=== PATIENT | female | born 1940 | race Caucasian/White ===

== ENCOUNTER 2017-03-04 21:08 | Inpatient (IN) | payer MEDICARE, OTHER ==
[2017-03-04 21:52] LABS: CHLORIDE,CL 103 mmol/L (101-111); SODIUM,NA 138 mmol/L (135-145)
[2017-03-04] MEDS ORDERED: Sodium Chloride 0.9% 1,000 ML IV ONE (22:00)
[2017-03-04] MEDS ORDERED: Levofloxacin/Dextrose 5%-Water 500 MG in Premix Bag 1 BAG IV ONE (22:25)
--- NOTE | 2017-03-04 22:45 | EDM.PDOC ---
ED HPI GENERAL MEDICAL PROBLEM - General Chief Complaint: General Stated Complaint: DIFFICULY WALKING AND TALKING Time Seen by Provider: 03/04/17 21:15 Source of Information: Reports: Patient History Limitations: Reports: No Limitations - History of Present Illness INITIAL COMMENTS - FREE TEXT/NARRATIVE: ED per w/c with daughter. Patient c/ weakness and having difficulty getting out ouf chair, describes overall and not related to extremity, Daughter reported that she complained of not feeling well after grandchild's xmas program. This afternoon at 230 patient seemed to have difficulty completing sentences and was more drowsy. Assited to recliner for nap then daughter noted over 1/2 hour to get her out of chair and to vehicle for program. On arrival to program, patient refused to go into school, and sat in vehicle. Daughter notes she went out frequenlty to check on her. Last known well 230 this afternoon. Generalized Pain Score (Numeric/FACES): 2 - Related Data Allergies Allergy/AdvReac Type Severity Reaction Status Date / Time Penicillins Allergy Hives Verified 03/04/17 23:27 [id number] Reductase Allergy Muscle Verified 03/04/17 23:27 Inhibitor Aches Home Meds: Home Meds Amitriptyline [Elavil] 50 mg PO BEDTIME 03/04/17 [History] Aspirin 81 mg PO DAILY 03/04/17 [History] Furosemide [Furosemide] 1 tab PO DAILY 03/04/17 [History] Gabapentin [Neurontin] 300 mg PO BID 03/04/17 [History] Metoprolol Succinate [Toprol XL] 25 mg PO DAILY 03/04/17 [History] Morphine Sulfate [Morphine Sulfate ER] 15 mg PO DAILY PRN 03/04/17 [History] Pantoprazole [ProTONIX] 40 mg PO ACBREAKFAST 03/04/17 [History] Potassium Chloride [Klor-Con 10] 20 meq PO DAILY 03/04/17 [History] amLODIPine [Norvasc] 5 mg PO DAILY 03/04/17 [History] traMADol HCl [Tramadol HCl] 1 tab PO ASDIRECTED PRN 03/04/17 [History] Past Medical History Cardiovascular History: Reports: [place] Neurological History: Reports: CVA Psychiatric History: Reports: None Endocrine/Metabolic History: Reports: None Hematologic History: Reports: None Immunologic History: Reports: None Oncologic (Cancer) History: Reports: None Dermatologic History: Reports: None - Past Surgical History Head Surgeries/Procedures: Reports: None HEENT Surgical History: Reports: Cataract Surgery Musculoskeletal Surgical History: Reports: Knee Replacement Social & Family History - Tobacco Use Smoking Status *Q: Heavy Tobacco Smoker Years of Tobacco use: 50 Packs/Tins Daily: 0.8 - Recreational Drug Use Recreational Drug Use: No ED ROS GENERAL - Review of Systems Review Of Systems: ROS reveals no pertinent complaints other than HPI. ED EXAM, GENERAL - Physical Exam Exam: See Below Exam Limited By: No Limitations General Appearance: Alert, No Apparent Distress Eye Exam: Bilateral Eye: EOMI, PERRL (2mm prior cataract surgery) Ears: Normal External Exam, Normal TMs Nose: Normal Inspection Throat/Mouth: Normal Oropharynx, Normal Voice, Other (faint droop) Head: Atraumatic, Normocephalic Neck: Normal Inspection, Non-Tender, Full Range of Motion Respiratory/Chest: No Respiratory Distress, Lungs Clear, Decreased Breath Sounds Cardiovascular: Normal Peripheral Pulses, Regular Rate, Rhythm GI/Abdominal: Normal Bowel Sounds, Soft, Non-Tender Back Exam: Full Range of Motion Extremities: Normal Inspection, Pedal Edema (trace) Neurological: Alert, Oriented, Normal Cognition, No Motor/Sensory Deficits, Other (faint left facial droop. ) Psychiatric: Normal Affect, Normal Mood Skin Exam: Warm, Dry, Intact Course - Vital Signs Last Recorded V/S: Last Vital Signs Temp 100.0 F 03/05/17 03:26 Pulse 99 03/05/17 03:26 Resp 16 03/05/17 03:26 BP 119/47 L 03/04/17 23:36 Pulse Ox 90 L 03/05/17 03:26 - Orders/Labs/Meds Orders: Active Orders 24 hr Category Date Time Status CULTURE BLOOD [BC] Stat Lab 03/04/17 22:20 Received CULTURE URINE [RM] Stat Lab 03/04/17 21:45 Received Amitriptyline [Elavil] Med 03/05/17 21:00 Active 50 mg PO BEDTIME Aspirin Med 03/05/17 09:00 Active 81 mg PO DAILY Furosemide [Lasix] Med 03/05/17 09:00 Active 40 mg PO DAILY Levofloxacin/Dextrose 5%-Water [Levaquin in D5W 750 MG/ Med 03/06/17 21:00 Active 150 ML] 750 mg Premix Bag 1 bag IV Q48H Metoprolol Succinate [Toprol XL] Med 03/05/17 09:00 Active 25 mg PO DAILY Morphine [MS Contin] Med 03/04/17 23:28 Active 15 mg PO DAILY PRN Pantoprazole [ProTONIX] Med 03/05/17 06:00 Active 40 mg PO ACBREAKFAST Potassium Chloride [Klor-Con 10] Med 03/04/17 23:31 Active 20 meq PO BID Code Status [Resuscitation Status] Routine Resus Stat 03/04/17 22:57 Ordered Medication Orders Acetaminophen (Tylenol) 650 mg PO Q4H PRN PRN Reason: Pain (Mild 1-3)/fever Hydrocodone Bitart/Acetaminophen ([place] 325-10 Mg) 0.5 tab PO Q4H PRN PRN Reason: Pain (moderate 4-6) Albuterol/Ipratropium (Duoneb 3.0-0.5 Mg/3 Ml) 3 ml NEB Q4H PRN PRN Reason: shortness of breath/wheezing Amitriptyline HCl (Elavil) 50 mg PO BEDTIME [facility] Amlodipine Besylate (Norvasc) 5 mg PO DAILY [facility] Aspirin (Aspirin) 81 mg PO DAILY [facility] Enoxaparin Sodium (Lovenox) 40 mg SUBCUT DAILY [facility] Furosemide (Lasix) 40 mg PO DAILY [facility] Gabapentin (Neurontin) 300 mg PO BID [facility] Last Admin: 03/05/17 00:31 Dose: 300 mg Levofloxacin/Dextrose 750 mg/ (Premix) 150 mls @ 100 mls/hr IV Q48H [facility] Sodium Chloride (Normal Saline) 1,000 mls @ 100 mls/hr IV ASDIRECTED [facility] Stop: 03/05/17 09:44 Last Admin: 03/05/17 03:19 Dose: 100 mls/hr Magnesium Hydroxide (Milk Of Magnesia) 30 ml PO Q12H PRN PRN Reason: Constipation Metoprolol Succinate (Toprol Xl) 25 mg PO DAILY [facility] Morphine Sulfate (Ms Contin) 15 mg PO DAILY PRN PRN Reason: Pain Last Admin: 03/05/17 00:18 Dose: 15 mg Ondansetron HCl (Zofran) 4 mg IVPUSH Q6H PRN PRN Reason: Nausea/Vomiting Pantoprazole Sodium (Protonix) 40 mg PO ACBREAKFAST MANJU Polyethylene Glycol (Miralax) 17 gm PO DAILY PRN PRN Reason: Constipation Last Admin: 03/05/17 00:19 Dose: 17 gm Potassium Chloride (Klor-Con 10) 20 meq PO BID [facility] Last Admin: 03/05/17 00:15 Dose: 20 meq Tramadol HCl (Ultram) mg PO ASDIRECTED PRN PRN Reason: Pain Zolpidem Tartrate (Ambien) 5 mg PO BEDTIME PRN PRN Reason: Sleep Last Admin: 03/05/17 00:17 Dose: 5 mg Labs: Laboratory Tests 03/04/17 03/04/17 03/04/17 Range/Units 21:23 21:23 21:23 WBC 17.5 H (5.0-10.0) 10^3/uL RBC 4.94 (4.2-5.4) 10^6/uL Hgb 15.1 (12.0-16.0) g/dL Hct 45.4 (37.0-47.0) % MCV 91.9 (80-100) fL MCH 30.6 (27.0-34.0) pg MCHC 33.3 (33.0-35.0) g/dL Plt Count 275 (150-450) 10^3/uL Neut % (Auto) 70.2 (42.2-75.2) % Lymph % (Auto) 15.6 L (20.5-50.1) % [place] % (Auto) 13.8 H (2-8) % Eos % (Auto) 0.2 L (1.0-3.0) % Baso % (Auto) 0.2 (0.0-1.0) % PT (9.0-12.0) SEC INR (0.9-1.2) Sodium 138 (135-145) mmol/L Potassium 3.2 L (3.6-5.0) mmol/L Chloride 103 (101-111) mmol/L Carbon Dioxide 27.0 (21.0-31.0) mmol/L Anion Gap 11.2 BUN 14 (7-18) mg/dL Creatinine 1.0 (0.6-1.3) mg/dL Est Cr Clr Drug Dosing 34.91 mL/min Estimated GFR (MDRD) 54 BUN/Creatinine Ratio 14.00 Glucose 176 H (74-105) mg/dL POC Glucose (83-110) mg/dl Lactic Acid 1.9 (0.5-2.2) mmol/L Calcium 9.7 (8.4-10.2) mg/dl Magnesium 1.7 L (1.8-2.5) mg/dL Total Bilirubin 0.8 (0.2-1.0) mg/dL AST 18 (10-42) IU/L ALT 9 L (10-60) IU/L Alkaline Phosphatase 124 H (42-121) IU/L Troponin I < 0.02 (0.00-0.02) ng/ml B-Natriuretic Peptide 50 (0-100) pg/ml Total Protein 7.4 (6.7-8.2) g/dl Albumin 3.5 (3.2-5.5) g/dl Globulin 3.9 Albumin/Globulin Ratio 0.90 Urine Color (YELLOW) Urine Appearance (CLEAR) Urine pH (5.0-9.0) Ur Specific [place] (1.005-1.030) Urine Protein (NEGATIVE) Urine Glucose (UA) (NEGATIVE) Urine Ketones (NEGATIVE) Urine Occult Blood (NEGATIVE) Urine Nitrite (NEGATIVE) Urine Bilirubin (NEGATIVE) Urine Urobilinogen (0.2-1.0) mg/dL Ur Leukocyte Esterase (NEGATIVE) Urine RBC /HPF Urine WBC (0-5/HPF) /HPF Ur Epithelial Cells /HPF Urine Bacteria (0-FEW/HPF) /HPF Ketones 03/04/17 03/04/17 03/04/17 Range/Units 21:23 21:23 21:36 WBC (5.0-10.0) 10^3/uL RBC (4.2-5.4) 10^6/uL Hgb (12.0-16.0) g/dL Hct (37.0-47.0) % MCV (80-100) fL MCH (27.0-34.0) pg MCHC (33.0-35.0) g/dL Plt Count (150-450) 10^3/uL Neut % (Auto) (42.2-75.2) % Lymph % (Auto) (20.5-50.1) % [place] % (Auto) (2-8) % Eos % (Auto) (1.0-3.0) % Baso % (Auto) (0.0-1.0) % PT 10.9 (9.0-12.0) SEC INR 1.1 (0.9-1.2) Sodium (135-145) mmol/L Potassium (3.6-5.0) mmol/L Chloride (101-111) mmol/L Carbon Dioxide (21.0-31.0) mmol/L Anion Gap BUN (7-18) mg/dL Creatinine (0.6-1.3) mg/dL Est Cr Clr Drug Dosing mL/min Estimated GFR (MDRD) BUN/Creatinine Ratio Glucose (74-105) mg/dL POC Glucose 211 H (83-110) mg/dl Lactic Acid (0.5-2.2) mmol/L Calcium (8.4-10.2) mg/dl Magnesium (1.8-2.5) mg/dL Total Bilirubin (0.2-1.0) mg/dL AST (10-42) IU/L ALT (10-60) IU/L Alkaline Phosphatase (42-121) IU/L Troponin I (0.00-0.02) ng/ml B-Natriuretic Peptide (0-100) pg/ml Total Protein (6.7-8.2) g/dl Albumin (3.2-5.5) g/dl Globulin Albumin/Globulin Ratio Urine Color (YELLOW) Urine Appearance (CLEAR) Urine pH (5.0-9.0) Ur Specific [place] (1.005-1.030) Urine Protein (NEGATIVE) Urine Glucose (UA) (NEGATIVE) Urine Ketones (NEGATIVE) Urine Occult Blood (NEGATIVE) Urine Nitrite (NEGATIVE) Urine Bilirubin (NEGATIVE) Urine Urobilinogen (0.2-1.0) mg/dL Ur Leukocyte Esterase (NEGATIVE) Urine RBC /HPF Urine WBC (0-5/HPF) /HPF Ur Epithelial Cells /HPF Urine Bacteria (0-FEW/HPF) /HPF Ketones Negative 03/04/ Range/Units 21:43 WBC (5.0-10.0) 10^3/uL RBC (4.2-5.4) 10^6/uL Hgb (12.0-16.0) g/dL Hct (37.0-47.0) % MCV (80-100) fL MCH (27.0-34.0) pg MCHC (33.0-35.0) g/dL Plt Count (150-450) 10^3/uL Neut % (Auto) (42.2-75.2) % Lymph % (Auto) (20.5-50.1) % [place] % (Auto) (2-8) % Eos % (Auto) (1.0-3.0) % Baso % (Auto) (0.0-1.0) % PT (9.0-12.0) SEC INR (0.9-1.2) Sodium (135-145) mmol/L Potassium (3.6-5.0) mmol/L Chloride (101-111) mmol/L Carbon Dioxide (21.0-31.0) mmol/L Anion Gap BUN (7-18) mg/dL Creatinine (0.6-1.3) mg/dL Est Cr Clr Drug Dosing mL/min Estimated GFR (MDRD) BUN/Creatinine Ratio Glucose (74-105) mg/dL POC Glucose (83-110) mg/dl Lactic Acid (0.5-2.2) mmol/L Calcium (8.4-10.2) mg/dl Magnesium (1.8-2.5) mg/dL Total Bilirubin (0.2-1.0) mg/dL AST (10-42) IU/L ALT (10-60) IU/L Alkaline Phosphatase (42-121) IU/L Troponin I (0.00-0.02) ng/ml B-Natriuretic Peptide (0-100) pg/ml Total Protein (6.7-8.2) g/dl Albumin (3.2-5.5) g/dl Globulin Albumin/Globulin Ratio Urine Color Yellow (YELLOW) Urine Appearance Cloudy (CLEAR) Urine pH 5.5 (5.0-9.0) Ur Specific [place] 1.015 (1.005-1.030) Urine Protein 30 H (NEGATIVE) Urine Glucose (UA) 500 H (NEGATIVE) Urine Ketones Negative (NEGATIVE) Urine Occult Blood Moderate H (NEGATIVE) Urine Nitrite Positive H (NEGATIVE) Urine Bilirubin Negative (NEGATIVE) Urine Urobilinogen 1.0 (0.2-1.0) mg/dL Ur Leukocyte Esterase Small H (NEGATIVE) Urine RBC 5-10 H /HPF Urine WBC >100 H (0-5/HPF) /HPF Ur Epithelial Cells Moderate H /HPF Urine Bacteria Many H (0-FEW/HPF) /HPF Ketones Meds: Medications Generic Name Dose Route Start Last Admin Trade Name Freq PRN Reason Stop Dose Admin Acetaminophen 650 mg 03/04/17 23:36 Tylenol PO Q4H PRN Pain (Mild 1-3)/fever Hydrocodone Bitart/Acetaminophen 0.5 tab 03/04/17 23:36 [place] 325-10 Mg PO Q4H PRN Pain (moderate 4-6) Albuterol/Ipratropium 3 ml 03/04/17 23:36 Duoneb 3.0-0.5 Mg/3 Ml NEB Q4H PRN shortness of breath/wheezing Amitriptyline HCl 50 mg 03/05/17 21:00 Elavil PO BEDTIME [facility] Amlodipine Besylate 5 mg 03/05/17 09:00 Norvasc PO DAILY [facility] Aspirin 81 mg 03/05/17 09:00 Aspirin PO DAILY [facility] Enoxaparin Sodium 40 mg 03/05/17 09:00 Lovenox SUBCUT DAILY [facility] Furosemide 40 mg 03/05/17 09:00 Lasix PO DAILY [facility] Gabapentin 300 mg 03/05/17 00:30 03/05/17 00:31 Neurontin PO 300 mg BID [facility] Administration Levofloxacin/Dextrose 750 mg/ 150 mls @ 100 mls/hr 03/06/17 21:00 Premix IV Q48H [facility] Sodium Chloride 1,000 mls @ 100 mls/hr 03/04/17 23:45 03/05/17 03:19 Normal Saline IV 03/05/17 09:44 100 mls/hr ASDIRECTED [facility]JU Administration Magnesium Hydroxide 30 ml 03/04/17 23:36 Milk Of Magnesia PO Q12H PRN Constipation Metoprolol Succinate 25 mg 03/05/17 09:00 Toprol Xl PO DAILY [facility] Morphine Sulfate 15 mg 03/04/17 23:28 03/05/17 00:18 Ms Contin PO 15 mg DAILY PRN Administration Pain Ondansetron HCl 4 mg 03/04/17 23:36 Zofran IVPUSH Q6H PRN Nausea/Vomiting Pantoprazole Sodium 40 mg 03/05/17 06:00 Protonix PO ACBREAKFAST [facility] Polyethylene Glycol 17 gm 03/04/17 23:36 03/05/17 00:19 Miralax PO 17 gm DAILY PRN Administration Constipation Potassium Chloride 20 meq 03/04/17 23:31 03/05/17 00:15 Klor-Con 10 PO 20 meq BID [facility]JU Administration Tramadol HCl mg 03/04/17 23:45 Ultram PO ASDIRECTED PRN Pain Zolpidem Tartrate 5 mg 03/04/17 23:36 03/05/17 00:17 Ambien PO 5 mg BEDTIME PRN Administration Sleep Discontinued Medications Generic Name Dose Route Start Last Admin Trade Name Freq PRN Reason Stop Dose Admin Sodium Chloride 1,000 mls @ 500 mls/hr 03/04/17 22:00 03/04/17 22:04 Normal Saline IV 03/04/17 23:59 200 mls/hr .BOLUS ONE Administration Levofloxacin/Dextrose 500 mg/ 100 mls @ 100 mls/hr 03/04/17 22:25 03/04/17 22 :33 Premix IV 03/04/17 23:24 100 mls/hr ONETIME ONE Administration Sodium Chloride 1,000 mls @ 500 mls/hr 03/04/17 23:45 03/05/17 01:21 Normal Saline IV 03/05/17 01:44 500 mls/hr ASDIRECTED [facility]JU Administration Magnesium Oxide 500 mg 03/04/17 23:34 03/05/17 00:17 Magnesium Oxide PO 03/04/17 23:35 500 mg ONETIME ONE Administration Potassium Chloride 40 meq 03/04/17 23:32 03/05/17 00:14 Klor-Con 10 PO 03/04/17 23:33 40 meq ONETIME ONE Administration - Radiology Interpretation Free Text/Narrative:: CT head negative for acute process. - Re-Assessments/Exams Free Text/Narrative Re-Assessment/Exam: 03/05/17 03:[address] Estrada. Agree to admit for further management of UTI and weakness. Departure - Departure Time of Disposition: 22:48 Disposition: Admitted As Inpatient 67 Condition: Undetermined Clinical Impression: Hyperglycemia, History of CVA (cerebrovascular accident) without residual deficits UTI (urinary tract infection) Qualifiers: Urinary tract infection type: acute cystitis Hematuria presence: without hematuria Qualified Code(s): N30.00 - Acute cystitis without hematuria HTN (hypertension) Qualifiers: Hypertension type: unspecified Qualified Code(s): I10 - Essential (primary) hypertension - Discharge Information - My Orders Last 24 Hours: My Active Orders 03/04/17 21:45 CULTURE URINE [RM] Stat 03/04/17 22:20 CULTURE BLOOD [BC] Stat 03/04/17 22:57 Code Status [Resuscitation Status] Routine - Assessment/Plan Last 24 Hours: My Active Orders 03/04/17 21:45 CULTURE URINE [RM] Stat 03/04/17 22:20 CULTURE BLOOD [BC] Stat 03/04/17 22:57 Code Status [Resuscitation Status] Routine
[2017-03-04] MEDS ORDERED: Potassium Chloride 10 MEQ Tab.ER PO ONE (23:32)
[2017-03-04] MEDS ORDERED: Ondansetron 4 MG/2 ML SDV IVPUSH PRN (23:36)
[2017-03-04] MEDS ORDERED: Magnesium Hydroxide 400 MG/5 ML Susp 30 ML Cup PO PRN (23:36)
[2017-03-04] MEDS ORDERED: Polyethylene Glycol 3350 Powder 17 GM Packet PO PRN (23:36)
[2017-03-04] MEDS ORDERED: Albuterol/Ipratropium 3.0-0.5 MG/3 ML Neb Soln NEB PRN (23:36)
[2017-03-04] MEDS ORDERED: Sodium Chloride 0.9% 1,000 ML IV SCH ×2 (23:45)
--- NOTE | 2017-03-04 23:52 | PCM.HP ---
H&P History of Present Illness - General Date of Service: 03/04/17 Admit Problem/Dx: Admission Diagnosis/Problem Admission Diagnosis/Problem Sepsis Source of Information: Patient, Family (Daughter) History Limitations: Reports: No Limitations - History of Present Illness Initial Comments - Free Text/Narative: 76-year-old female with history of coronary artery disease status post stent, prediabetes, restless leg syndrome, tobacco abuse, insomnia, hypertension, CVA in 1999, COPD presents to the emergency room for not feeling well for the last 3 days. History was obtained from patient and daughter. Patient started feeling groggy was generalized weakness and having dry mouth and decreased urinary frequency for the last 3 days. Today her weakness was worse and felt cold. She was going for event in a car and she felt very weak that she couldn't get out of the car so she was brought to the emergency room. They deny unilateral weakness/numbness/tingling, facial drooping, difficulty swallowing, confusion, fever, nausea, vomiting, chest pain, shortness breath, wheezing, cough, upper respiratory symptoms, sore throat, abdominal pain, urinary frequency, dysuria, changes occur or the smell of the urine, lower extremities edema, any other symptoms or concerns. In emergency room patient heart rate was 91, respiratory rate 22, sats in the low 90s. CT head was unremarkable for acute findings. Laboratory data reported WBC 17.5 K. Potassium 3.2. Glucose 211. Magnesium 1.7. Creatinine 1. LFTs are unremarkable. Troponin and BNP are normal. Her UA was positive for nitrate, moderate occult blood, small leukocyte esterase, 5-10 RBC, more than 100 WBC, many bacteria. She was started on IV fluid of normal saline at 200 mL per hour. Blood and urine cultures were obtained and she was started on Levaquin 750 mg IV. She was admitted to the floor. Generalized Pain Score (Numeric/FACES): 2 - Related Data Allergies/Adverse Reactions: Allergies Allergy/AdvReac Type Severity Reaction Status Date / Time Penicillins Allergy Hives Verified 03/04/17 23:27 Ezcxzer-Wch-Tho Reductase Allergy Muscle Verified 03/04/17 23:27 Inhibitor Aches Home Medications: Home Meds Amitriptyline [Elavil] 50 mg PO BEDTIME 03/04/17 [History] Aspirin 81 mg PO DAILY 03/04/17 [History] Furosemide [Furosemide] 1 tab PO DAILY 03/04/17 [History] Gabapentin [Neurontin] 300 mg PO BID 03/04/17 [History] Metoprolol Succinate [Toprol XL] 25 mg PO DAILY 03/04/17 [History] Morphine Sulfate [Morphine Sulfate ER] 15 mg PO DAILY PRN 03/04/17 [History] Pantoprazole [ProTONIX] 40 mg PO ACBREAKFAST 03/04/17 [History] Potassium Chloride [Klor-Con 10] 20 meq PO DAILY 03/04/17 [History] amLODIPine [Norvasc] 5 mg PO DAILY 03/04/17 [History] traMADol HCl [Tramadol HCl] 1 tab PO ASDIRECTED PRN 03/04/17 [History] Past Medical History Cardiovascular History: Reports: [place] Neurological History: Reports: CVA Psychiatric History: Reports: None Endocrine/Metabolic History: Reports: None Hematologic History: Reports: None Immunologic History: Reports: None Oncologic (Cancer) History: Reports: None Dermatologic History: Reports: None - Past Surgical History Head Surgeries/Procedures: Reports: None HEENT Surgical History: Reports: Cataract Surgery Musculoskeletal Surgical History: Reports: Knee Replacement Social & Family History - Tobacco Use Smoking Status *Q: Heavy Tobacco Smoker Years of Tobacco use: 50 Packs/Tins Daily: 0.8 - Recreational Drug Use Recreational Drug Use: No H&P Review of Systems - Review of Systems: Review Of Systems: ROS reveals no pertinent complaints other than HPI. Exam - Exam Exam: See Below - Vital Signs Vital Signs: Last Vital Signs Temp 37.6 C 03/04/17 21:15 Pulse 91 03/04/17 22:24 Resp 20 03/04/17 22:24 BP 104/51 L 03/04/17 21:45 Pulse Ox 91 L 03/04/17 22:24 Weight: 77.564 kg - Exam General: Alert, Oriented, Cooperative, Mild Distress. No: Moderate Distress, Severe Distress, Sedated, Lethargic, Obtunded HEENT: Conjunctiva Clear, EACs Clear, EOMI, Hearing Intact, Mucosa Moist & [place] , Nares Patent, Normal Nasal Septum, Posterior Pharynx Clear, Pupils Equal, Pupils Reactive, TMs Clear Neck: Supple, Trachea Midline Lungs: Clear to Auscultation, Normal Respiratory Effort. No: Crackles, Rales, Rhonchi, Stridor, Wheezing Cardiovascular: Regular Rate, Regular Rhythm, Normal S1, Normal S2 GI/Abdominal Exam: Normal Bowel Sounds, Soft, Non-Tender, No Organomegaly, No Distention, No Abnormal Bruit, No Mass (Female) Exam: Deferred Rectal (Female) Exam: Deferred Back Exam: Normal Inspection, Full Range of Motion. No: CVA Tenderness (L), CVA Tenderness (R) Extremities: Normal Inspection, Normal Range of Motion, Non-Tender, No Pedal Edema, Normal Capillary Refill Peripheral Pulses: 2+: Radial (L), Radial (R) Skin: Warm, Dry, Intact, Other (Tenting sign is positive) Neurological: Cranial Nerves Intact, Reflexes Equal Bilateral, Strength Equal Bilateral, Normal Speech, Normal Tone, Sensation Intact. No: Focal Deficit Neuro Extensive - Mental Status: Alert, Oriented x3, Normal Mood/Affect, Normal Cognition Psychiatric: Alert, Normal Affect, Normal Mood - Patient Data Result Diagrams: 03/04/17 21:23 03/04/17 21:23 *Q Meaningful Use (ADM) - VTE *Q VTE Criteria *Q: - Stroke *Q Stroke Criteria *Q: - AMI *Q AMI Criteria *Q: - Problem List (1) Sepsis SNOMED Code(s): 01072162 ICD Code: A41.9 - SEPSIS, UNSPECIFIED ORGANISM Status: Acute Priority: High Current Visit: Yes (2) Complicated UTI (urinary tract infection) SNOMED Code(s): 68046163 ICD Code: N39.0 - URINARY TRACT INFECTION, SITE NOT SPECIFIED Status: Acute Priority: High Current Visit: Yes (3) Hyperkalemia SNOMED Code(s): 26424766 ICD Code: E87.5 - HYPERKALEMIA Status: Acute Current Visit: Yes (4) Hypomagnesemia SNOMED Code(s): 939034661 ICD Code: E83.42 - HYPOMAGNESEMIA Status: Acute Current Visit: Yes (5) Dehydration SNOMED Code(s): 78562810 ICD Code: E86.0 - DEHYDRATION Status: Acute Priority: High Current Visit: Yes (6) History of COPD SNOMED Code(s): 403891085 ICD Code: Z87.09 - PERSONAL HISTORY OF OTHER DISEASES OF THE RESPIRATORY SYSTEM Status: Chronic Current Visit: Yes (7) History of coronary artery disease SNOMED Code(s): 345077168 ICD Code: Z86.79 - PERSONAL HISTORY OF OTHER DISEASES OF THE CIRCULATORY SYSTEM Status: Chronic Current Visit: Yes (8) Chronic back pain SNOMED Code(s): 557147614 ICD Code: M54.9 - DORSALGIA, UNSPECIFIED; G89.29 - OTHER CHRONIC PAIN Status: Chronic Current Visit: Yes (9) HTN (hypertension) SNOMED Code(s): 27060795 ICD Code: I10 - ESSENTIAL (PRIMARY) HYPERTENSION Status: Chronic Current Visit: Yes Qualifiers: Hypertension type: unspecified Qualified Code(s): I10 - Essential (primary ) hypertension (10) History of CVA (cerebrovascular accident) without residual deficits Status: Chronic Current Visit: Yes (11) Hyperglycemia SNOMED Code(s): 57967076 ICD Code: R73.9 - HYPERGLYCEMIA, UNSPECIFIED Status: Chronic Current Visit: Yes Problem List Initiated/Reviewed/Updated: Yes Orders Last 24hrs: Active Orders 24 hr Category Date Time Status Patient Status [ADT] Routine ADT 03/04/17 23:36 Active Height and Weight [RC] DAILY Care 03/04/17 23:36 Active Intake and Output [RC] Q6H Care 03/04/17 23:38 Active Notify Provider Vital Signs [RC] ASDIRECTED Care 03/04/17 23:38 Active Oxygen Therapy [RC] PRN Care 03/04/17 23:36 Active RT Aerosol Therapy [RC] ASDIRECTED Care 03/04/17 23:43 Active Up With Assistance [RC] ASDIRECTED Care 03/04/17 23:36 Active Up ad Ana [RC] ASDIRECTED Care 03/04/17 23:36 Active VTE/DVT Education [RC] PER UNIT ROUTINE Care 03/04/17 23:36 Active Vital Signs [RC] Q4H Care 03/04/17 23:36 Active PT Evaluation and Treatment [CONS] Routine Cons 03/04/17 23:36 Active Heart Healthy Diet [DIET] Diet 03/04/17 Breakfast Active BASIC METABOLIC PANEL,BMP [CHEM] AM Lab 03/05/17 05:11 Ordered CBC WITH AUTO DIFF [HEME] AM Lab 03/05/17 05:11 Ordered MAGNESIUM [CHEM] AM Lab 03/05/17 05:11 Ordered Acetaminophen [Tylenol] Med 03/04/17 23:36 Ordered 650 mg PO Q4H PRN Acetaminophen/HYDROcodone [[place] 325-10 MG] Med 03/04/17 23:36 Ordered 0.5 tab PO Q4H PRN Albuterol/Ipratropium [DuoNeb 3.0-0.5 MG/3 ML] Med 03/04/17 23:36 Ordered 3 ml NEB Q4H PRN Amitriptyline [Elavil] Med 03/05/17 21:00 Active 50 mg PO BEDTIME Aspirin Med 03/05/17 09:00 Active 81 mg PO DAILY Enoxaparin [Lovenox] Med 03/05/17 09:00 Ordered 40 mg SUBCUT DAILY Furosemide [Lasix] Med 03/05/17 09:00 Active 40 mg PO DAILY Gabapentin [Neurontin] Med 03/05/17 09:00 Active 300 mg PO BID Levofloxacin/Dextrose 5%-Water [Levaquin in D5W 750 MG/ Med 03/06/17 21:00 Active 150 ML] 750 mg Premix Bag 1 bag IV Q48H Magnesium Hydroxide [Milk of Magnesia] Med 03/04/17 23:36 Ordered 30 ml PO Q12H PRN Metoprolol Succinate [Toprol XL] Med 03/05/17 09:00 Active 25 mg PO DAILY Morphine [MS Contin] Med 03/04/17 23:28 Active 15 mg PO DAILY PRN Ondansetron [Zofran] Med 03/04/17 23:36 Ordered 4 mg IVPUSH Q6H PRN Pantoprazole [ProTONIX] Med 03/05/17 06:00 Active 40 mg PO ACBREAKFAST Polyethylene Glycol 3350 [MiraLAX] Med 03/04/17 23:36 Ordered 17 gm PO DAILY PRN Potassium Chloride [Klor-Con 10] Med 03/04/17 23:31 Active 20 meq PO BID Sodium Chloride 0.9% [Normal Saline] 1,000 ml Med 03/04/17 23:45 Ordered IV ASDIRECTED Sodium Chloride 0.9% [Normal Saline] 1,000 ml Med 03/04/17 23:45 Ordered IV ASDIRECTED Zolpidem [Ambien] Med 03/04/17 23:36 Ordered 5 mg PO BEDTIME PRN amLODIPine [Norvasc] Med 03/05/17 09:00 Ordered 5 mg PO DAILY traMADol [Ultram] Med 03/04/17 23:45 Ordered DOSE mg PO ASDIRECTED PRN Code Status [Resuscitation Status] Routine Resus Stat 03/04/17 22:57 Ordered Medication Orders Acetaminophen (Tylenol) 650 mg PO Q4H PRN PRN Reason: Pain (Mild 1-3)/fever Hydrocodone Bitart/Acetaminophen ([place] 325-10 Mg) 0.5 tab PO Q4H PRN PRN Reason: Pain (moderate 4-6) Albuterol/Ipratropium (Duoneb 3.0-0.5 Mg/3 Ml) 3 ml NEB Q4H PRN PRN Reason: shortness of breath/wheezing Amitriptyline HCl (Elavil) 50 mg PO BEDTIME [facility] Amlodipine Besylate (Norvasc) 5 mg PO DAILY [facility] Aspirin (Aspirin) 81 mg PO DAILY [facility] Enoxaparin Sodium (Lovenox) 40 mg SUBCUT DAILY [facility] Furosemide (Lasix) 40 mg PO DAILY [facility] Gabapentin (Neurontin) 300 mg PO BID [facility] Sodium Chloride (Normal Saline) 1,000 mls @ 500 mls/hr IV .BOLUS ONE Stop: 03/04/17 23:59 Last Admin: 03/04/17 22:04 Dose: 200 mls/hr Levofloxacin/Dextrose 750 mg/ (Premix) 150 mls @ 100 mls/hr IV Q48H MANJU Sodium Chloride (Normal Saline) 1,000 mls @ 500 mls/hr IV ASDIRECTED MANJU Stop: 03/05/17 01:44 Sodium Chloride (Normal Saline) 1,000 mls @ 100 mls/hr IV ASDIRECTED MANJU Stop: 03/05/17 09:44 Magnesium Hydroxide (Milk Of Magnesia) 30 ml PO Q12H PRN PRN Reason: Constipation Metoprolol Succinate (Toprol Xl) 25 mg PO DAILY [facility] Morphine Sulfate (Ms Contin) 15 mg PO DAILY PRN PRN Reason: Pain Ondansetron HCl (Zofran) 4 mg IVPUSH Q6H PRN PRN Reason: Nausea/Vomiting Pantoprazole Sodium (Protonix) 40 mg PO ACBREAKFAST [facility] Polyethylene Glycol (Miralax) 17 gm PO DAILY PRN PRN Reason: Constipation Potassium Chloride (Klor-Con 10) 20 meq PO BID [facility] Tramadol HCl (Ultram) mg PO ASDIRECTED PRN PRN Reason: Pain Zolpidem Tartrate (Ambien) 5 mg PO BEDTIME PRN PRN Reason: Sleep Assessment/Plan Comment:: Impression 76-year-old female with the above past medical history presented with complicated UTI and sepsis, dehydration, hypokalemia, hypomagnesemia. Plan: Continue IV fluid of normal saline at 500 mL for total of 2 L, then start 1 L of normal saline at 100 m-L per hour -Levaquin IV -Awaiting urine and blood cultures -Add potassium chloride 40 mEq 1 time now and continue her daily potassium chloride -Magnesium oxide 500 mg once now -Continue her home medications -repeat labs in am -I and os every 6 hours -Daily weight Lovenox for DVT prophylaxis Patient and daughter requested DNR for CODE STATUS Plan of care was discussed with patient and daughter and to verbalize understanding agreed with
[2017-03-05] MEDS: Potassium Chloride 10 MEQ Tab.ER PO SCH ×3 (00:15→21:03)
[2017-03-05] MEDS: Zolpidem 5 MG Tab PO PRN ×2 (00:17→21:37)
[2017-03-05] MEDS: Morphine 15 MG Tab.ER PO PRN (00:18)
[2017-03-05] MEDS: Gabapentin 300 MG Cap PO SCH ×3 (00:31→21:04)
[2017-03-05] MEDS: Pantoprazole 40 MG Tab.CR PO SCH (05:45)
[2017-03-05 07:18] LABS: CHLORIDE,CL 113 mmol/L (101-111); SODIUM,NA 140 mmol/L (135-145)
[2017-03-05] MEDS: amLODIPine 5 MG Tab PO SCH (08:44)
[2017-03-05] MEDS: Furosemide 40 MG Tab PO SCH (08:45)
[2017-03-05] MEDS: Aspirin 81 MG Tab.Chew PO SCH (08:45)
[2017-03-05] MEDS: Metoprolol Succinate 25 MG Tab.ER PO SCH (08:45)
[2017-03-05] MEDS: Enoxaparin 40 MG/0.4 ML Syringe SUBCUT SCH (09:00)
[2017-03-05] MEDS ORDERED: Gabapentin 300 MG Cap PO SCH (09:00)
--- NOTE | 2017-03-05 11:01 | PCM.PN ---
- General Info Date of Service: 03/05/17 Admission Dx/Problem (Free Text): Admission Diagnosis/Problem Admission Diagnosis/Problem Sepsis Subjective Update: Patient stated that she is feeling better. However she still feeling weak. She denies new symptoms. She denies fever, chills, nausea, vomiting, chest pain, shortness breath, cough, wheezing, abdominal pain, urinary symptoms, any other symptoms or concerns. She had 1 episode of incontinence of large amount of urine yesterday. - Patient Data Vitals - Most Recent: Last Vital Signs Temp 37.6 C 03/05/17 10:49 Pulse 80 03/05/17 10:49 Resp 20 03/05/17 10:49 BP 98/53 L 03/05/17 10:49 Pulse Ox 88 L 03/05/17 10:49 Weight - Most Recent: 77.564 kg I&O - Last 24 Hours: Intake & Output 03/04/17 03/05/17 03/05/17 22:59 06:59 14:59 Intake Total 2937 325 Output Total 350 100 Balance 2587 225 Lab Results Last 24 Hours: Laboratory Results - last 24 hr 03/05/17 03/05/17 Range/Units 06:30 06:30 WBC 18.2 H (5.0-10.0) 10^3/uL RBC 4.24 (4.2-5.4) 10^6/uL Hgb 13.0 D (12.0-16.0) g/dL Hct 39.3 (37.0-47.0) % MCV 92.7 (80-100) fL MCH 30.7 (27.0-34.0) pg MCHC 33.1 (33.0-35.0) g/dL Plt Count 231 (150-450) 10^3/uL Neut % (Auto) 73.3 (42.2-75.2) % Lymph % (Auto) 13.3 L (20.5-50.1) % [place] % (Auto) 13.1 H (2-8) % Eos % (Auto) 0.1 L (1.0-3.0) % Baso % (Auto) 0.2 (0.0-1.0) % Sodium 140 (135-145) mmol/L Potassium 4.3 (3.6-5.0) mmol/L Chloride 113 H (101-111) mmol/L Carbon Dioxide 22.0 (21.0-31.0) mmol/L Anion Gap 9.3 BUN 12 (7-18) mg/dL Creatinine 0.9 (0.6-1.3) mg/dL Est Cr Clr Drug Dosing 40.75 mL/min Estimated GFR (MDRD) > 60 Glucose 140 H (74-105) mg/dL Calcium 8.9 (8.4-10.2) mg/dl Magnesium 1.6 L (1.8-2.5) mg/dL Med Orders - Current: Current Medications Acetaminophen (Tylenol) 650 mg PO Q4H PRN PRN Reason: Pain (Mild 1-3)/fever Hydrocodone Bitart/Acetaminophen ([place] 325-10 Mg) 0.5 tab PO Q4H PRN PRN Reason: Pain (moderate 4-6) Albuterol/Ipratropium (Duoneb 3.0-0.5 Mg/3 Ml) 3 ml NEB Q4H PRN PRN Reason: shortness of breath/wheezing Amitriptyline HCl (Elavil) 50 mg PO BEDTIME [facility] Amlodipine Besylate (Norvasc) 5 mg PO DAILY [facility] Last Admin: 03/05/17 08:44 Dose: 5 mg Aspirin (Aspirin) 81 mg PO DAILY [facility] Last Admin: 03/05/17 08:45 Dose: 81 mg Enoxaparin Sodium (Lovenox) 40 mg SUBCUT DAILY [facility] Furosemide (Lasix) 40 mg PO DAILY [facility] Last Admin: 03/05/17 08:45 Dose: 40 mg Gabapentin (Neurontin) 300 mg PO BID [facility] Last Admin: 03/05/17 08:44 Dose: 300 mg Levofloxacin/Dextrose 750 mg/ (Premix) 150 mls @ 100 mls/hr IV Q48H [facility] Magnesium Hydroxide (Milk Of Magnesia) 30 ml PO Q12H PRN PRN Reason: Constipation Metoprolol Succinate (Toprol Xl) 25 mg PO DAILY [facility] Last Admin: 03/05/17 08:45 Dose: 25 mg Morphine Sulfate (Ms Contin) 15 mg PO DAILY PRN PRN Reason: Pain Last Admin: 03/05/17 00:18 Dose: 15 mg Ondansetron HCl (Zofran) 4 mg IVPUSH Q6H PRN PRN Reason: Nausea/Vomiting Pantoprazole Sodium (Protonix) 40 mg PO ACBREAKFAST [facility] Last Admin: 03/05/17 05:45 Dose: 40 mg Polyethylene Glycol (Miralax) 17 gm PO DAILY PRN PRN Reason: Constipation Last Admin: 03/05/17 00:19 Dose: 17 gm Potassium Chloride (Klor-Con 10) 20 meq PO BID [facility] Last Admin: 03/05/17 08:44 Dose: 20 meq Tramadol HCl (Ultram) mg PO ASDIRECTED PRN PRN Reason: Pain Zolpidem Tartrate (Ambien) 5 mg PO BEDTIME PRN PRN Reason: Sleep Last Admin: 03/05/17 00:17 Dose: 5 mg Discontinued Medications Sodium Chloride (Normal Saline) 1,000 mls @ 500 mls/hr IV .BOLUS ONE Stop: 03/04/17 23:59 Last Admin: 03/04/17 22:04 Dose: 200 mls/hr Levofloxacin/Dextrose 500 mg/ (Premix) 100 mls @ 100 mls/hr IV ONETIME ONE Stop: 03/04/17 23:24 Last Admin: 03/04/17 22:33 Dose: 100 mls/hr Sodium Chloride (Normal Saline) 1,000 mls @ 500 mls/hr IV ASDIRECTED [facility] Stop: 03/05/17 01:44 Last Admin: 03/05/17 01:21 Dose: 500 mls/hr Sodium Chloride (Normal Saline) 1,000 mls @ 100 mls/hr IV ASDIRECTED [facility] Stop: 03/05/17 09:44 Last Admin: 03/05/17 03:19 Dose: 100 mls/hr Magnesium Oxide (Magnesium Oxide) 500 mg PO ONETIME ONE Stop: 03/04/17 23:35 Last Admin: 03/05/17 00:17 Dose: 500 mg Potassium Chloride (Klor-Con 10) 40 meq PO ONETIME ONE Stop: 03/04/17 23:33 Last Admin: 03/05/17 00:14 Dose: 40 meq - Exam General: Alert, Oriented, Cooperative, No Acute Distress HEENT: Pupils Equal, Pupils Reactive, EOMI, Mucous Membr. Moist/[place] Neck: Supple, Trachea Midline Lungs: Clear to Auscultation, Normal Respiratory Effort Cardiovascular: Regular Rate, Regular Rhythm GI/Abdominal Exam: Normal Bowel Sounds, Soft, Non-Tender, No Organomegaly, No Distention, No Abnormal Bruit, No Mass (Female) Exam: Deferred Back Exam: Normal Inspection, Full Range of Motion. No: CVA Tenderness (L), CVA Tenderness (R) Extremities: Normal Inspection, Normal Range of Motion, Non-Tender, No Pedal Edema, Normal Capillary Refill - Problem List & Annotations (1) Sepsis SNOMED Code(s): 92634988 Code(s): A41.9 - SEPSIS, UNSPECIFIED ORGANISM Status: Acute Priority: High Current Visit: Yes (2) Complicated UTI (urinary tract infection) SNOMED Code(s): 06072815 Code(s): N39.0 - URINARY TRACT INFECTION, SITE NOT SPECIFIED Status: Acute Priority: High Current Visit: Yes (3) Hyperkalemia SNOMED Code(s): 42747597 Code(s): E87.5 - HYPERKALEMIA Status: Acute Current Visit: Yes (4) Hypomagnesemia SNOMED Code(s): 887026591 Code(s): E83.42 - HYPOMAGNESEMIA Status: Acute Current Visit: Yes (5) Dehydration SNOMED Code(s): 57427069 Code(s): E86.0 - DEHYDRATION Status: Acute Priority: High Current Visit : Yes (6) History of COPD SNOMED Code(s): 314186462 Code(s): Z87.09 - PERSONAL HISTORY OF OTHER DISEASES OF THE RESPIRATORY SYSTEM Status: Chronic Current Visit: Yes (7) History of coronary artery disease SNOMED Code(s): 434701193 Code(s): Z86.79 - PERSONAL HISTORY OF OTHER DISEASES OF THE CIRCULATORY SYSTEM Status: Chronic Current Visit: Yes (8) Chronic back pain SNOMED Code(s): 982525942 Code(s): M54.9 - DORSALGIA, UNSPECIFIED; G89.29 - OTHER CHRONIC PAIN Status : Chronic Current Visit: Yes (9) HTN (hypertension) SNOMED Code(s): 50462735 Code(s): I10 - ESSENTIAL (PRIMARY) HYPERTENSION Status: Chronic Current Visit: Yes Qualifiers: Hypertension type: unspecified Qualified Code(s): I10 - Essential (primary ) hypertension (10) History of CVA (cerebrovascular accident) without residual deficits Status: Chronic Current Visit: Yes (11) Hyperglycemia SNOMED Code(s): 91923568 Code(s): R73.9 - HYPERGLYCEMIA, UNSPECIFIED Status: Chronic Current Visit : Yes - Problem List Review Problem List Initiated/Reviewed/Updated: Yes - My Orders Last 24 Hours: My Active Orders 03/04/17 23:45 traMADol [Ultram] DOSE mg PO ASDIRECTED PRN 03/05/17 00:30 Gabapentin [Neurontin] 300 mg PO BID 03/05/17 09:00 amLODIPine [Norvasc] 5 mg PO DAILY 03/06/17 05:11 BASIC METABOLIC PANEL,BMP [CHEM] AM CBC WITH AUTO DIFF [HEME] AM - Assessment Assessment:: Impression 76-year-old female with the above past medical history presented with complicated UTI and sepsis, dehydration, hypokalemia, hypomagnesemia. Plan: Patient IV fluid of normal saline at 500 mL for total of 2 L, then start 1 L of normal saline at 100 m-L per hour -Continue Levaquin IV -Awaiting urine and blood cultures -continue her daily potassium chloride -start Magnesium oxide 500 mg bid -Continue her home medications -repeat labs in am -I and os every 6 hours -Daily weight -Physical therapy consult Lovenox for DVT prophylaxis Patient and daughter requested DNR for CODE STATUS - Plan Plan:: Impression 76-year-old female with the above past medical history presented with complicated UTI and sepsis, dehydration, hypokalemia, hypomagnesemia. Plan: Continue IV fluid of normal saline at 500 mL for total of 2 L, then start 1 L of normal saline at 100 m-L per hour -Levaquin IV -Awaiting urine and blood cultures -Add potassium chloride 40 mEq 1 time now and continue her daily potassium chloride -Magnesium oxide 500 mg once now -Continue her home medications -repeat labs in am -I and os every 6 hours -Daily weight Lovenox for DVT prophylaxis Patient and daughter requested DNR for CODE STATUS Plan of care was discussed with patient and daughter and to verbalize understanding agreed with
--- NOTE | 2017-03-05 14:04 | CR ---
Clinical history: 76-year-old hospitalized female patient with clinical "constipation". Interpretation: Flat plate of the abdomen confirm surgical clips gallbladder fossa right upper quadra nt and long midline row of metal jigar lower abdomen. Transverse line of sutures across the lower p tanvi. 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 Dense calcifications left upper quadrant presumably splenic artery. No sign of other foreign body, abdominal soft tissue mass or mechanical bowel obstruction. *No abnormal stool concentrated.
[2017-03-05] MEDS: Amitriptyline 25 MG Tab PO SCH (21:03)
[2017-03-06] MEDS: Acetaminophen 325 MG Tab PO PRN ×3 (00:14→09:47)
[2017-03-06] MEDS: Pantoprazole 40 MG Tab.CR PO SCH (05:08)
[2017-03-06 07:07] LABS: CHLORIDE,CL 110 mmol/L (101-111); SODIUM,NA 139 mmol/L (135-145)
[2017-03-06] MEDS: Enoxaparin 40 MG/0.4 ML Syringe SUBCUT SCH (09:46)
[2017-03-06] MEDS: Aspirin 81 MG Tab.Chew PO SCH (09:46)
[2017-03-06] MEDS: Furosemide 40 MG Tab PO SCH (09:47)
[2017-03-06] MEDS: Potassium Chloride 10 MEQ Tab.ER PO SCH ×2 (09:47→20:42)
[2017-03-06] MEDS: Gabapentin 300 MG Cap PO SCH ×2 (09:47→20:42)
[2017-03-06] MEDS: amLODIPine 5 MG Tab PO SCH (09:50)
[2017-03-06] MEDS: Metoprolol Succinate 25 MG Tab.ER PO SCH (09:51)
--- NOTE | 2017-03-06 11:02 | PCM.PN ---
- General Info Date of Service: 03/06/17 Admission Dx/Problem (Free Text): Admission Diagnosis/Problem Admission Diagnosis/Problem Sepsis Subjective Update: Patient stated that she is feeling better today. Her weakness improved.. She denies new symptoms. She denies fever, chills, nausea, vomiting, chest pain, shortness breath, cough, wheezing, abdominal pain, urinary symptoms, any other symptoms or concerns. - Patient Data Vitals - Most Recent: Last Vital Signs Temp 36.2 C 03/06/17 07:52 Pulse 92 03/06/17 10:24 Resp 20 03/06/17 10:24 BP 107/59 L 03/06/17 10:24 Pulse Ox 93 L 03/06/17 10:24 Weight - Most Recent: 76.022 kg I&O - Last 24 Hours: Intake & Output 03/05/17 03/06/17 03/06/17 22:59 06:59 14:59 Intake Total 350 555 Output Total 900 650 Balance -550 -95 Lab Results Last 24 Hours: Laboratory Results - last 24 hr 03/06/17 03/06/17 Range/Units 05:48 05:48 WBC 11.6 H (5.0-10.0) 10^3/uL RBC 4.09 L (4.2-5.4) 10^6/uL Hgb 12.4 (12.0-16.0) g/dL Hct 38.6 (37.0-47.0) % MCV 94.4 (80-100) fL MCH 30.3 (27.0-34.0) pg MCHC 32.1 L (33.0-35.0) g/dL Plt Count 249 (150-450) 10^3/uL Neut % (Auto) 63.7 (42.2-75.2) % Lymph % (Auto) 20.2 L (20.5-50.1) % [place] % (Auto) 12.8 H (2-8) % Eos % (Auto) 3.0 (1.0-3.0) % Baso % (Auto) 0.3 (0.0-1.0) % Sodium 139 (135-145) mmol/L Potassium 3.8 (3.6-5.0) mmol/L Chloride 110 (101-111) mmol/L Carbon Dioxide 23.0 (21.0-31.0) mmol/L Anion Gap 9.8 BUN 12 (7-18) mg/dL Creatinine 0.9 (0.6-1.3) mg/dL Est Cr Clr Drug Dosing 40.75 mL/min Estimated GFR (MDRD) > 60 Glucose 104 (74-105) mg/dL Calcium 9.6 (8.4-10.2) mg/dl Med Orders - Current: Current Medications Acetaminophen (Tylenol) 650 mg PO Q4H PRN PRN Reason: Pain (Mild 1-3)/fever Last Admin: 03/06/17 09:47 Dose: 650 mg Hydrocodone Bitart/Acetaminophen ([place] 325-10 Mg) 0.5 tab PO Q4H PRN PRN Reason: Pain (moderate 4-6) Albuterol/Ipratropium (Duoneb 3.0-0.5 Mg/3 Ml) 3 ml NEB Q4H PRN PRN Reason: shortness of breath/wheezing Amitriptyline HCl (Elavil) 50 mg PO BEDTIME [facility] Last Admin: 03/05/17 21:03 Dose: 50 mg Amlodipine Besylate (Norvasc) 5 mg PO DAILY [facility] Last Admin: 03/06/17 09:50 Dose: 5 mg Aspirin (Aspirin) 81 mg PO DAILY [facility] Last Admin: 03/06/17 09:46 Dose: 81 mg Enoxaparin Sodium (Lovenox) 40 mg SUBCUT DAILY [facility] Last Admin: 03/06/17 09:46 Dose: 40 mg Furosemide (Lasix) 40 mg PO DAILY [facility] Last Admin: 03/06/17 09:47 Dose: 40 mg Gabapentin (Neurontin) 300 mg PO BID [facility] Last Admin: 03/06/17 09:47 Dose: 300 mg Levofloxacin/Dextrose 750 mg/ (Premix) 150 mls @ 100 mls/hr IV Q48H [facility] Magnesium Hydroxide (Milk Of Magnesia) 30 ml PO Q12H PRN PRN Reason: Constipation Magnesium Oxide (Magnesium Oxide) 500 mg PO BIDM [facility] Last Admin: 03/06/17 09:46 Dose: 500 mg Metoprolol Succinate (Toprol Xl) 25 mg PO DAILY [facility] Last Admin: 03/06/17 09:51 Dose: 25 mg Morphine Sulfate (Ms Contin) 15 mg PO DAILY PRN PRN Reason: Pain Last Admin: 03/05/17 00:18 Dose: 15 mg Ondansetron HCl (Zofran) 4 mg IVPUSH Q6H PRN PRN Reason: Nausea/Vomiting Pantoprazole Sodium (Protonix) 40 mg PO ACBREAKFAST [facility] Last Admin: 03/06/17 05:08 Dose: 40 mg Polyethylene Glycol (Miralax) 17 gm PO DAILY PRN PRN Reason: Constipation Last Admin: 03/05/17 00:19 Dose: 17 gm Potassium Chloride (Klor-Con 10) 20 meq PO BID [facility] Last Admin: 03/06/17 09:47 Dose: 20 meq Tramadol HCl (Ultram) 50 mg PO Q6H PRN PRN Reason: Pain Zolpidem Tartrate (Ambien) 5 mg PO BEDTIME PRN PRN Reason: Sleep Last Admin: 03/05/17 21:37 Dose: 5 mg Discontinued Medications Sodium Chloride (Normal Saline) 1,000 mls @ 500 mls/hr IV .BOLUS ONE Stop: 03/04/17 23:59 Last Admin: 03/04/17 22:04 Dose: 200 mls/hr Levofloxacin/Dextrose 500 mg/ (Premix) 100 mls @ 100 mls/hr IV ONETIME ONE Stop: 03/04/17 23:24 Last Infusion: 03/05/17 13:20 Dose: Infused Sodium Chloride (Normal Saline) 1,000 mls @ 500 mls/hr IV ASDIRECTED [facility] Stop: 03/05/17 01:44 Last Admin: 03/05/17 01:21 Dose: 500 mls/hr Sodium Chloride (Normal Saline) 1,000 mls @ 100 mls/hr IV ASDIRECTED [facility] Stop: 03/05/17 09:44 Last Infusion: 03/05/17 13:20 Dose: Infused Magnesium Oxide (Magnesium Oxide) 500 mg PO ONETIME ONE Stop: 03/04/17 23:35 Last Admin: 03/05/17 00:17 Dose: 500 mg Potassium Chloride (Klor-Con 10) 40 meq PO ONETIME ONE Stop: 03/04/17 23:33 Last Admin: 03/05/17 00:14 Dose: 40 meq - Exam General: Alert, Oriented, Cooperative, No Acute Distress. No: Mild Distress, Moderate Distress, Severe Distress, Sedated, Lethargic, Obtunded HEENT: Pupils Equal, Pupils Reactive, Mucous Membr. Moist/[place] Neck: Supple, Trachea Midline, No JVD, No Thyromegaly Lungs: Clear to Auscultation, Normal Respiratory Effort. No: Crackles, Rales, Rhonchi, Rub, Stridor, Wheezing Cardiovascular: Regular Rate, Regular Rhythm GI/Abdominal Exam: Normal Bowel Sounds, Soft, Non-Tender, No Organomegaly, No Distention, No Abnormal Bruit, No Mass (Female) Exam: Deferred Back Exam: Normal Inspection, Full Range of Motion. No: CVA Tenderness (L), CVA Tenderness (R) Extremities: Normal Inspection, Normal Range of Motion, Non-Tender, No Pedal Edema, Normal Capillary Refill Skin: Dry, Intact. No: Ecchymosis Neurological: No New Focal Deficit Psy/Mental Status: Alert, Normal Affect, Normal Mood - Problem List & Annotations (1) Sepsis SNOMED Code(s): 64184932 Code(s): A41.9 - SEPSIS, UNSPECIFIED ORGANISM Status: Acute Priority: High Current Visit: Yes (2) Complicated UTI (urinary tract infection) SNOMED Code(s): 17115325 Code(s): N39.0 - URINARY TRACT INFECTION, SITE NOT SPECIFIED Status: Acute Priority: High Current Visit: Yes (3) Hyperkalemia SNOMED Code(s): 28045366 Code(s): E87.5 - HYPERKALEMIA Status: Acute Current Visit: Yes (4) Hypomagnesemia SNOMED Code(s): 951682256 Code(s): E83.42 - HYPOMAGNESEMIA Status: Acute Current Visit: Yes (5) Dehydration SNOMED Code(s): 38275100 Code(s): E86.0 - DEHYDRATION Status: Acute Priority: High Current Visit : Yes (6) History of COPD SNOMED Code(s): 739727264 Code(s): Z87.09 - PERSONAL HISTORY OF OTHER DISEASES OF THE RESPIRATORY SYSTEM Status: Chronic Current Visit: Yes (7) History of coronary artery disease SNOMED Code(s): 323577650 Code(s): Z86.79 - PERSONAL HISTORY OF OTHER DISEASES OF THE CIRCULATORY SYSTEM Status: Chronic Current Visit: Yes (8) Chronic back pain SNOMED Code(s): 555967326 Code(s): M54.9 - DORSALGIA, UNSPECIFIED; G89.29 - OTHER CHRONIC PAIN Status : Chronic Current Visit: Yes (9) HTN (hypertension) SNOMED Code(s): 07364797 Code(s): I10 - ESSENTIAL (PRIMARY) HYPERTENSION Status: Chronic Current Visit: Yes Qualifiers: Hypertension type: unspecified Qualified Code(s): I10 - Essential (primary ) hypertension (10) History of CVA (cerebrovascular accident) without residual deficits Status: Chronic Current Visit: Yes (11) Hyperglycemia SNOMED Code(s): 86562359 Code(s): R73.9 - HYPERGLYCEMIA, UNSPECIFIED Status: Chronic Current Visit : Yes - Problem List Review Problem List Initiated/Reviewed/Updated: Yes - My Orders Last 24 Hours: My Active Orders 03/05/17 11:01 Magnesium Oxide 500 mg PO BIDM 03/07/17 05:11 BASIC METABOLIC PANEL,BMP [CHEM] AM CBC WITH AUTO DIFF [HEME] AM MAGNESIUM [CHEM] AM - Assessment Assessment:: Impression 76-year-old female with the above past medical history presented with complicated UTI and sepsis, dehydration, hypokalemia, hypomagnesemia. Urine culture grew gram-negative rods Blood culture no growth for 1 day Plan: Patient received IV fluid of normal saline at 500 mL for total of 2 L, then start 1 L of normal saline at 100 m-L per hour -Continue Levaquin IV -Awaiting urine and blood cultures -continue her daily potassium chloride -Continue Magnesium oxide 500 mg bid -Continue her home medications -repeat labs in am -I and os every 6 hours -Daily weight -Physical therapy consult Lovenox for DVT prophylaxis Patient and daughter requested DNR for CODE STATUS - Plan Plan:: Impression 76-year-old female with the above past medical history presented with complicated UTI and sepsis, dehydration, hypokalemia, hypomagnesemia. Plan: Continue IV fluid of normal saline at 500 mL for total of 2 L, then start 1 L of normal saline at 100 m-L per hour -Levaquin IV -Awaiting urine and blood cultures -Add potassium chloride 40 mEq 1 time now and continue her daily potassium chloride -Magnesium oxide 500 mg once now -Continue her home medications -repeat labs in am -I and os every 6 hours -Daily weight Lovenox for DVT prophylaxis Patient and daughter requested DNR for CODE STATUS Plan of care was discussed with patient and daughter and to verbalize understanding agreed with
--- NOTE | 2017-03-06 11:21 | EKG ---
03/04/2017 - RK SANDY I reviewed the EKG and agree with the machine's reading. [facility] /[id number]
[2017-03-06] MEDS: traMADol 50 MG Tab PO PRN (14:10)
[2017-03-06] MEDS: Acetaminophen/HYDROcodone 325-10 MG Tab PO PRN (20:38)
[2017-03-06] MEDS: Zolpidem 5 MG Tab PO PRN (20:41)
[2017-03-06] MEDS: Amitriptyline 25 MG Tab PO SCH (20:41)
[2017-03-06] MEDS ORDERED: Levofloxacin/Dextrose 5%-Water 750 MG in Premix Bag 1 BAG IV SCH (21:00)
[2017-03-06] MEDS ORDERED: Sodium Chloride 0.9% 10 ML Syringe FLUSH PRN (22:58)
[2017-03-07] MEDS: Acetaminophen 325 MG Tab PO PRN (03:46)
[2017-03-07] MEDS: traMADol 50 MG Tab PO PRN (04:22)
[2017-03-07] MEDS: Acetaminophen/HYDROcodone 325-10 MG Tab PO PRN (05:52)
[2017-03-07] MEDS: Pantoprazole 40 MG Tab.CR PO SCH (05:52)
[2017-03-07 06:38] LABS: CHLORIDE,CL 106 mmol/L (101-111); SODIUM,NA 137 mmol/L (135-145)
--- NOTE | 2017-03-07 10:34 | PCM.DCSUM1 ---
Discharge Summary - Hospital Course Free Text/Narrative:: 76-year-old female with history of coronary artery disease status post stent, prediabetes, restless leg syndrome, tobacco abuse, insomnia, hypertension, CVA in 1999, COPD presented to the emergency room for not feeling well for 3 days. History was obtained from patient and daughter. Patient started feeling groggy with generalized weakness and having dry mouth and decreased urinary frequency. Her weakness got worse and felt cold and she was going for event in a car and she felt very weak that she couldn't get out of the car so she was brought to the emergency room. They deny unilateral weakness/numbness/tingling, facial drooping, difficulty swallowing, confusion, fever, nausea, vomiting, chest pain , shortness breath, wheezing, cough, upper respiratory symptoms, sore throat, abdominal pain, urinary frequency, dysuria, changes occur or the smell of the urine, lower extremities edema, any other symptoms or concerns. In emergency room patient heart rate was 91, respiratory rate 22, sats in the low 90s. CT head was unremarkable for acute findings. Laboratory data reported WBC 17.5 K. Potassium 3.2. Glucose 211. Magnesium 1.7. Creatinine 1. LFTs are unremarkable. Troponin and BNP are normal. Her UA was positive for nitrate, moderate occult blood, small leukocyte esterase, 5-10 RBC, more than 100 WBC, many bacteria. She was started on IV fluid of normal saline at 200 mL per hour. Blood and urine cultures were obtained and she was started on Levaquin 750 mg IV. She was admitted to the floor. Levaquin 750 mg every 48 hours was continued. Patient gradually was getting better. She did not have any fever, chills, nausea, vomiting, flank pain, or any acute events during hospitalization. Urine culture is positive for Escherichia coli and sensitive for Levaquin. Patient is discharged home today to continue a disease of Levaquin. Her magnesium was low at 1.6 and responded to oral magnesium oxidase. I sent her with prescription to continue magnesium oxidase. She was advised to follow-up with her primary care provider next week. Patient verbalized understanding agreed with the discharge planning - Discharge Data Discharge Date: 03/07/17 Discharge Disposition: Home, Self-Care 01 Condition: Good - Discharge Diagnosis/Problem(s) (1) Sepsis SNOMED Code(s): 32057607 ICD Code: A41.9 - SEPSIS, UNSPECIFIED ORGANISM Status: Resolved Priority : High Current Visit: Yes (2) Complicated UTI (urinary tract infection) SNOMED Code(s): 99708681 ICD Code: N39.0 - URINARY TRACT INFECTION, SITE NOT SPECIFIED Status: Acute Priority: High Current Visit: Yes (3) Hyperkalemia SNOMED Code(s): 23830533 ICD Code: E87.5 - HYPERKALEMIA Status: Resolved Current Visit: Yes (4) Hypomagnesemia SNOMED Code(s): 426556189 ICD Code: E83.42 - HYPOMAGNESEMIA Status: Acute Current Visit: Yes (5) Dehydration SNOMED Code(s): 74876857 ICD Code: E86.0 - DEHYDRATION Status: Resolved Priority: High Current Visit: Yes (6) History of COPD SNOMED Code(s): 568347955 ICD Code: Z87.09 - PERSONAL HISTORY OF OTHER DISEASES OF THE RESPIRATORY SYSTEM Status: Chronic Current Visit: Yes (7) History of coronary artery disease SNOMED Code(s): 171627171 ICD Code: Z86.79 - PERSONAL HISTORY OF OTHER DISEASES OF THE CIRCULATORY SYSTEM Status: Chronic Current Visit: Yes (8) Chronic back pain SNOMED Code(s): 371490138 ICD Code: M54.9 - DORSALGIA, UNSPECIFIED; G89.29 - OTHER CHRONIC PAIN Status: Chronic Current Visit: Yes (9) HTN (hypertension) SNOMED Code(s): 10863832 ICD Code: I10 - ESSENTIAL (PRIMARY) HYPERTENSION Status: Chronic Current Visit: Yes Qualifiers: Hypertension type: unspecified Qualified Code(s): I10 - Essential (primary ) hypertension (10) History of CVA (cerebrovascular accident) without residual deficits Status: Chronic Current Visit: Yes (11) Hyperglycemia SNOMED Code(s): 59627371 ICD Code: R73.9 - HYPERGLYCEMIA, UNSPECIFIED Status: Chronic Current Visit: Yes - Patient Instructions Diet: Heart Healthy Diet Activity: As Tolerated Showering/Bathing: May Shower Notify Provider of: Fever, Nausea and/or Vomiting - Discharge Plan Prescriptions/Med Rec: Levofloxacin [Levaquin] 750 mg PO Q48H 8 Days #4 tablet Magnesium Oxide 250 mg PO BIDM #30 tablet Home Medications: Home Meds Amitriptyline [Elavil] 50 mg PO BEDTIME 03/04/17 [History] Aspirin 81 mg PO DAILY 03/04/17 [History] Furosemide 1 tab PO DAILY 03/04/17 [History] Gabapentin [Neurontin] 300 mg PO BID 03/04/17 [History] Metoprolol Succinate [Toprol XL] 25 mg PO DAILY 03/04/17 [History] Morphine Sulfate [Morphine Sulfate ER] 15 mg PO DAILY PRN 03/04/17 [History] Pantoprazole [ProTONIX] 40 mg PO ACBREAKFAST 03/04/17 [History] Potassium Chloride [Klor-Con 10] 20 meq PO DAILY 03/04/17 [History] amLODIPine [Norvasc] 5 mg PO DAILY 03/04/17 [History] traMADol HCl [Tramadol HCl] 1 tab PO ASDIRECTED PRN 03/04/17 [History] Levofloxacin [Levaquin] 750 mg PO Q48H 8 Days #4 tablet 03/07/17 [Rx] Magnesium Oxide 250 mg PO BIDM #30 tablet 03/07/17 [Rx] Patient Handouts: Urinary Tract Infection, Adult - General Info Date of Service: 03/07/17 - Review of Systems General: Reports: No Symptoms HEENT: Reports: No Symptoms Pulmonary: Reports: No Symptoms Cardiovascular: Reports: No Symptoms Gastrointestinal: Reports: No Symptoms Genitourinary: Reports: No Symptoms Musculoskeletal: Reports: No Symptoms (Accept chronic pain) Skin: Reports: No Symptoms Neurological: Reports: No Symptoms Psychiatric: Reports: No Symptoms - Patient Data Vitals - Most Recent: Last Vital Signs Temp 37.1 C 03/07/17 07:00 Pulse 80 03/07/17 07:00 Resp 20 03/07/17 07:00 BP 126/63 03/07/17 07:00 Pulse Ox 95 03/07/17 07:00 Weight - Most Recent: 74.389 kg I&O - Last 24 hours: Intake & Output 03/06/17 03/07/17 03/07/17 22:59 06:59 14:59 Intake Total 1040 671 Output Total 1400 950 400 Balance -864 -675 -499 Lab Results - Last 24 hrs: Laboratory Results - last 24 hr 03/07/17 03/07/17 Range/Units 06:00 06:00 WBC 10.7 H (5.0-10.0) 10^3/uL RBC 4.54 (4.2-5.4) 10^6/uL Hgb 13.9 D (12.0-16.0) g/dL Hct 41.6 (37.0-47.0) % MCV 91.6 (80-100) fL MCH 30.6 (27.0-34.0) pg MCHC 33.4 (33.0-35.0) g/dL Plt Count 302 (150-450) 10^3/uL Neut % (Auto) 62.8 (42.2-75.2) % Lymph % (Auto) 19.4 L (20.5-50.1) % [place] % (Auto) 14.1 H (2-8) % Eos % (Auto) 3.4 H (1.0-3.0) % Baso % (Auto) 0.3 (0.0-1.0) % Sodium 137 (135-145) mmol/L Potassium 3.7 (3.6-5.0) mmol/L Chloride 106 (101-111) mmol/L Carbon Dioxide 23.0 (21.0-31.0) mmol/L Anion Gap 11.7 BUN 10 (7-18) mg/dL Creatinine 0.9 (0.6-1.3) mg/dL Est Cr Clr Drug Dosing 40.75 mL/min Estimated GFR (MDRD) > 60 Glucose 106 H (74-105) mg/dL Calcium 9.8 (8.4-10.2) mg/dl Magnesium 2.0 (1.8-2.5) mg/dL Med Orders - Current: Current Medications Acetaminophen (Tylenol) 650 mg PO Q4H PRN PRN Reason: Pain (Mild 1-3)/fever Last Admin: 03/07/17 03:46 Dose: 650 mg Hydrocodone Bitart/Acetaminophen ([place] 325-10 Mg) 0.5 tab PO Q4H PRN PRN Reason: Pain (moderate 4-6) Last Admin: 03/07/17 05:52 Dose: 0.5 tab Albuterol/Ipratropium (Duoneb 3.0-0.5 Mg/3 Ml) 3 ml NEB Q4H PRN PRN Reason: shortness of breath/wheezing Amitriptyline HCl (Elavil) 50 mg PO BEDTIME [facility] Last Admin: 03/06/17 20:41 Dose: 50 mg Amlodipine Besylate (Norvasc) 5 mg PO DAILY [facility] Last Admin: 03/06/17 09:50 Dose: 5 mg Aspirin (Aspirin) 81 mg PO DAILY [facility] Last Admin: 03/06/17 09:46 Dose: 81 mg Enoxaparin Sodium (Lovenox) 40 mg SUBCUT DAILY [facility] Last Admin: 03/06/17 09:46 Dose: 40 mg Furosemide (Lasix) 40 mg PO DAILY [facility] Last Admin: 03/06/17 09:47 Dose: 40 mg Gabapentin (Neurontin) 300 mg PO BID [facility] Last Admin: 03/06/17 20:42 Dose: 300 mg Levofloxacin/Dextrose 750 mg/ (Premix) 150 mls @ 100 mls/hr IV Q48H [facility] Last Admin: 03/06/17 22:04 Dose: 100 mls/hr Magnesium Hydroxide (Milk Of Magnesia) 30 ml PO Q12H PRN PRN Reason: Constipation Magnesium Oxide (Magnesium Oxide) 500 mg PO BIDM [facility] Last Admin: 03/06/17 17:43 Dose: 500 mg Metoprolol Succinate (Toprol Xl) 25 mg PO DAILY [facility] Last Admin: 03/06/17 09:51 Dose: 25 mg Morphine Sulfate (Ms Contin) 15 mg PO DAILY PRN PRN Reason: Pain Last Admin: 03/05/17 00:18 Dose: 15 mg Ondansetron HCl (Zofran) 4 mg IVPUSH Q6H PRN PRN Reason: Nausea/Vomiting Pantoprazole Sodium (Protonix) 40 mg PO ACBREAKFAST [facility] Last Admin: 03/07/17 05:52 Dose: 40 mg Polyethylene Glycol (Miralax) 17 gm PO DAILY PRN PRN Reason: Constipation Last Admin: 03/05/17 00:19 Dose: 17 gm Potassium Chloride (Klor-Con 10) 20 meq PO BID [facility] Last Admin: 03/06/17 20:42 Dose: 20 meq Sodium Chloride (Saline Flush) 10 ml FLUSH ASDIRECTED PRN PRN Reason: Keep Vein Open Tramadol HCl (Ultram) 50 mg PO Q6H PRN PRN Reason: Pain Last Admin: 03/07/17 04:22 Dose: 50 mg Zolpidem Tartrate (Ambien) 5 mg PO BEDTIME PRN PRN Reason: Sleep Last Admin: 03/06/17 20:41 Dose: 5 mg Discontinued Medications Sodium Chloride (Normal Saline) 1,000 mls @ 500 mls/hr IV .BOLUS ONE Stop: 03/04/17 23:59 Last Admin: 03/04/17 22:04 Dose: 200 mls/hr Levofloxacin/Dextrose 500 mg/ (Premix) 100 mls @ 100 mls/hr IV ONETIME ONE Stop: 03/04/17 23:24 Last Infusion: 03/05/17 13:20 Dose: Infused Sodium Chloride (Normal Saline) 1,000 mls @ 500 mls/hr IV ASDIRECTED [facility] Stop: 03/05/17 01:44 Last Admin: 03/05/17 01:21 Dose: 500 mls/hr Sodium Chloride (Normal Saline) 1,000 mls @ 100 mls/hr IV ASDIRECTED [facility] Stop: 03/05/17 09:44 Last Infusion: 03/05/17 13:20 Dose: Infused Magnesium Oxide (Magnesium Oxide) 500 mg PO ONETIME ONE Stop: 03/04/17 23:35 Last Admin: 03/05/17 00:17 Dose: 500 mg Potassium Chloride (Klor-Con 10) 40 meq PO ONETIME ONE Stop: 03/04/17 23:33 Last Admin: 03/05/17 00:14 Dose: 40 meq - Exam General: Reports: Alert, Oriented, Cooperative. Denies: No Acute Distress, Mild Distress, Moderate Distress, Severe Distress, Sedated, Lethargic, Obtunded HEENT: Reports: Pupils Equal, Pupils Reactive, EOMI, Mucous Membr. Moist/[place] Neck: Reports: Supple, Trachea Midline Lungs: Reports: Clear to Auscultation, Normal Respiratory Effort Cardiovascular: Reports: Regular Rate, Regular Rhythm GI/Abdominal Exam: Normal Bowel Sounds, Soft, Non-Tender, No Organomegaly, No Distention, No Abnormal Bruit, No Mass (Female) Exam: Deferred Rectal (Female) Exam: Deferred Back Exam: Reports: Normal Inspection, Full Range of Motion. Denies: CVA Tenderness (L), CVA Tenderness (R) Extremities: Normal Inspection, Normal Range of Motion, Non-Tender, No Pedal Edema, Normal Capillary Refill Skin: Reports: Warm, Dry, Intact Neurological: Reports: No New Focal Deficit Psy/Mental Status: Reports: Alert, Normal Affect, Normal Mood *Q Meaningful Use (DIS) - VTE *Q VTE Criteria *Q: - Stroke *Q Stroke Criteria *Q: - AMI *Q AMI Criteria *Q:
[2017-03-07] MEDS: Gabapentin 300 MG Cap PO SCH (10:44)
[2017-03-07] MEDS: Furosemide 40 MG Tab PO SCH (10:44)
[2017-03-07] MEDS: Morphine 15 MG Tab.ER PO PRN (10:45)
[2017-03-07] MEDS: Aspirin 81 MG Tab.Chew PO SCH (10:46)
[2017-03-07] MEDS: Potassium Chloride 10 MEQ Tab.ER PO SCH (10:46)
[2017-03-07] MEDS: Enoxaparin 40 MG/0.4 ML Syringe SUBCUT SCH (10:53)
[2017-03-07] MEDS: Metoprolol Succinate 25 MG Tab.ER PO SCH (11:09)
[2017-03-07] MEDS: amLODIPine 5 MG Tab PO SCH (11:10)
== END 2017-03-07 11:40 | disposition home or self-care (01) | DRG 872 ==
LOC: DL.ED 21:08 → UNDOADMIN 22:47 → DL.MS 22:47
PROVIDERS: ADMIT Family Medicine; ATTEND Family Medicine
DX: A41.9 Sepsis, unspecified organism (principal); N30.00 Acute cystitis without hematuria; R53.1 Weakness; B96.20 Unspecified Escherichia coli [E. coli] as the cause of diseases classified elsewhere; I10 Essential (primary) hypertension; E87.5 Hyperkalemia; E83.42 Hypomagnesemia; E86.0 Dehydration; J44.9 Chronic obstructive pulmonary disease, unspecified; I25.10 Atherosclerotic heart disease of native coronary artery without angina pectoris; Z95.5 Presence of coronary angioplasty implant and graft; M54.9 Dorsalgia, unspecified; R73.9 Hyperglycemia, unspecified; R42 Dizziness and giddiness; G25.81 Restless legs syndrome; Z86.73 Personal history of transient ischemic attack (TIA), and cerebral infarction without residual deficits; F17.200 Nicotine dependence, unspecified, uncomplicated; Z88.0 Allergy status to penicillin; Z88.8 Allergy status to other drugs, medicaments and biological substances; Z79.899 Other long term (current) drug therapy
CPT/HCPCS: 36415; 70450; 80053; 81001; 82009; 82962; 83605; 83735; 83880; 84484; 85025; 85610; 87040; 87086; 87088; 87186; 96365; 99285 ×2; J1956; J7030; 74000; 80048; 97161-GP; A9270-GY; J1650

== ENCOUNTER 2018-08-22 19:13 | Emergency (ER) | payer MEDICARE, OTHER ==
[2018-08-22] MEDS ORDERED: Azithromycin 250 MG Tab PO ONE (19:14)
[2018-08-22] MEDS ORDERED: Albuterol 0.083% 2.5 MG/3 ML Neb Soln INH ONE (19:14)
[2018-08-22] MEDS ORDERED: Aspirin 81 MG Tab.Chew PO ONE (19:20)
[2018-08-22] MEDS ORDERED: Albuterol 0.083% 2.5 MG/3 ML Neb Soln NEB ONE (19:20)
--- NOTE | 2018-08-22 19:23 | EDM.PDOC ---
ED HPI GENERAL MEDICAL PROBLEM - General Stated Complaint: HARD TIME BREATHING Time Seen by Provider: 08/22/18 19:15 Source of Information: Reports: Patient, RN History Limitations: Reports: No Limitations - History of Present Illness INITIAL COMMENTS - FREE TEXT/NARRATIVE: ED with c/o SOB since last night. Used neb last night and helped but not today. No cough fever or chills. Hx COPD. No change in swelling. Used inhaler today, Nebulizer medication . PCP in [place]. - Related Data Allergies Allergy/AdvReac Type Severity Reaction Status Date / Time Penicillins Allergy Hives Verified 08/22/18 19:18 [id number]-Vdb Reductase Allergy Muscle Verified 08/22/18 19:18 Inhibitor Aches Home Meds: Home Meds Amitriptyline [Elavil] 50 mg PO BEDTIME 03/04/17 [History] Aspirin 81 mg PO DAILY 03/04/17 [History] Furosemide 1 tab PO DAILY 03/04/17 [History] Gabapentin [Neurontin] 300 mg PO BID 03/04/17 [History] Metoprolol Succinate [Toprol XL] 25 mg PO DAILY 03/04/17 [History] Morphine Sulfate [Morphine Sulfate ER] 15 mg PO DAILY PRN 03/04/17 [History] Pantoprazole [ProTONIX] 40 mg PO ACBREAKFAST 03/04/17 [History] Potassium Chloride [Klor-Con 10] 20 meq PO DAILY 03/04/17 [History] amLODIPine [Norvasc] 5 mg PO DAILY 03/04/17 [History] traMADol HCl [Tramadol HCl] 1 tab PO ASDIRECTED PRN 03/04/17 [History] Levofloxacin [Levaquin] 750 mg PO Q48H 8 Days #4 tablet 03/07/17 [Rx] Magnesium Oxide 250 mg PO BIDM #30 tablet 03/07/17 [Rx] Past Medical History HEENT History: Reports: Cataract Cardiovascular History: Reports: [place] Other Cardiovascular History: 2 stents Respiratory History: Reports: COPD Gastrointestinal History: Reports: Cholelithiasis, GERD Genitourinary History: Reports: None 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: Neurological History: Reports: CVA Psychiatric History: Reports: None Endocrine/Metabolic History: Reports: None Hematologic History: Reports: None Immunologic History: Reports: None Oncologic (Cancer) History: Reports: None Dermatologic History: Reports: None - Infectious Disease History Infectious Disease History: Reports: Chicken Pox, Measles, Mumps, Pertussis ( Whooping Cough) - Past Surgical History Head Surgeries/Procedures: Reports: None HEENT Surgical History: Reports: Cataract Surgery Musculoskeletal Surgical History: Reports: Knee Replacement Social & Family History - Caffeine Use Caffeine Use: Reports: None ED ROS GENERAL - Review of Systems Review Of Systems: See Below Constitutional: Denies: Fever, Chills HEENT: Reports: No Symptoms Respiratory: Reports: Shortness of Breath, Cough (ocassional no productive). Denies: Wheezing, Pleuritic Chest Pain Cardiovascular: Reports: Edema (usual unchanged, worse at night, betterin am). Denies: Chest Pain, Lightheadedness GI/Abdominal: Reports: No Symptoms : Reports: Frequency (after taking lasix in am) Neurological: Reports: No Symptoms Psychiatric: Reports: No Symptoms ED EXAM, GENERAL - Physical Exam Exam: See Below Exam Limited By: No Limitations General Appearance: Alert, Mild Distress, Obese Eye Exam: Bilateral Eye: EOMI Ears: Normal External Exam, Normal TMs Nose: Normal Inspection Throat/Mouth: Normal Inspection Head: Atraumatic, Normocephalic Neck: Normal Inspection Respiratory/Chest: No Respiratory Distress, Decreased Breath Sounds. No: Respiratory Distress, Rales, Rhonchi Cardiovascular: Normal Peripheral Pulses, Regular Rate, Rhythm GI/Abdominal: Normal Bowel Sounds, No Mass Back Exam: Full Range of Motion Extremities: Pedal Edema (2) Neurological: Alert, Oriented, Normal Cognition, Normal Gait, No Motor/Sensory Deficits Psychiatric: Normal Affect, Normal Mood Skin Exam: Warm, Dry, Intact, Normal Color Course - Vital Signs Last Recorded V/S: Last Vital Signs Temp 98.7 F 08/22/18 19:18 Pulse 69 08/22/18 20:20 Resp 18 08/22/18 20:20 BP 167/64 H 08/22/18 20:20 Pulse Ox 90 L 08/22/18 20:20 - Orders/Labs/Meds Orders: Active Orders 24 hr Category Date Time Status EKG 12 Lead [EKG Documentation Completion] [RC] URGENT Care 08/22/18 19:20 Active RT Aerosol Therapy [RC] ASDIRECTED Care 08/22/18 19:21 Active Chest 1V Frontal [CR] Urgent Exams 08/22/18 19:20 Taken Labs: Laboratory Tests 08/22/18 08/22/18 08/22/18 Range/Units 19:35 19:35 19:35 WBC 11.6 H (5.0-10.0) 10^3/uL RBC 5.11 (4.2-5.4) 10^6/uL Hgb 15.6 D (12.0-16.0) g/dL Hct 46.5 (37.0-47.0) % MCV 91.0 (80-100) fL MCH 30.5 (27.0-34.0) pg MCHC 33.5 (33.0-35.0) g/dL Plt Count 286 (150-450) 10^3/uL Neut % (Auto) 52.3 (42.2-75.2) % Lymph % (Auto) 33.7 (20.5-50.1) % [place] % (Auto) 10.3 H (2-8) % Eos % (Auto) 3.4 H (1.0-3.0) % Baso % (Auto) 0.3 (0.0-1.0) % Sodium 139 (135-145) mmol/L Potassium 3.7 (3.6-5.0) mmol/L Chloride 108 (101-111) mmol/L Carbon Dioxide 21.0 (21.0-31.0) mmol/L Anion Gap 13.7 BUN 10 (7-18) mg/dL Creatinine 0.7 (0.6-1.3) mg/dL Est Cr Clr Drug Dosing 49.11 mL/min Estimated GFR (MDRD) > 60 BUN/Creatinine Ratio 14.28 Glucose 118 H (74-105) mg/dL Calcium 9.4 (8.4-10.2) mg/dl Magnesium 1.9 (1.8-2.5) mg/dL Total Bilirubin 0.3 (0.2-1.0) mg/dL AST 21 (10-42) IU/L ALT 23 (10-60) IU/L Alkaline Phosphatase 108 (42-121) IU/L CK-MB (CK-2) 2.10 (0.4-4.7) ng/mL Troponin I < 0.02 (0.00-0.02) ng/ml B-Natriuretic Peptide 130 H (0-100) pg/ml Total Protein 6.8 (6.7-8.2) g/dl Albumin 3.6 (3.2-5.5) g/dl Globulin 3.2 Albumin/Globulin Ratio 1.13 Amylase 37 (28-100) U/L Lipase 30 (22-51) U/L Meds: Medications Discontinued Medications Generic Name Dose Route Start Last Admin Trade Name Rajiq PRN Reason Stop Dose Admin Albuterol 2.5 mg 08/22/18 19:20 08/22/18 19:40 Proventil Neb Soln NEB 08/22/18 19:21 2.5 mg ONETIME ONE Administration Albuterol Confirm 08/22/18 20:41 08/22/18 21:02 Proventil Neb Soln Administered 08/22/18 20:42 Not Given Dose 2.5 mg .ROUTE .STK-MED ONE Aspirin 324 mg 08/22/18 19:20 08/22/18 19:33 Aspirin PO 08/22/18 19:21 324 mg ONETIME ONE Administration Azithromycin Confirm 08/22/18 20:41 08/22/18 21:02 Zithromax Administered 08/22/18 20:42 Not Given Dose 500 mg .ROUTE .STK-MED ONE - Radiology Interpretation Free Text/Narrative:: [facility] Final Radiology Report Call: [phone] assistance Online chat: [email or web address] Name: RK SANDY Age: 77Years F Date: 08/22/2018 SSN: -- : [id number] Study: XR CHEST 1 VIEW FRONTAL Requesting Physician: ACE HAMPTON Images: 1 Addl Studies: Provided Clinical History: Contrast: Contrast Medium: Contrast Amount: Contrast Method: CONFIDENTIALITY STATEMENT This report is intended only for use by the referring physician, and only in accordance with law. If you received this in error, call [phone]. Page 1 of 1 EXAM: XR Chest, 1 View EXAM DATE/TIME: 08/22/2018 7:28 PM CLINICAL HISTORY: 77 years old, female; Signs and symptoms; Shortness of breath TECHNIQUE: Imaging protocol: XR of the chest, 1 view. COMPARISON: CR CHEST PA/LAT 11/30/2008 7:01 PM FINDINGS: Lungs: Atelectatic and/or early infiltrative changes and within the lung bases. Pleural space: No large pleural effusions or pneumothorax. Heart/Mediastinum: Unremarkable. No cardiomegaly. Bones/joints: Unremarkable. Soft tissues: The vasculature demonstrates diffuse moderate atherosclerotic calcification. IMPRESSION: Atelectatic and/or early infiltrative changes and within the lung bases. Thank you for allowing us to participate in the care of your patient. Dictated and Authenticated by: Kael Velazquez DO 08/22/2018 8:18 PM Central Time ([place] & [place]) - Re-Assessments/Exams Free Text/Narrative Re-Assessment/Exam: 08/23/18 01:48 Reports breathing improved following neb with almost complete return to baseline Departure - Departure Time of Disposition: 20:34 Disposition: Home, Self-Care 01 Condition: Good Clinical Impression: COPD (chronic obstructive pulmonary disease) Qualifiers: COPD type: COPD with acute lower respiratory infection Qualified Code(s): J44.0 - Chronic obstructive pulmonary disease with acute lower respiratory infection - Discharge Information *PRESCRIPTION DRUG MONITORING PROGRAM REVIEWED*: No *COPY OF PRESCRIPTION DRUG MONITORING REPORT IN PATIENT BHARATHI: No Instructions: Chronic Obstructive Pulmonary Disease Exacerbation, [id number] Referrals: PCP,None [Primary Care Provider] - Forms: ED Department Discharge Additional Instructions: Clinic follow up later this week for recheck albuterol 2.5mg/3ml one every 4 hours as needed for SOB cough wheeze continue home medications azithromycin 500mg one tonight then 250mg daily x 4 urgent follow up symptoms worsen fever, chest pain productive cough. - My Orders Last 24 Hours: My Active Orders 08/22/18 19:20 EKG 12 Lead [EKG Documentation Completion] [RC] URGENT Chest 1V Frontal [CR] Urgent 08/22/18 19:21 RT Aerosol Therapy [RC] ASDIRECTED - Assessment/Plan Last 24 Hours: My Active Orders 08/22/18 19:20 EKG 12 Lead [EKG Documentation Completion] [RC] URGENT Chest 1V Frontal [CR] Urgent 08/22/18 19:21 RT Aerosol Therapy [RC] ASDIRECTED
[2018-08-22 20:03] LABS: ANION GAP 13.7; CHLORIDE,CL 108 mmol/L (101-111); SODIUM,NA 139 mmol/L (135-145)
[2018-08-22] MEDS ORDERED: Albuterol 0.083% 2.5 MG/3 ML Neb Soln ONE (20:41)
[2018-08-22] MEDS ORDERED: Azithromycin 250 MG Tab ONE (20:41)
== END 2018-08-22 20:55 | disposition home or self-care (01) ==
LOC: DL.ED 19:13
DX: J44.0 Chronic obstructive pulmonary disease with (acute) lower respiratory infection (principal); K21.9 Gastro-esophageal reflux disease without esophagitis; I25.2 Old myocardial infarction; Z79.899 Other long term (current) drug therapy; Z79.82 Long term (current) use of aspirin; Z88.0 Allergy status to penicillin; Z88.8 Allergy status to other drugs, medicaments and biological substances
CPT/HCPCS: 36415; 71045; 80053; 82150; 82553; 83690; 83735; 83880; 84484; 85025; 93005; 94640; 99285; A9270; J7613-GY

== ENCOUNTER 2019-03-02 13:36 | Inpatient (IN) | payer MEDICARE, OTHER ==
[2019-03-02] MEDS ORDERED: Albuterol/Ipratropium 3.0-0.5 MG/3 ML Neb Soln NEB ONE (14:02)
--- NOTE | 2019-03-02 14:10 | EDM.PDOC ---
ED HPI GENERAL MEDICAL PROBLEM - General Chief Complaint: Respiratory Problem Stated Complaint: TROUBLE BREATHING Time Seen by Provider: 03/02/19 13:55 Source of Information: Reports: Patient History Limitations: Reports: No Limitations - History of Present Illness INITIAL COMMENTS - FREE TEXT/NARRATIVE: This 78 yo female patient reports to the ED with increased shortness of breath. The patient reports she just returned to [place] from the [place] in [place]. The patient was diagnosed with Asthma today. The patient reports she was started on Advair, but she has not started the medications at this time. The patient reports her shortness of breath has been getting worse throughout the day today. Onset: Today Duration: Constant, Getting Worse Location: Reports: Chest Quality: Reports: Other Severity: Severe Improves with: Reports: None Worsens with: Reports: None Context: Reports: Other Associated Symptoms: Reports: No Other Symptoms - Related Data Allergies Allergy/AdvReac Type Severity Reaction Status Date / Time Penicillins Allergy Hives Verified 10/15/18 06:38 [id number]-Nti-Lzj Reductase Allergy Muscle Verified 10/15/18 06:38 Inhibitor Aches Home Meds: Home Meds Amitriptyline [Elavil] 50 mg PO BEDTIME 03/04/17 [History] Furosemide 20 mg PO BID 03/04/17 [History] Gabapentin [Neurontin] 300 mg PO BID 03/04/17 [History] Metoprolol Succinate [Toprol XL] 25 mg PO DAILY 03/04/17 [History] Morphine Sulfate [Morphine Sulfate ER] 15 mg PO DAILY PRN 03/04/17 [History] amLODIPine [Norvasc] 5 mg PO DAILY 03/04/17 [History] traMADol HCl [Tramadol HCl] 1 tab PO ASDIRECTED PRN 03/04/17 [History] Omeprazole Magnesium [Prilosec Otc] 20 mg PO DAILY 10/14/18 [History] Sennosides/Docusate Sodium [Senna Plus Tablet] 1 tab PO ASDIRECTED 10/14/18 [ History] Past Medical History HEENT History: Reports: Cataract Cardiovascular History: Reports: [place] Other Cardiovascular History: 2 stents Respiratory History: Reports: COPD Other Respiratory History: USES NEBULIZERS AND INHALER (INCRUSE) PRN. Gastrointestinal History: Reports: Cholelithiasis, GERD Other Gastrointestinal History: PATIENT DESCRIBES ONGOING ISSUES WITH DIFFICULTY SWALLOWING. 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 - Infectious Disease History Infectious Disease History: Reports: Chicken Pox, Measles, Mumps, Pertussis ( Whooping Cough) - Past Surgical History Head Surgeries/Procedures: Reports: None HEENT Surgical History: Reports: Cataract Surgery Other HEENT Surgeries/Procedures: bilateral cataract surgery Cardiovascular Surgical History: Reports: Coronary Artery Stent Respiratory Surgical History: Reports: None GI Surgical History: Reports: Appendectomy, Cholecystectomy, Colonoscopy Female Surgical History: Reports: Salpingo-Oophorectomy Other Female Surgeries/Procedures: 5 NVD Endocrine Surgical History: Reports: None Neurological Surgical History: Reports: None Musculoskeletal Surgical History: Reports: Knee Replacement Other Musculoskeletal Surgeries/Procedures:: bilaterally knee replacement Oncologic Surgical History: Reports: None Social & Family History - Family History Family Medical History: Noncontributory - Caffeine Use Caffeine Use: Reports: None ED ROS GENERAL - Review of Systems Review Of Systems: Comprehensive ROS is negative, except as noted in HPI. ED EXAM, GENERAL - Physical Exam Exam: See Below Exam Limited By: No Limitations General Appearance: Alert, WD/WN, Moderate Distress, Obese Eye Exam: Bilateral Eye: EOMI, Normal Inspection, PERRL Ears: Normal External Exam, Normal Canal, Hearing Grossly Normal, Normal TMs Nose: Normal Inspection, Normal Mucosa, No Blood Throat/Mouth: Normal Inspection, Normal Lips, Normal Teeth, Normal Gums, Normal Oropharynx, Normal Voice, No Airway Compromise Head: Atraumatic, Normocephalic Neck: Normal Inspection, Supple, Non-Tender, Full Range of Motion Respiratory/Chest: Decreased Breath Sounds (throughout) Cardiovascular: Normal Peripheral Pulses, Regular Rate, Rhythm, No Edema, No Gallop, No JVD, No Murmur, No Rub GI/Abdominal: Normal Bowel Sounds, Soft, Non-Tender, No Organomegaly, No Distention, No Abnormal Bruit, No Mass (Female) Exam: Deferred Rectal (Female) Exam: Deferred Back Exam: Normal Inspection, Full Range of Motion, NT Extremities: Normal Inspection, Normal Range of Motion, Non-Tender, Normal Capillary Refill, No Pedal Edema Neurological: Alert, Oriented, CN II-XII Intact, Normal Cognition, Normal Gait, Normal Reflexes, No Motor/Sensory Deficits Psychiatric: Normal Affect, Normal Mood Skin Exam: Warm, Dry, Intact, Normal Color, No Rash Lymphatic: No Adenopathy Course - Vital Signs Last Recorded V/S: Last Vital Signs Temp 37.0 C 03/02/19 13:59 Pulse 89 03/02/19 14:02 Resp 24 H 03/02/19 13:59 BP 155/93 H 03/02/19 13:59 Pulse Ox 90 L 03/02/19 14:02 - Orders/Labs/Meds Orders: Active Orders 24 hr Category Date Time Status EKG Documentation Completion [RC] URGENT Care 03/02/19 14:04 Active RT Aerosol Therapy [RC] ASDIRECTED Care 03/02/19 14:02 Active CULTURE BLOOD [BC] Stat Lab 03/02/19 14:07 Results D-DIMER QUANTITATIVE [COAG] Stat Lab 03/02/19 15:36 Ordered Labs: Laboratory Tests 03/02/19 03/02/19 03/02/19 Range/Units 14:07 14:07 14:07 WBC 8.2 (5.0-10.0) 10^3/uL RBC 4.61 (4.2-5.4) 10^6/uL Hgb 14.3 D (12.0-16.0) g/dL Hct 42.1 (37.0-47.0) % MCV 91.3 (80-100) fL MCH 31.0 (27.0-34.0) pg MCHC 34.0 (33.0-35.0) g/dL Plt Count 313 (150-450) 10^3/uL Neut % (Auto) 47.8 (42.2-75.2) % Lymph % (Auto) 34.2 (20.5-50.1) % [place] % (Auto) 10.7 H (2-8) % Eos % (Auto) 6.2 H (1.0-3.0) % Baso % (Auto) 1.1 H (0.0-1.0) % Sodium 139 (135-145) mmol/L Potassium 3.5 L (3.6-5.0) mmol/L Chloride 111 (101-111) mmol/L Carbon Dioxide 20.0 L (21.0-31.0) mmol/L Anion Gap 11.5 BUN 15 (7-18) mg/dL Creatinine 0.6 (0.6-1.3) mg/dL Est Cr Clr Drug Dosing 56.40 mL/min Estimated GFR (MDRD) > 60 BUN/Creatinine Ratio 25.00 Glucose 180 H (74-105) mg/dL Lactic Acid 1.9 (0.5-2.2) mmol/L Calcium 9.6 (8.4-10.2) mg/dl Total Bilirubin 0.5 (0.2-1.0) mg/dL AST 17 (10-42) IU/L ALT 12 (10-60) IU/L Alkaline Phosphatase 174 H (42-121) IU/L Troponin I < 0.02 (0.00-0.02) ng/ml B-Natriuretic Peptide 89 (0-100) pg/ml Total Protein 6.6 L (6.7-8.2) g/dl Albumin 3.7 (3.2-5.5) g/dl Globulin 2.9 Albumin/Globulin Ratio 1.28 Meds: Medications Discontinued Medications Generic Name Dose Route Start Last Admin Trade Name Freq PRN Reason Stop Dose Admin Albuterol/Ipratropium 3 ml 03/02/19 14:02 03/02/19 14:15 Duoneb 3.0-0.5 Mg/3 Ml NEB 03/02/19 14:03 3 ml ONETIME ONE Administration Methylprednisolone Sodium Succinate 125 mg 03/02/19 14:48 03/02/19 14:53 Solu-Medrol IVPUSH 03/02/19 14:49 125 mg ONETIME ONE Administration Departure - Departure Time of Disposition: 15:39 Disposition: Admitted As Inpatient 67 Condition: Fair Clinical Impression: Exacerbation of asthma Qualifiers: Asthma severity: severe Asthma persistence: persistent Qualified Code(s): J45.51 - Severe persistent asthma with (acute) exacerbation - Discharge Information *PRESCRIPTION DRUG MONITORING PROGRAM REVIEWED*: Not Applicable *COPY OF PRESCRIPTION DRUG MONITORING REPORT IN PATIENT BHARATHI: Not Applicable Forms: ED Department Discharge Care Plan Goals: Discussed the patient's history, examination, lab, EKG and x-ray results with Dr. Douglass. Dr. Douglass accepted the patient for continued evaluation and treatment as an inpatient at [facility]. Sepsis Event Note - Evaluation Sepsis Screening Result: No Definite Risk - Focused Exam Vital Signs: Vital Signs Temp Pulse Resp BP Pulse Ox Pulse Ox 03/02/19 14:02 89 90 L 03/02/19 13:59 37.0 C 72 24 H 155/93 H 85 L Date Exam was Performed: 03/02/19 Time Exam was Performed: 15:39 - My Orders Last 24 Hours: My Active Orders 03/02/19 14:02 RT Aerosol Therapy [RC] ASDIRECTED 03/02/19 14:04 EKG Documentation Completion [RC] URGENT 03/02/19 14:07 CULTURE BLOOD [BC] Stat 03/02/19 15:36 D-DIMER QUANTITATIVE [COAG] Stat - Assessment/Plan Last 24 Hours: My Active Orders 03/02/19 14:02 RT Aerosol Therapy [RC] ASDIRECTED 03/02/19 14:04 EKG Documentation Completion [RC] URGENT 03/02/19 14:07 CULTURE BLOOD [BC] Stat 03/02/19 15:36 D-DIMER QUANTITATIVE [COAG] Stat
[2019-03-02 14:36] LABS: ANION GAP 11.5; CHLORIDE,CL 111 mmol/L (101-111); SODIUM,NA 139 mmol/L (135-145)
[2019-03-02] MEDS ORDERED: methylPREDNISolone Sodium Succinate 125 MG/2 ML SDV IVPUSH ONE (14:48)
--- NOTE | 2019-03-02 15:09 | CR ---
EXAMINATION: Chest 2V SEX: Female AGE: 78 years CLINICAL HISTORY: 78-year-old female smoker with coronary artery disease now complaining short of breath (SOB). INTERPRETATION: 1. Chronic shaggy accentuation of the lung markings with some central peribronchial "cuffing" as noted on 08 November 2018 exam (small granuloma right costophrenic sulcus). Chronic mild air trapping suggesting COPD. 2. Ectasia thoracic aorta. 3. Normal cardiac silhouette without new signs of pulmonary vascular congestion, cephalization of flow, alveolar edema or dependent pleural effusion. 4. No new lung mass, hilar lymphadenopathy or focal lobar pneumonia. 5. No atelectasis/collapse. 6. No pneumothorax. No additional air trapping. CONCLUSION: No acute new cardiopulmonary abnormality. Comparison exam 08 November 2018.
[2019-03-02] MEDS ORDERED: Acetaminophen 325 MG Tab PO PRN (17:02)
[2019-03-02] MEDS ORDERED: traMADol 50 MG Tab PO PRN (17:05)
[2019-03-02] MEDS: Levofloxacin 500 MG Tab PO SCH (18:41)
[2019-03-02] MEDS: Furosemide 20 MG Tab PO SCH (19:32)
[2019-03-02] MEDS: Albuterol/Ipratropium 3.0-0.5 MG/3 ML Neb Soln NEB SCH (20:30)
[2019-03-02] MEDS: Gabapentin 300 MG Cap PO SCH (20:30)
[2019-03-02] MEDS ORDERED: Furosemide 20 MG Tab PO SCH (21:00)
[2019-03-02] MEDS ORDERED: Amitriptyline 25 MG Tab PO SCH (21:00)
--- NOTE | 2019-03-02 23:02 | HP ---
CHIEF COMPLAINT: Increasing shortness of breath. HISTORY OF PRESENTING ILLNESS: Ms. Melissa May is a 78-year-old female with a medical history significant for hypertension, hyperlipidemia, obesity, chronic history of tobacco use and continued use, degenerative disk disease, history of cerebrovascular accident in the past, coronary artery disease requiring stents placed in the past who has been doctoring with complaints of increasing shortness of breath since November and was also evaluated in the pulmonary clinic and had pulmonary function tests done which showed evidence of restrictive pattern and also decreased DLCO. The patient was just coming out of the pulmonary clinic and after coming to [facility] in [place], she started having increasingly shortness of breath. She took some inhalation treatments without any help, so came to the ER. While in the ER, patient was noted to be severely hypoxic with saturating down to 85% requiring nasal cannula oxygen and admission to the hospital for further evaluation. At this time, the patient claims that she has been short of breath for the last couple of months, but progressively getting worse. She grades the shortness of breath as 8 to 9 out of 10 in intensity this morning, which got relieved with rest and also nebulizer treatment and oxygen associated with some chest discomfort. Denies any nausea or vomiting. Complains of having cough with sputum which is chronic in nature. Denies any diarrhea but she had 1 episode of loose stools today. She denies any abdominal pain. She denies any ongoing chest pains for now. The patient denied any history of chest pains on exertion, but has dyspnea on exertion. No history of orthopnea or paroxysmal nocturnal dyspnea. The patient denied any history of hematemesis, hematochezia, or melenic stools. Normal bowel and bladder habits otherwise. REVIEW OF SYSTEMS: A complete review of systems including skin; ear, nose, and throat; cardiovascular system; respiratory system; gastrointestinal system; genitourinary system; hematology; oncology; neurology; allergy; immunology; and constitutional were well evaluated and were negative except for the above-said notes. PAST MEDICAL HISTORY: Significant for hypertension, hyperlipidemia, obesity, chronic tobacco use, degenerative disk disease, arthritis, restless legs syndrome, prediabetes. PAST SURGICAL HISTORY: Significant for upper endoscopy, total knee replacement, laparoscopic appendicectomy, hysterectomy, colonoscopy with polypectomy, cataract extraction and coronary angiogram with stent placement. FAMILY HISTORY: Significant for heart disease, cancer and diabetes in her mother; heart failure in her father; alcohol abuse and cirrhosis in her sister; Alzheimer's dementia in her brother and COPD in her brother. SOCIAL HISTORY: The patient has chronic history of tobacco use. She used to smoke 3 packs of cigarettes a day. Now currently she is smoking 1 pack per day. No history of alcohol intake. No history of drug use. ALLERGIES: Allergic History: The patient is noted to have allergies to penicillin and intolerance to statins. HOME MEDICATIONS: Include tramadol 1 tablet as needed, Norvasc 5 mg daily, Senna Plus 1 tablet as needed, omeprazole 20 mg daily, morphine 15 mg daily as needed, Toprol-XL 25 mg daily, Neurontin 300 mg twice a day, Lasix 20 mg twice a day, amitriptyline 50 mg at bedtime. PHYSICAL EXAMINATION: Vital Signs: Temperature of 98.3, pulse of 70, blood pressure of 149/71, respiratory rate of 26, saturating at 93% on 1 L of oxygen. General Appearance: The patient is well oriented to time, place, and person. Follows commands spontaneously. Cardiovascular System: S1, S2 heard with normal intensity. No gallops. Respiratory System: No wheeze. Mild crepitations at the base. Abdomen: Soft. Bowel sounds positive. Nontender. No rigidity. Extremities: Mild edema in bilateral lower extremities. Neurologic: No gross focal neurological deficits. LABORATORY DATA: WBC 8.2, hemoglobin 14.3, hematocrit 42.1, platelet count 313. Sodium 139, potassium 3.5, chloride 111, bicarb 20, BUN 15, creatinine 0.6, glucose 180, lactic acid 1.9. AST 17, ALT 12. Alkaline phosphatase 174. B- natriuretic peptide 89, troponin 0.02. ASSESSMENT: 1. Acute hypoxia. 2. Increasing shortness of breath. 3. Hypertension. 4. Hyperlipidemia. 5. Obesity. 6. Chronic tobacco use. PLAN: 1. Acute hypoxia: The patient noted to be with acute hypoxia. The patient recently underwent pulmonary function tests which showed evidence of restrictive disease. FEV1/FVC was around 78% of predictive value. She was noted to have decreased DLCO up to 58% and recent CT scan done showed evidence of emphysema. Unsure if patient has any emphysematous changes leading to hypoxia and shortness of breath. The patient will be admitted to the hospital. Chest x-ray did not show any acute infiltrate process. We will have her on nebulizer treatment. We will continue supplemental oxygen. We will use IV methylprednisone for now and we will closely follow. Unsure if patient has any acute asthma exacerbation at this juncture. She does not have any wheeze on physical exam, but the patient's family members claims that she had wheezing prior to coming to the hospital. 2. Hypokalemia, mild in nature. We will replace with oral potassium chloride. Recheck BMP in a.m. 3. Coronary artery disease. The patient recently underwent coronary angiogram back in November which did not show any acute lesion. Patent stents noted at that time. Continue with current treatment plan. 4. Hypertension. The patient's blood pressure seems to be well controlled. Continue with current antihypertensive medication. 5. Hyperlipidemia. The patient has intolerance to statin. She had tried multiple statins and had some same side effects, so she is not on any statin for now. 6. DVT prophylaxis. We will have her on Lovenox for DVT prophylaxis. 7. Code status. The patient wants to be DNR/DNI. Discussed with family members at bedside. Discussed with Rikki Forbes, ER staff regarding the plan of care. Reviewed the labs and medications. Reviewed the old charts. [facility] /[id number]
[2019-03-03] MEDS: Morphine 15 MG Tab.ER PO PRN ×2 (00:58→23:10)
[2019-03-03] MEDS: Omeprazole 20 MG Cap.CR PO SCH (05:44)
[2019-03-03 06:54] LABS: CHLORIDE,CL 106 mmol/L (101-111); SODIUM,NA 139 mmol/L (135-145)
[2019-03-03] MEDS: Albuterol/Ipratropium 3.0-0.5 MG/3 ML Neb Soln NEB SCH ×3 (07:24→20:58)
[2019-03-03] MEDS: predniSONE 20 MG Tab PO SCH (08:31)
[2019-03-03] MEDS: Gabapentin 300 MG Cap PO SCH ×2 (08:31→20:57)
[2019-03-03] MEDS: Furosemide 20 MG Tab PO SCH ×2 (08:31→13:56)
[2019-03-03] MEDS: Metoprolol Succinate 25 MG Tab.ER PO SCH (08:32)
[2019-03-03] MEDS: Amitriptyline 25 MG Tab PO SCH (08:33)
[2019-03-03] MEDS: amLODIPine 5 MG Tab PO SCH (08:33)
[2019-03-03] MEDS: Enoxaparin 40 MG/0.4 ML Syringe SUBCUT SCH (08:34)
--- NOTE | 2019-03-03 12:23 | PN ---
DATE: 03/03/2019 SUBJECTIVE: Mrs. Melissa May is a 78-year-old female with medical history significant for hypertension, hyperlipidemia, obesity, recently diagnosed with asthma with decreased DLCO. Admitted to the hospital with acute respiratory failure with hypoxia. Saturations down to 85% at the time of admission. For the last 24 hours, the patient continues to be requiring oxygen. She is on 1.5 L of nasal cannula oxygen. Her shortness of breath seems to be improved after starting her on treatment with prednisone and nebulizer treatment. She denies any chest pain. No abdominal pain. No nausea. No vomiting. No diarrhea. REVIEW OF SYSTEMS: Cardiovascular, respiratory, gastrointestinal, neurology, and constitutional were all evaluated. OBJECTIVE: Vital Signs: Temperature of 97.4, pulse of 86, blood pressure of 143/68, respiratory rate of 20, and saturating at 92% on 1 L of oxygen. General Appearance: The patient is alert and oriented to time, place, and person. Follows commands spontaneously. Cardiovascular System: S1, S2 heard with normal intensity. No gallops. Respiratory System: No wheeze. No crepitations. Abdomen: Soft. Bowel sounds positive. Nontender. No rigidity. Extremities: No edema of bilateral lower extremities. MEDICATIONS: Reviewed. Continue DuoNeb 3 times a day, Elavil 50 mg daily, Norvasc 5 mg daily, Lovenox 40 mg subcutaneous daily, Lasix 20 mg twice a day, Neurontin 300 mg twice a day, Levaquin 500 mg daily, Toprol-XL 25 mg daily, MS Contin 15 mg daily as needed for pain, prednisone 20 mg daily, and Ultram 50 mg every 8 hours as needed for pain. LABORATORY DATA: Reviewed. WBC 12.5, hemoglobin 14.3, hematocrit 42.6, and platelet count 320. Sodium 139, potassium 4, chloride 106, bicarb 22, BUN 16, creatinine 0.8, and calcium 10.1. ASSESSMENT: 1. Possible acute asthma exacerbation. 2. Acute hypoxic respiratory failure. 3. Hypokalemia. 4. Coronary artery disease. 5. Hypertension. 6. Hyperlipidemia. 7. Obesity. PLAN: 1. Acute hypoxic respiratory failure. The patient was noted to be hypoxic with increasing shortness of breath at the time of admission. She is requiring 1 L of oxygen at this time. We will gradually wean down the oxygen. The patient might benefit from walking desaturation study on the day of discharge. We will closely follow. 2. Possible acute asthma exacerbation. The patient recently underwent pulmonary function test, which showed evidence of obstructive airway disease. The patient is currently on prednisone and antibiotics, we will continue the same. Continue the nebulizer treatment. 3. Possible bronchitis. The patient was complaining of cough with sputum at the time of admission. Empirically started on Levaquin, which seems to be improving her symptoms. Continue the same. 4. Hypertension. The patient's blood pressure seems to be in acceptable range. Continue with current antihypertensive medication with lisinopril. 5. Chronic tobacco use. The patient is educated about tobacco cessation and strongly encouraged her to quit smoking. Offered nicotine transdermal patch. 6. Hypokalemia, mild in nature, improved today, potassium back to normal. [facility] /[id number]
[2019-03-03] MEDS: Levofloxacin 500 MG Tab PO SCH (17:56)
[2019-03-04] MEDS: Omeprazole 20 MG Cap.CR PO SCH (06:07)
[2019-03-04] MEDS: Albuterol/Ipratropium 3.0-0.5 MG/3 ML Neb Soln NEB SCH ×2 (08:50→14:48)
[2019-03-04] MEDS: predniSONE 20 MG Tab PO SCH (08:51)
[2019-03-04] MEDS: Furosemide 20 MG Tab PO SCH ×2 (08:51→14:00)
[2019-03-04] MEDS: Amitriptyline 25 MG Tab PO SCH (08:52)
[2019-03-04] MEDS: amLODIPine 5 MG Tab PO SCH (08:53)
[2019-03-04] MEDS: Gabapentin 300 MG Cap PO SCH (08:53)
[2019-03-04] MEDS: Enoxaparin 40 MG/0.4 ML Syringe SUBCUT SCH (08:53)
[2019-03-04] MEDS: Metoprolol Succinate 25 MG Tab.ER PO SCH (08:54)
[2019-03-04] MEDS ORDERED: Gabapentin 300 MG Cap PO SCH (14:00)
--- NOTE | 2019-03-04 14:13 | DISCH ---
ADMITTING DIAGNOSES: 1. Acute asthma exacerbation. 2. Acute hypoxic respiratory failure. 3. Hypokalemia. DISCHARGE DIAGNOSES: 1. Acute asthma exacerbation, improved. 2. Acute hypoxic respiratory failure, improved. The patient is requiring 3 L of nasal cannula oxygen on activity. 3. Hypokalemia, improved. HISTORY OF PRESENTING ILLNESS: Ms. Melissa May is a 78-year-old female with a medical history significant for hypertension, hyperlipidemia, obesity, chronic history of tobacco use and continues, degenerative disk disease, cerebrovascular accident in the past, coronary artery disease requiring stents placed in the past. Recently underwent pulmonary function tests and had a methacholine challenge test. On her way to her home, she got increasingly short of breath and was presented to the ER. While in the ER, the patient was noted to be in acute hypoxic respiratory failure with saturation down to 84% and was increasingly short of breath, so was admitted to the hospital with possible asthma exacerbation versus exacerbation from methacholine challenge test. The patient was started on steroids with prednisone and nebulizer treatment. She was complaining of cough with sputum. Unsure if the patient had any bronchitis, but imaging study did not show any evidence of pneumonia. She was started on empirical antibiotic which has improved her symptoms. The patient was able to saturate well at 91% on room air at rest. but on exertion she is requiring around 3 L of nasal cannula oxygen to maintain 93% saturation with activity. She was desaturating down to 84% on exertion with activity. She will be going home on home oxygen. The patient has chronic tobacco use. The patient was educated about tobacco cessation. Strongly encouraged her to quit smoking. She was also explained about complications with burning and explosions if she continues to smoke while on oxygen which she understands and is willing to quit smoking at this time. She is discharged home in stable condition. She will continue with the prednisone and Levaquin for next 5 days. She is advised to follow with her primary care physician in next 1 week of time. She is advised to follow with Pulmonary Clinic as scheduled. She is discharged home in stable condition. DISCHARGE MEDICATIONS: Tylenol Extra Strength 1000 mg every 6 hours, albuterol 2 puffs inhalation every 4 hours as needed for wheezing, amitriptyline 50 mg daily, aspirin 81 mg daily, Celecoxib 200 mg daily, Lasix 20 mg twice a day, Neurontin 300 mg 3 times daily, ipratropium albuterol inhalation every 4 hours as needed, Toprol-XL 25 mg daily, Protonix 40 mg daily, Norvasc 5 mg daily, Levaquin 500 mg daily for 5 days, prednisone 20 mg daily for 5 days, tramadol 50 mg every 8 hours as needed for pain. PHYSICAL EXAMINATION: Vital Signs: Temperature of 98.3, pulse of 72, blood pressure 134/59, respiratory rate of 20, saturating at 91%. General Appearance: The patient is well oriented to time, place, and person. Follows commands spontaneously. Cardiovascular: S1 and S2 heard with normal intensity. No gallops. Respiratory: Clear to auscultation bilaterally. No wheeze. No crepitations. Abdomen: Soft. Bowel sounds positive. Nontender. No rigidity. Extremities: No edema in bilateral lower extremities. CONDITION ON ADMISSION: Poor. CONDITION ON DISCHARGE: Stable. DISPOSITION: Discharged to home. ACTIVITY: As tolerated. DIET: Cardiac healthy diet. FOLLOWUP: Follow with primary care physician in next 1 week of time and to follow with Pulmonary Clinic as scheduled. [facility] /[id number] MTDD
== END 2019-03-04 17:00 | disposition home or self-care (01) | DRG 189 ==
LOC: DL.ED 13:36 → DL.MS 15:57
PROVIDERS: ADMIT Internal Medicine; ATTEND Internal Medicine
DX: J45.51 Severe persistent asthma with (acute) exacerbation (principal); J96.01 Acute respiratory failure with hypoxia; J45.901 Unspecified asthma with (acute) exacerbation; J44.9 Chronic obstructive pulmonary disease, unspecified; Z68.41 Body mass index [BMI] 40.0-44.9, adult; E87.6 Hypokalemia; L40.9 Psoriasis, unspecified; I10 Essential (primary) hypertension; Z96.653 Presence of artificial knee joint, bilateral; E78.5 Hyperlipidemia, unspecified; E66.9 Obesity, unspecified; Z66 Do not resuscitate; I25.10 Atherosclerotic heart disease of native coronary artery without angina pectoris; M19.90 Unspecified osteoarthritis, unspecified site; G25.81 Restless legs syndrome; I25.2 Old myocardial infarction; K21.9 Gastro-esophageal reflux disease without esophagitis; F17.210 Nicotine dependence, cigarettes, uncomplicated; R73.03 Prediabetes; Z96.659 Presence of unspecified artificial knee joint; Z90.49 Acquired absence of other specified parts of digestive tract; Z99.81 Dependence on supplemental oxygen; Z90.710 Acquired absence of both cervix and uterus; Z86.73 Personal history of transient ischemic attack (TIA), and cerebral infarction without residual deficits; Z95.5 Presence of coronary angioplasty implant and graft; Z88.0 Allergy status to penicillin; Z88.8 Allergy status to other drugs, medicaments and biological substances; Z79.899 Other long term (current) drug therapy; Z98.41 Cataract extraction status, right eye; Z98.42 Cataract extraction status, left eye
CPT/HCPCS: 36415; 71046; 80053; 83605; 83880; 84484; 85025; 85379; 87040; 93005; 94640; 96374; 99285; J2930; 80048; 83735; 85027; 94010; 94618; 94667; A9270-GY; J1650; J7620-GY

== ENCOUNTER 2019-03-13 12:25 | Emergency (ER) | payer MEDICARE, OTHER ==
[2019-03-13 13:33] LABS: ANION GAP 10.1; CHLORIDE,CL 104 mmol/L (101-111); SODIUM,NA 137 mmol/L (135-145)
--- NOTE | 2019-03-13 14:39 | EDM.PDOC ---
Scribed by Lesly Rosenberg 03/13/19 [id number] for Rikki Forbes PA ED HPI GENERAL MEDICAL PROBLEM - General Chief Complaint: Respiratory Problem Stated Complaint: PROBLEMS BREATHING Time Seen by Provider: 03/13/19 13:15 Source of Information: Reports: Patient, RN, RN Notes Reviewed History Limitations: Reports: No Limitations - History of Present Illness INITIAL COMMENTS - FREE TEXT/NARRATIVE: Patient is a 78-year-old patient with increased shortness of breath today. She had dizziness today as well. She just got out of the hospital last week. Patient was on Levaquin until Thursday. The patient has been using Albuterol inhaler and Advair as directed. Onset: Today Duration: Getting Worse Location: Reports: Chest Quality: Reports: Ache Severity: Moderate Improves with: Reports: None Worsens with: Reports: None Associated Symptoms: Reports: No Other Symptoms - Related Data Allergies Allergy/AdvReac Type Severity Reaction Status Date / Time Penicillins Allergy Hives Verified 03/13/19 12:44 Htmzmuu-Lil-Zyv Reductase Allergy Muscle Verified 03/13/19 12:44 Inhibitor Aches Home Meds: Home Meds Furosemide 20 mg PO BID 03/04/17 [History] Gabapentin [Neurontin] 300 mg PO TID 03/04/17 [History] Metoprolol Succinate [Toprol XL] 25 mg PO DAILY 03/04/17 [History] amLODIPine [Norvasc] 5 mg PO DAILY 03/04/17 [History] traMADol HCl [Tramadol HCl] 50 mg PO Q8HR PRN 03/04/17 [History] Acetaminophen [Acetaminophen Extra Strength] 1,000 mg PO Q6HR 03/02/19 [History] Albuterol Sulfate [Albuterol Sulfate Hfa] 2 puff INH Q4H PRN 03/02/19 [History] Amitriptyline [Elavil] 50 mg PO DAILY 03/02/19 [History] Aspirin [Ecotrin EC] 81 mg PO DAILY 03/02/19 [History] Celecoxib 200 mg PO DAILY 03/02/19 [History] Ipratropium/Albuterol Sulfate [Iprat-Albut 0.5-3(2.5) MG/3 ML] 3 ml NEB Q4H PRN 03/02/19 [History] Non-Formulary Medication [NF Drug] 2 puff INH BID 03/02/19 [History] Pantoprazole Sodium [Protonix] 40 mg PO DAILY 03/02/19 [History] levoFLOXacin [Levaquin] 500 mg PO Q24H 5 Days #5 tablet 03/04/19 [Rx] predniSONE 20 mg PO WITHBREAKFAST 5 Days #5 tablet 03/04/19 [Rx] Past Medical History HEENT History: Reports: Cataract Cardiovascular History: Reports: [place] Other Cardiovascular History: 2 stents Respiratory History: Reports: Asthma, COPD Other Respiratory History: USES NEBULIZERS AND INHALER (INCRUSE) PRN. Gastrointestinal History: Reports: Cholelithiasis, GERD Other Gastrointestinal History: reflux causes difficulty swallowing Genitourinary History: Reports: UTI, Recurrent CONTACT [employer]SEM[employer]ER History: Reports: Musculoskeletal History: Reports: Osteoarthritis Other Musculoskeletal History: bilaterally knee arthroplasty Neurological History: Reports: CVA Psychiatric History: Reports: None Endocrine/Metabolic History: Reports: None Hematologic History: Reports: None Immunologic History: Reports: None Oncologic (Cancer) History: Reports: None Dermatologic History: Reports: Other (See Below) Other Dermatologic History: STATES SHE HAS PSORIASIS ON HER SCALP. - Infectious Disease History Infectious Disease History: Reports: Chicken Pox, Measles, Mumps, Pertussis ( Whooping Cough) - Past Surgical History Head Surgeries/Procedures: Reports: None HEENT Surgical History: Reports: Cataract Surgery Other HEENT Surgeries/Procedures: bilateral cataract surgery Cardiovascular Surgical History: Reports: Coronary Artery Stent Respiratory Surgical History: Reports: None GI Surgical History: Reports: Appendectomy, Cholecystectomy, Colonoscopy Female Surgical History: Reports: Salpingo-Oophorectomy Other Female Surgeries/Procedures: 5 NVD Endocrine Surgical History: Reports: None Neurological Surgical History: Reports: None Musculoskeletal Surgical History: Reports: Knee Replacement Other Musculoskeletal Surgeries/Procedures:: bilaterally knee replacement Oncologic Surgical History: Reports: None Social & Family History - Family History Family Medical History: Noncontributory - Tobacco Use Smoking Status *Q: Current Every Day Smoker Years of Tobacco use: 45 Packs/Tins Daily: 0.2 - Caffeine Use Caffeine Use: Reports: Coffee Caffeine Use Comment: tea & diet coke - Recreational Drug Use Recreational Drug Use: No ED ROS GENERAL - Review of Systems Review Of Systems: Comprehensive ROS is negative, except as noted in HPI. ED EXAM, GENERAL - Physical Exam Exam: See Below Exam Limited By: No Limitations General Appearance: Alert, WD/WN, No Apparent Distress Eye Exam: Bilateral Eye: EOMI, Normal Inspection, PERRL Ears: Normal External Exam, Normal Canal, Hearing Grossly Normal, Normal TMs Nose: Other (sinus tenderness and drainage) Throat/Mouth: Other (dry mouth) Head: Atraumatic, Normocephalic Neck: Normal Inspection, Supple, Non-Tender, Full Range of Motion Respiratory/Chest: No Respiratory Distress, Lungs Clear, Normal Breath Sounds, No Accessory Muscle Use, Chest Non-Tender Cardiovascular: Normal Peripheral Pulses, Regular Rate, Rhythm, No Edema, No Gallop, No JVD, No Murmur, No Rub GI/Abdominal: Normal Bowel Sounds, Soft, Non-Tender, No Organomegaly, No Distention, No Abnormal Bruit, No Mass (Female) Exam: Deferred Rectal (Female) Exam: Deferred Back Exam: Normal Inspection, Full Range of Motion, NT Extremities: Normal Inspection, Normal Range of Motion, Non-Tender, Normal Capillary Refill, No Pedal Edema Neurological: Alert, Oriented, CN II-XII Intact, Normal Cognition, Normal Gait, Normal Reflexes, No Motor/Sensory Deficits Psychiatric: Normal Affect, Normal Mood Skin Exam: Warm, Dry, Intact, Normal Color, No Rash Lymphatic: No Adenopathy Course - Vital Signs Last Recorded V/S: Last Vital Signs Temp 36.4 C 03/13/19 12:44 Pulse 78 03/13/19 12:44 Resp 20 03/13/19 12:44 BP 178/70 H 03/13/19 12:44 Pulse Ox 90 L 03/13/19 12:44 - Orders/Labs/Meds Orders: Active Orders 24 hr Category Date Time Status EKG Documentation Completion [RC] URGENT Care 03/13/19 12:51 Active CULTURE URINE [RM] Urgent Lab 03/13/19 12:56 Received Labs: Laboratory Tests 03/13/19 03/13/19 03/13/19 Range/Units 12:56 13:02 13:02 WBC 10.9 H (5.0-10.0) 10^3/uL RBC 4.88 (4.2-5.4) 10^6/uL Hgb 15.1 (12.0-16.0) g/dL Hct 44.8 (37.0-47.0) % MCV 91.8 (80-100) fL MCH 30.9 (27.0-34.0) pg MCHC 33.7 (33.0-35.0) g/dL Plt Count 314 (150-450) 10^3/uL Neut % (Auto) 52.1 (42.2-75.2) % Lymph % (Auto) 28.4 (20.5-50.1) % [place] % (Auto) 12.0 H (2-8) % Eos % (Auto) 6.5 H (1.0-3.0) % Baso % (Auto) 1.0 (0.0-1.0) % D-Dimer, Quantitative (0-400) ng/mL Sodium 137 (135-145) mmol/L Potassium 3.1 L (3.6-5.0) mmol/L Chloride 104 (101-111) mmol/L Carbon Dioxide 26.0 (21.0-31.0) mmol/L Anion Gap 10.1 BUN 9 (7-18) mg/dL Creatinine 0.9 (0.6-1.3) mg/dL Est Cr Clr Drug Dosing 41.40 mL/min Estimated GFR (MDRD) > 60 BUN/Creatinine Ratio 10.00 Glucose 153 H (74-105) mg/dL Calcium 9.3 (8.4-10.2) mg/dl Total Bilirubin 0.6 (0.2-1.0) mg/dL AST 16 (10-42) IU/L ALT 15 (10-60) IU/L Alkaline Phosphatase 139 H (42-121) IU/L Troponin I < 0.02 (0.00-0.02) ng/ml Total Protein 6.8 (6.7-8.2) g/dl Albumin 3.8 (3.2-5.5) g/dl Globulin 3.0 Albumin/Globulin Ratio 1.27 Urine Color Yellow (YELLOW) Urine Appearance Clear (CLEAR) Urine pH 7.0 (5.0-9.0) Ur Specific [place] 1.010 (1.005-1.030) Urine Protein Negative (NEGATIVE) Urine Glucose (UA) 500 H (NEGATIVE) Urine Ketones Negative (NEGATIVE) Urine Occult Blood Negative (NEGATIVE) Urine Nitrite Negative (NEGATIVE) Urine Bilirubin Negative (NEGATIVE) Urine Urobilinogen 0.2 (0.2-1.0) mg/dL Ur Leukocyte Esterase Trace H (NEGATIVE) Urine RBC Not seen /HPF Urine WBC Not seen (0-5/HPF) /HPF Ur Epithelial Cells Rare (NOT SEEN) /HPF Urine Bacteria Rare (0-FEW/HPF) /HPF Urine Mucus Not seen (NOT SEEN) /LPF 03/13/19 Range/Units 13:02 WBC (5.0-10.0) 10^3/uL RBC (4.2-5.4) 10^6/uL Hgb (12.0-16.0) g/dL Hct (37.0-47.0) % MCV (80-100) fL MCH (27.0-34.0) pg MCHC (33.0-35.0) g/dL Plt Count (150-450) 10^3/uL Neut % (Auto) (42.2-75.2) % Lymph % (Auto) (20.5-50.1) % [place] % (Auto) (2-8) % Eos % (Auto) (1.0-3.0) % Baso % (Auto) (0.0-1.0) % D-Dimer, Quantitative 287 (0-400) ng/mL Sodium (135-145) mmol/L Potassium (3.6-5.0) mmol/L Chloride (101-111) mmol/L Carbon Dioxide (21.0-31.0) mmol/L Anion Gap BUN (7-18) mg/dL Creatinine (0.6-1.3) mg/dL Est Cr Clr Drug Dosing mL/min Estimated GFR (MDRD) BUN/Creatinine Ratio Glucose (74-105) mg/dL Calcium (8.4-10.2) mg/dl Total Bilirubin (0.2-1.0) mg/dL AST (10-42) IU/L ALT (10-60) IU/L Alkaline Phosphatase (42-121) IU/L Troponin I (0.00-0.02) ng/ml Total Protein (6.7-8.2) g/dl Albumin (3.2-5.5) g/dl Globulin Albumin/Globulin Ratio Urine Color (YELLOW) Urine Appearance (CLEAR) Urine pH (5.0-9.0) Ur Specific [place] (1.005-1.030) Urine Protein (NEGATIVE) Urine Glucose (UA) (NEGATIVE) Urine Ketones (NEGATIVE) Urine Occult Blood (NEGATIVE) Urine Nitrite (NEGATIVE) Urine Bilirubin (NEGATIVE) Urine Urobilinogen (0.2-1.0) mg/dL Ur Leukocyte Esterase (NEGATIVE) Urine RBC /HPF Urine WBC (0-5/HPF) /HPF Ur Epithelial Cells (NOT SEEN) /HPF Urine Bacteria (0-FEW/HPF) /HPF Urine Mucus (NOT SEEN) /LPF Meds: Medications Discontinued Medications Generic Name Dose Route Start Last Admin Trade Name Fretanner PRN Reason Stop Dose Admin Cephalexin 500 mg 03/13/19 14:33 Keflex PO 03/13/19 14:34 ONETIME ONE Departure - Departure Time of Disposition: 14:36 Disposition: Home, Self-Care 01 Condition: Fair Clinical Impression: Sinusitis, acute maxillary Qualifiers: Recurrence: non-recurrent Qualified Code(s): J01.00 - Acute maxillary sinusitis , unspecified - Discharge Information *PRESCRIPTION DRUG MONITORING PROGRAM REVIEWED*: Not Applicable *COPY OF PRESCRIPTION DRUG MONITORING REPORT IN PATIENT BHARATHI: Not Applicable Instructions: Sinusitis, Adult, [id number] Forms: ED Department Discharge Care Plan Goals: The patient was advised of the examination and lab results during the visit. The patient was given an oral dose of Keflex (500 mg) while in the ED. The patient was discharged with a script for Keflex (500 mg) #30 to take 1 by mouth 3 times per day for 10 days. The patient was encouraged to increase her oral fluid intake. If the patient has any additional symptoms or concerns, the patient should either return to the emergency department or visit her primary care facility. Sepsis Event Note - Evaluation Sepsis Screening Result: No Definite Risk - Focused Exam Vital Signs: Vital Signs Temp Pulse Resp BP Pulse Ox 03/13/19 12:44 36.4 C 78 20 178/70 H 90 L Date Exam was Performed: 03/13/19 Time Exam was Performed: 14:35 - My Orders Last 24 Hours: My Active Orders 03/13/19 12:51 EKG Documentation Completion [RC] URGENT 03/13/19 12:56 CULTURE URINE [RM] Urgent - Assessment/Plan Last 24 Hours: My Active Orders 03/13/19 12:51 EKG Documentation Completion [RC] URGENT 03/13/19 12:56 CULTURE URINE [RM] Urgent I have read and agree with the documentation that has been completed regarding this visit. By signing this record, I attest that the documentation was completed in my physical presence and is an accurate record of the encounter.
[2019-03-13] MEDS: Cephalexin 500 MG Cap PO ONE (14:40)
== END 2019-03-13 14:42 | disposition home or self-care (01) ==
LOC: DL.ED 12:25
DX: J01.00 Acute maxillary sinusitis, unspecified (principal)
CPT/HCPCS: 36415; 71046; 80053; 81001; 84484; 85025; 85379; 87086; 93005; 99285; A9270

== ENCOUNTER 2019-04-06 11:46 | Emergency (ER) | payer MEDICARE, OTHER ==
[2019-04-06] MEDS ORDERED: Ketorolac 30 MG/ML SDV IVPUSH ONE (12:39)
--- NOTE | 2019-04-06 12:44 | EDM.PDOC ---
ED HPI GENERAL MEDICAL PROBLEM - General Chief Complaint: Back Pain or Injury Stated Complaint: AMBULANCE Time Seen by Provider: 04/06/19 12:35 Source of Information: Reports: Patient History Limitations: Reports: No Limitations - History of Present Illness INITIAL COMMENTS - FREE TEXT/NARRATIVE: This 78 yo female patient was brought to the ED by [facility] due to lower back pain that radiates into her right hip and right leg. The patient reports she was moving several pieces of furniture on Thursday and has been experiencing increased pain since that time. The patient reports she took Tramadol this morning with no symptom improvement. The patient reports she has several disks in her lower back that are bad. The patient reports she has never had this much pain in her lower back before. Onset Date: 04/01/19 Duration: Constant, Getting Worse Location: Reports: Back, Lower Extremity, Right Quality: Reports: Other Severity: Moderate Improves with: Reports: None Worsens with: Reports: None Context: Reports: Other Associated Symptoms: Reports: No Other Symptoms Treatments MANAGER SAS: Reports: Other Medication(s) (Tramadol) - Related Data Allergies Allergy/AdvReac Type Severity Reaction Status Date / Time Penicillins Allergy Hives Verified 04/06/19 11:56 [id number]-Vto-Gxr Reductase Allergy Muscle Verified 04/06/19 11:56 Inhibitor Aches Home Meds: Home Meds Furosemide 20 mg PO BID 03/04/17 [History] Gabapentin [Neurontin] 300 mg PO TID 03/04/17 [History] Metoprolol Succinate [Toprol XL] 25 mg PO DAILY 03/04/17 [History] amLODIPine [Norvasc] 5 mg PO DAILY 03/04/17 [History] traMADol HCl [Tramadol HCl] 50 mg PO Q8HR PRN 03/04/17 [History] Acetaminophen [Acetaminophen Extra Strength] 1,000 mg PO Q6HR 03/02/19 [History] Albuterol Sulfate [Albuterol Sulfate Hfa] 2 puff INH Q4H PRN 03/02/19 [History] Amitriptyline [Elavil] 50 mg PO DAILY 03/02/19 [History] Aspirin [Ecotrin EC] 81 mg PO DAILY 03/02/19 [History] Ipratropium/Albuterol Sulfate [Iprat-Albut 0.5-3(2.5) MG/3 ML] 3 ml NEB Q4H PRN 03/02/19 [History] Pantoprazole Sodium [Protonix] 40 mg PO DAILY 03/02/19 [History] predniSONE 20 mg PO WITHBREAKFAST 5 Days #5 tablet 03/04/19 [Rx] Past Medical History HEENT History: Reports: Cataract Cardiovascular History: Reports: [place] Other Cardiovascular History: 2 stents Respiratory History: Reports: Asthma, COPD Other Respiratory History: USES NEBULIZERS AND INHALER (INCRUSE) PRN. Gastrointestinal History: Reports: Cholelithiasis, GERD Other Gastrointestinal History: reflux causes difficulty swallowing Genitourinary History: Reports: UTI, Recurrent HERBOLOGIST History: Reports: Musculoskeletal History: Reports: Osteoarthritis Other Musculoskeletal History: bilaterally knee arthroplasty Neurological History: Reports: CVA Psychiatric History: Reports: None Endocrine/Metabolic History: Reports: None Hematologic History: Reports: None Immunologic History: Reports: None Oncologic (Cancer) History: Reports: None Dermatologic History: Reports: Other (See Below) Other Dermatologic History: STATES SHE HAS PSORIASIS ON HER SCALP. - Infectious Disease History Infectious Disease History: Reports: Chicken Pox, Measles, Mumps, Pertussis ( Whooping Cough) - Past Surgical History Head Surgeries/Procedures: Reports: None HEENT Surgical History: Reports: Cataract Surgery Other HEENT Surgeries/Procedures: bilateral cataract surgery Cardiovascular Surgical History: Reports: Coronary Artery Stent Respiratory Surgical History: Reports: None GI Surgical History: Reports: Appendectomy, Cholecystectomy, Colonoscopy Female Surgical History: Reports: Salpingo-Oophorectomy Other Female Surgeries/Procedures: 5 NVD Endocrine Surgical History: Reports: None Neurological Surgical History: Reports: None Musculoskeletal Surgical History: Reports: Knee Replacement Other Musculoskeletal Surgeries/Procedures:: bilaterally knee replacement Oncologic Surgical History: Reports: None Social & Family History - Family History Family Medical History: Noncontributory - Caffeine Use Caffeine Use: Reports: Coffee Caffeine Use Comment: tea & diet coke ED ROS GENERAL - Review of Systems Review Of Systems: Comprehensive ROS is negative, except as noted in HPI. ED EXAM,LOWER BACK PAIN/INJURY - Physical Exam Exam: See Below Exam Limited By: No Limitations General Appearance: Alert, WD/WN, Moderate Distress, Obese Eye Exam: Bilateral Eye: EOMI, Normal Inspection, PERRL Ears: Normal External Exam, Normal Canal, Hearing Grossly Normal, Normal TMs Nose: Normal Inspection, Normal Mucosa, No Blood Throat/Mouth: Normal Inspection, Normal Lips, Normal Teeth, Normal Gums, Normal Oropharynx, Normal Voice, No Airway Compromise Head: Atraumatic, Normocephalic Neck: Normal Inspection, Supple, Non-Tender, Full Range of Motion Respiratory/Chest: No Respiratory Distress, Lungs Clear, Normal Breath Sounds, No Accessory Muscle Use, Chest Non-Tender Cardiovascular: Normal Peripheral Pulses, Regular Rate, Rhythm, No Edema, No Gallop, No JVD, No Murmur, No Rub GI/Abdominal: Normal Bowel Sounds, Soft, Non-Tender, No Organomegaly, No Distention, No Abnormal Bruit, No Mass (Female) Exam: Deferred Rectal (Female) Exam: Deferred Back Exam: Decreased Range of Motion, Muscle Spasm, Paraspinal Tenderness, Vertebral Tenderness Extremities: Leg Pain, Limited Range of Motion, Other (The patient can not raise her lower extremities without increased pain in her lower back and hips ( right worse than left). ) Neurological: Alert, Normal Mood/Affect, Normal Dorsiflexion, CN II-XII Intact, Oriented x 3, Straight Leg Raise (L), Straight Leg Raise (R) Psychiatric: Normal Affect, Normal Mood Skin Exam: Warm, Dry, Intact, Normal Color, No Rash Lymphatic: No Adenopathy Course - Vital Signs Last Recorded V/S: Last Vital Signs Temp 36.8 C 04/06/19 11:46 Pulse 72 04/06/19 11:46 Resp 20 04/06/19 11:46 BP 138/72 04/06/19 11:46 Pulse Ox 88 L 04/06/19 11:46 - Orders/Labs/Meds Orders: Active Orders 24 hr Category Date Time Status UA RFX NOÉ AND CULT IF INDIC [URIN] Urgent Lab 04/06/19 12:49 Ordered Labs: Laboratory Tests 04/06/19 04/06/19 Range/Units 12:43 12:43 WBC 9.7 (5.0-10.0) 10^3/uL RBC 4.92 (4.2-5.4) 10^6/uL Hgb 15.0 (12.0-16.0) g/dL Hct 44.4 (37.0-47.0) % MCV 90.2 (80-100) fL MCH 30.5 (27.0-34.0) pg MCHC 33.8 (33.0-35.0) g/dL Plt Count 314 (150-450) 10^3/uL Neut % (Auto) 53.1 (42.2-75.2) % Lymph % (Auto) 31.0 (20.5-50.1) % [place] % (Auto) 11.8 H (2-8) % Eos % (Auto) 3.5 H (1.0-3.0) % Baso % (Auto) 0.6 (0.0-1.0) % Sodium 136 (135-145) mmol/L Potassium 3.6 (3.6-5.0) mmol/L Chloride 104 (101-111) mmol/L Carbon Dioxide 23.0 (21.0-31.0) mmol/L Anion Gap 12.6 BUN 16 (7-18) mg/dL Creatinine 0.8 (0.6-1.3) mg/dL Est Cr Clr Drug Dosing 42.30 mL/min Estimated GFR (MDRD) > 60 BUN/Creatinine Ratio 20.00 Glucose 137 H (74-105) mg/dL Calcium 9.6 (8.4-10.2) mg/dl Total Bilirubin 0.5 (0.2-1.0) mg/dL AST 20 (10-42) IU/L ALT 14 (10-60) IU/L Alkaline Phosphatase 160 H (42-121) IU/L Total Protein 6.9 (6.7-8.2) g/dl Albumin 3.6 (3.2-5.5) g/dl Globulin 3.3 Albumin/Globulin Ratio 1.09 Meds: Medications Discontinued Medications Generic Name Dose Route Start Last Admin Trade Name Freq PRN Reason Stop Dose Admin Ketorolac Tromethamine 30 mg 04/06/19 12:39 04/06/19 12:51 Toradol IVPUSH 04/06/19 12:40 30 mg ONETIME ONE Administration Departure - Departure Time of Disposition: 13:53 Disposition: Home, Self-Care 01 Condition: Fair Clinical Impression: Low back pain radiating to lower extremity - Discharge Information *PRESCRIPTION DRUG MONITORING PROGRAM REVIEWED*: Not Applicable *COPY OF PRESCRIPTION DRUG MONITORING REPORT IN PATIENT BHARATHI: Not Applicable Instructions: Acute Back Pain, Adult Forms: ED Department Discharge Care Plan Goals: The patient was advised of the examination results during the visit. The patient was given an injection of Toradol (30 mg) while in the ED. The patient was discharged with scripts for Toradol (10 mg) #20 to take 1 by mouth every 6 hours and Flexeril (5 mg) #20 to take 1 by mouth at bedtime as needed. If the patient has any additional symptoms or concerns, the patient should either return to the emergency department or visit her primary care facility. Sepsis Event Note - Evaluation Sepsis Screening Result: No Definite Risk - Focused Exam Vital Signs: Vital Signs Temp Pulse Resp BP Pulse Ox 04/06/19 11:46 36.8 C 72 20 138/72 88 L Date Exam was Performed: 04/06/19 Time Exam was Performed: 13:53 - My Orders Last 24 Hours: My Active Orders 04/06/19 12:49 UA RFX NOÉ AND CULT IF INDIC [URIN] Urgent - Assessment/Plan Last 24 Hours: My Active Orders 04/06/19 12:49 UA RFX NOÉ AND CULT IF INDIC [URIN] Urgent
[2019-04-06 13:12] LABS: ANION GAP 12.6; CHLORIDE,CL 104 mmol/L (101-111); SODIUM,NA 136 mmol/L (135-145)
== END 2019-04-06 14:14 | disposition home or self-care (01) ==
LOC: DL.ED 11:46
DX: M54.5 Low back pain (principal); Z88.0 Allergy status to penicillin; Z88.2 Allergy status to sulfonamides; Z79.899 Other long term (current) drug therapy; Z79.82 Long term (current) use of aspirin
CPT/HCPCS: 36415; 80053; 81001; 85025; 87086; 99283; J1885; 96374

== ENCOUNTER 2019-05-27 16:42 | Emergency (ER) | payer MEDICARE, OTHER ==
[2019-05-27] MEDS ORDERED: GI Cocktail Oral Solution 30 ML PO ONE (17:12)
[2019-05-27] MEDS ORDERED: Ondansetron 4 MG Tab.DIS PO ONE (17:12)
--- NOTE | 2019-05-27 17:19 | EDM.PDOC ---
<Meseret Casey - Last Filed: 05/27/19 17:51> ED HPI GENERAL MEDICAL PROBLEM - General Chief Complaint: Gastrointestinal Problem Stated Complaint: abdominal pain, belching Time Seen by Provider: 05/27/19 17:00 Source of Information: Reports: Patient History Limitations: Reports: No Limitations - History of Present Illness INITIAL COMMENTS - FREE TEXT/NARRATIVE: Patient presents to the ED by EMS from the clinic with complaints of abdominal pain, nausea, and increased belching. She did have labs: CMP, CBC completed at the clinic. She describes onset of these symptoms last night at 10 pm. She cannot describe the quality of the pain but describes feeling "yucky." The patient states she has had 3 bowel movements since last night with formed stool. She denies blood in the stool, vomiting, chest pain, shortness of breath , blood in the urine, pain with urination. She recalls eating porkchops yesterday. No other individuals consumed the porkchops. She has a past surgical history of cardiac stents, cholecystecomy, appendectomy, and hysterectomy. She has a significant past medical history of COPD. She admits to taking medication for chronic GERD. She believes her last colonoscopy was approximately 5 years ago, she is unsure when she is to follow-up with screening. Onset Date: 05/26/19 Onset Time: 22:00 Duration: Constant Location: Reports: Abdomen (epigastric) Quality: Reports: Ache Severity: Moderate Improves with: Reports: None Worsens with: Reports: None Associated Symptoms: Reports: Nausea/Vomiting - Related Data Allergies Allergy/AdvReac Type Severity Reaction Status Date / Time Penicillins Allergy Hives Verified 05/27/19 17:06 Yyxbzom-Drh-Xpi Reductase Allergy Muscle Verified 05/27/19 17:06 Inhibitor Aches Home Meds: Home Meds Furosemide 20 mg PO BID 03/04/17 [History] Gabapentin [Neurontin] 300 mg PO TID 03/04/17 [History] Metoprolol Succinate [Toprol XL] 25 mg PO DAILY 03/04/17 [History] amLODIPine [Norvasc] 5 mg PO DAILY 03/04/17 [History] traMADol HCl [Tramadol HCl] 50 mg PO Q8HR PRN 03/04/17 [History] Acetaminophen [Acetaminophen Extra Strength] 1,000 mg PO Q6HR 03/02/19 [History] Albuterol Sulfate [Albuterol Sulfate Hfa] 2 puff INH Q4H PRN 03/02/19 [History] Amitriptyline [Elavil] 50 mg PO DAILY 03/02/19 [History] Aspirin [Ecotrin EC] 81 mg PO DAILY 03/02/19 [History] Ipratropium/Albuterol Sulfate [Iprat-Albut 0.5-3(2.5) MG/3 ML] 3 ml NEB Q4H PRN 03/02/19 [History] Pantoprazole Sodium [Protonix] 40 mg PO DAILY 03/02/19 [History] predniSONE 20 mg PO WITHBREAKFAST 5 Days #5 tablet 03/04/19 [Rx] Past Medical History HEENT History: Reports: Cataract Cardiovascular History: Reports: [place] Other Cardiovascular History: 2 stents Respiratory History: Reports: Asthma, COPD Other Respiratory History: USES NEBULIZERS AND INHALER (INCRUSE) PRN. 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 - Infectious Disease History Infectious Disease History: Reports: Chicken Pox, Measles, Mumps, Pertussis ( Whooping Cough) - Past Surgical History Head Surgeries/Procedures: Reports: None HEENT Surgical History: Reports: Cataract Surgery Other HEENT Surgeries/Procedures: bilateral cataract surgery Cardiovascular Surgical History: Reports: Coronary Artery Stent Respiratory Surgical History: Reports: None GI Surgical History: Reports: Appendectomy, Cholecystectomy, Colonoscopy Female Surgical History: Reports: Salpingo-Oophorectomy Other Female Surgeries/Procedures: 5 NVD Endocrine Surgical History: Reports: None Neurological Surgical History: Reports: None Musculoskeletal Surgical History: Reports: Knee Replacement Other Musculoskeletal Surgeries/Procedures:: bilaterally knee replacement Oncologic Surgical History: Reports: None Social & Family History - Family History Family Medical History: Noncontributory - Caffeine Use Caffeine Use: Reports: Coffee Caffeine Use Comment: tea & diet coke ED ROS GENERAL - Review of Systems Review Of Systems: See Below Constitutional: Reports: Decreased Appetite. Denies: Fever, Chills Respiratory: Denies: Shortness of Breath, Wheezing, Cough Cardiovascular: Denies: Chest Pain GI/Abdominal: Reports: Abdominal Pain, Anorexia, Decreased Appetite, Distension , Nausea. Denies: Bloody Stool, Constipation, Diarrhea, Vomiting : Denies: Discharge, Flank Pain, Frequency, Hematuria, Pain, Urgency ED EXAM, GI/ABD - Physical Exam Exam: See Below Exam Limited By: No Limitations General Appearance: Alert, No Apparent Distress, Obese Head: Atraumatic, Normocephalic Respiratory/Chest: No Respiratory Distress, Lungs Clear, Normal Breath Sounds Cardiovascular: Normal Peripheral Pulses, Regular Rate, Rhythm, No Murmur GI/Abdominal Exam: Normal Bowel Sounds, Distended, Tender (epigastric). No: Rebound, Hernia Back Exam: No: CVA Tenderness (L), CVA Tenderness (R) Neurological: Alert, Oriented Psychiatric: Normal Affect, Normal Mood Skin Exam: Warm, Dry, Intact Course - Vital Signs Last Recorded V/S: Last Vital Signs Temp 97.8 F 05/27/19 17:03 Pulse 88 05/27/19 17:03 Resp 16 05/27/19 17:03 BP 142/75 H 05/27/19 17:03 Pulse Ox 95 05/27/19 17:03 - Orders/Labs/Meds Orders: Active Orders 24 hr Category Date Time Status Peripheral IV Care [RC] . DIRECTED Care 05/27/19 17:49 Active Abdomen Pelvis w Cont [CT] Urgent Exams 05/27/19 17:49 Taken CULTURE URINE [RM] Stat Lab 05/27/19 17:14 Received Sodium Chloride 0.9% [Saline Flush] Med 05/27/19 17:49 Active 10 ml FLUSH ASDIRECTED PRN Peripheral IV Insertion Adult [OM.PC] Routine Oth 05/27/19 17:49 Ordered Medication Orders Sodium Chloride (Saline Flush) 10 ml FLUSH ASDIRECTED PRN PRN Reason: Keep Vein Open Labs: Laboratory Tests 05/27/19 Range/Units 17:14 Urine Color Yellow (YELLOW) Urine Appearance Slightly cloudy (CLEAR) Urine pH 6.0 (5.0-9.0) Ur Specific [place] 1.015 (1.005-1.030) Urine Protein Negative (NEGATIVE) Urine Glucose (UA) 100 H (NEGATIVE) Urine Ketones Negative (NEGATIVE) Urine Occult Blood Trace-intact H (NEGATIVE) Urine Nitrite Negative (NEGATIVE) Urine Bilirubin Negative (NEGATIVE) Urine Urobilinogen 0.2 (0.2-1.0) mg/dL Ur Leukocyte Esterase Trace H (NEGATIVE) Urine RBC 0-5 /HPF Urine WBC 0-5 (0-5/HPF) /HPF Ur Epithelial Cells Rare (NOT SEEN) /HPF Urine Bacteria Rare (0-FEW/HPF) /HPF Urine Mucus Rare (NOT SEEN) /LPF Labs obtained at [facility]: Lipase 96 Amylase 33 BUN 10 Sodium 143 Potassium 3.6 Chloride 108 CO2 23.8 Glucose 121 Creatinine 0.9 Calcium 10.1 Albumin 3.60 Alk Phos 230 AST 17 ALT 21 Total Bili 0.4 Total protein 7.2 GFR calculated >60 WBC 8.94 RBC 4.89 Hgb 14.4 Hct 42.8 MCV 87.5 MCH 29.4 MCHC 33.6 RDW 43.9 Platelets 327 MPV 9.2 Neutrophils relative 56.2 Lymphocytes relative 29.3 Monocytes relative 9.8 Eosinophils relative 3.9 Basophils relative 0.7 Immature Grans relative 0.10 Neutrophils absolute 5.02 Lymphocytes absolute 2.62 Monocytes absolute 0.88 Eosinophils absolute 0.35 Basophils absolute 0.06 Immature Grans absolute 0.01 Rapid influenza Negative Meds: Medications Generic Name Dose Route Start Last Admin Trade Name Freq PRN Reason Stop Dose Admin Sodium Chloride 10 ml 05/27/19 17:49 Saline Flush FLUSH ASDIRECTED PRN Keep Vein Open Discontinued Medications Generic Name Dose Route Start Last Admin Trade Name Freq PRN Reason Stop Dose Admin Al Hydroxide/Mg Hydroxide 30 ml 05/27/19 17:12 05/27/19 17:18 Gi Cocktail PO 05/27/19 17:13 30 ml ONETIME ONE Administration Iopamidol 100 ml 05/27/19 17:49 05/27/19 18:02 Isovue-300 (61%) IVPUSH 05/27/19 17:50 100 ml ONETIME ONE Administration Ondansetron HCl 4 mg 05/27/19 17:12 05/27/19 17:18 Zofran Odt PO 05/27/19 17:13 4 mg ONETIME ONE Administration - Re-Assessments/Exams Free Text/Narrative Re-Assessment/Exam: 05/27/19 17:51 Patient ingested GI cocktail, PO zofran. Rested for approximately 15 minutes. Upon waking the patient reports that she still feels "yucky," but nausea is improved. Palpable tenderness noted again to epigastric area. Departure - Departure Disposition: Home, Self-Care 01 Clinical Impression: Chronic knee pain Qualifiers: Laterality: bilateral Qualified Code(s): M25.561 - Pain in right knee; M25.562 - Pain in left knee; G89.29 - Other chronic pain GERD (gastroesophageal reflux disease) Qualifiers: Esophagitis presence: without esophagitis Qualified Code(s): K21.9 - Gastro- esophageal reflux disease without esophagitis - Discharge Information Instructions: Food Choices for Gastroesophageal Reflux Disease, Adult, Easy-to- Read, Gastroesophageal Reflux Disease, Adult, [id number], Musculoskeletal Pain , Abdominal Pain, Adult, [id number], Indigestion, [id number] Forms: ED Department Discharge Additional Instructions: Continue taking Famatodine for indigestion Follow up with your primary care facility Sepsis Event Note - Evaluation Sepsis Screening Result: No Definite Risk - Focused Exam Vital Signs: Vital Signs Temp Pulse Resp BP Pulse Ox 05/27/19 17:03 97.8 F 88 16 142/75 H 95 Date Exam was Performed: 05/27/19 Time Exam was Performed: 17:51 <Gomez Harrison - Last Filed: 05/27/19 18:44> Course - Re-Assessments/Exams Free Text/Narrative Re-Assessment/Exam: 05/27/19 18:25 I personally performed or re-performed the physical examination and medical decision making. I have verified all student documentation or findings, including history, physical exam and/or medical decision making. Free Text/Narrative Re-Assessment/Exam: 05/27/19 19:00 Care of pt transferred to Valentine Johnson FILLING OPERATOR at shift change. Sepsis Event Note - Focused Exam Date Exam was Performed: 05/27/19 Time Exam was Performed: 18:44 <Valentine Johnson - Last Filed: 05/27/19 19:26> Course - Radiology Interpretation Free Text/Narrative:: CT Abdomen/Pelvis: FINDINGS: Lungs: Calcified granuloma right lower lobe. Mediastinum: A small sliding hiatal hernia is present. Liver: Examination of the liver demonstrates a lobular surface contour, and enlargement of the left and caudate lobes, findings consistent with cirrhosis. Gallbladder and bile ducts: There has been a cholecystectomy. Prominent common bile duct stable in appearance in comparison to the prior study, most likely representing post cholecystectomy physiology. Correlation with biliary chemistries suggested. Pancreas: Normal. No ductal dilation. Spleen: The spleen demonstrates punctate calcifications, consistent with remote granulomatous organism exposure. Adrenals: Normal. No mass. Kidneys and ureters: Bilateral punctate nonobstructive renal calculi. Small simple right renal cyst measures 8 mm. Small simple left renal cyst measures 11 mm. Stomach and bowel: Mild diverticulosis is present in the distal colon. No diverticulitis. Appendix: No evidence of appendicitis. Intraperitoneal space: Unremarkable. No free air. No significant fluid collection. Vasculature: The aorta demonstrates moderate atherosclerotic calcification. Lymph nodes: Unremarkable. No enlarged lymph nodes. Bladder: Unremarkable as visualized. Reproductive: There has been a hysterectomy. Bones/joints: Mild anterolisthesis of L4 on L5. Severe central spinal stenosis L2-L3, L3-L4, and L4- L5. Bilateral facet joint arthropathy L5-S1. Soft tissues: Left inguinal hernia. 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 IMPRESSION: 1. Examination of the liver demonstrates a lobular surface contour, and enlargement of the left and caudate lobes, findings consistent with cirrhosis. 2. There has been a cholecystectomy. 3. A small sliding hiatal hernia is present. 4. There has been a hysterectomy. 5. Mild diverticulosis is present in the distal colon. No diverticulitis. 6. Anterior middle compartment pelvic floor prolapse. 7. No acute intra-abdominal or pelvic findings. COMMENTS: Consistent with the [employer]'s Incidental Findings Committee white paper (J Am James Radiol 2018): Any incidental cystic renal lesion classified in this report as too small to characterize or simple appearing is likely a benign cyst. No follow-up imaging is recommended for these lesions per consensus recommendations based on imaging criteria. Thank you for allowing us to participate in the care of your patient. Dictated and Authenticated by: Tip Ordaz MD 05/27/2019 6:55 PM Central Time ([place] & [place]) See rad report Departure - Departure Time of Disposition: 19:24 Condition: Fair - Discharge Information *PRESCRIPTION DRUG MONITORING PROGRAM REVIEWED*: No *COPY OF PRESCRIPTION DRUG MONITORING REPORT IN PATIENT BHARATHI: No Sepsis Event Note - Focused Exam Date Exam was Performed: 05/27/19 Time Exam was Performed: 19:23
[2019-05-27] MEDS ORDERED: Iopamidol 612 MG/ML 100 ML Bottle IVPUSH ONE (17:49)
[2019-05-27] MEDS ORDERED: Sodium Chloride 0.9% 10 ML Syringe FLUSH PRN (17:49)
== END 2019-05-27 19:36 | disposition home or self-care (01) ==
LOC: DL.ED 16:42
DX: K21.9 Gastro-esophageal reflux disease without esophagitis (principal); M25.561 Pain in right knee; M25.562 Pain in left knee; J44.9 Chronic obstructive pulmonary disease, unspecified; Z79.899 Other long term (current) drug therapy; Z86.73 Personal history of transient ischemic attack (TIA), and cerebral infarction without residual deficits; Z88.0 Allergy status to penicillin; Z88.8 Allergy status to other drugs, medicaments and biological substances
CPT/HCPCS: 74177; 81001; 87086; 99284; A9270; Q9967; 99283

== ENCOUNTER 2019-05-30 00:35 | Emergency (ER) | payer MEDICARE, OTHER ==
--- NOTE | 2019-05-30 00:49 | EDM.PDOC ---
ED HPI GENERAL MEDICAL PROBLEM - General Chief Complaint: Abdominal Pain Stated Complaint: ADOMINAL PAIN Time Seen by Provider: 05/30/19 00:48 Source of Information: Reports: Patient, RN, RN Notes Reviewed History Limitations: Reports: No Limitations - History of Present Illness INITIAL COMMENTS - FREE TEXT/NARRATIVE: patient presents to ER with complaint of epigastric pain. Patient states the Protonix and the famotidine that she is prescribed that she takes for her stomach upsets her stomach. Patient was seen on Thursday night with similar complaints. CAT scan showed some liver cirrhosis, hiatal hernia, mild diverticulosis without diverticulitis, pelvic floor prolapse, otherwise negative. Patient has had a cholecystectomy. Patient states tonight she had pork chops and potato salad for supper, which is also what she had on Thursday night when she developed the upset stomach. Patient states the GI cocktail and the Zofran that was given to her on Thursday helped her quite a bit. Patient denies some nausea but no vomiting. Patient states she does take all of her medications including pain pills with food. Onset: Gradual Duration: Intermittent Abdominal Pain Score (Numeric/FACES): 8 - Related Data Allergies Allergy/AdvReac Type Severity Reaction Status Date / Time Penicillins Allergy Hives Verified 05/30/19 00:43 Kiijnwo-Yew-Nct Reductase Allergy Muscle Verified 05/30/19 00:43 Inhibitor Aches Home Meds: Home Meds Furosemide 20 mg PO BID 03/04/17 [History] Gabapentin [Neurontin] 300 mg PO TID 03/04/17 [History] Metoprolol Succinate [Toprol XL] 25 mg PO DAILY 03/04/17 [History] amLODIPine [Norvasc] 5 mg PO DAILY 03/04/17 [History] traMADol HCl [Tramadol HCl] 50 mg PO Q8HR PRN 03/04/17 [History] Acetaminophen [Acetaminophen Extra Strength] 1,000 mg PO Q6HR 03/02/19 [History] Albuterol Sulfate [Albuterol Sulfate Hfa] 2 puff INH Q4H PRN 03/02/19 [History] Amitriptyline [Elavil] 50 mg PO DAILY 03/02/19 [History] Aspirin [Ecotrin EC] 81 mg PO DAILY 03/02/19 [History] Ipratropium/Albuterol Sulfate [Iprat-Albut 0.5-3(2.5) MG/3 ML] 3 ml NEB Q4H PRN 03/02/19 [History] Pantoprazole Sodium [Protonix] 40 mg PO DAILY 03/02/19 [History] predniSONE 20 mg PO WITHBREAKFAST 5 Days #5 tablet 03/04/19 [Rx] Famotidine 20 mg PO DAILY 05/30/19 [History] Past Medical History HEENT History: Reports: Cataract Cardiovascular History: Reports: [place] Other Cardiovascular History: 2 stents Respiratory History: Reports: Asthma, COPD Other Respiratory History: USES NEBULIZERS AND INHALER (INCRUSE) PRN. 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 - Infectious Disease History Infectious Disease History: Reports: Chicken Pox, Measles, Mumps, Pertussis ( Whooping Cough) - Past Surgical History Head Surgeries/Procedures: Reports: None HEENT Surgical History: Reports: Cataract Surgery Other HEENT Surgeries/Procedures: bilateral cataract surgery Cardiovascular Surgical History: Reports: Coronary Artery Stent Respiratory Surgical History: Reports: None GI Surgical History: Reports: Appendectomy, Cholecystectomy, Colonoscopy Female Surgical History: Reports: Salpingo-Oophorectomy Other Female Surgeries/Procedures: 5 NVD Endocrine Surgical History: Reports: None Neurological Surgical History: Reports: None Musculoskeletal Surgical History: Reports: Knee Replacement Other Musculoskeletal Surgeries/Procedures:: bilaterally knee replacement Oncologic Surgical History: Reports: None Social & Family History - Family History Family Medical History: Noncontributory - Tobacco Use Smoking Status *Q: Current Every Day Smoker Years of Tobacco use: 60 Packs/Tins Daily: 1 - Caffeine Use Caffeine Use: Reports: Tea Caffeine Use Comment: tea & diet coke - Recreational Drug Use Recreational Drug Use: No ED ROS GENERAL - Review of Systems Review Of Systems: Comprehensive ROS is negative, except as noted in HPI. ED EXAM, GI/ABD - Physical Exam Exam: See Below Exam Limited By: No Limitations General Appearance: Alert, WD/WN, Mild Distress Eyes: Bilateral: Normal Appearance, EOMI Ears: Normal External Exam, Hearing Grossly Normal Nose: Normal Inspection Throat/Mouth: Normal Inspection, Normal Voice, No Airway Compromise Head: Atraumatic, Normocephalic Neck: Normal Inspection, Supple, Non-Tender, Full Range of Motion Respiratory/Chest: No Respiratory Distress, Lungs Clear, Normal Breath Sounds, No Accessory Muscle Use, Chest Non-Tender, Decreased Breath Sounds Cardiovascular: Normal Peripheral Pulses GI/Abdominal Exam: Normal Bowel Sounds, Soft, Tender (epigastrum) (Female) Exam: Deferred Rectal (Female) Exam: Deferred Back Exam: Normal Inspection, Full Range of Motion, NT Extremities: Normal Inspection, Normal Range of Motion, Non-Tender, Normal Capillary Refill, No Pedal Edema Neurological: Alert, Oriented, CN II-XII Intact, Normal Cognition, Normal Gait, Normal Reflexes, No Motor/Sensory Deficits Psychiatric: Normal Affect, Normal Mood Skin Exam: Warm, Dry, Intact, Normal Color, No Rash Lymphatic: No Adenopathy Course - Vital Signs Last Recorded V/S: Last Vital Signs Temp 98.7 F 05/30/19 00:38 Pulse 82 05/30/19 00:38 Resp 20 05/30/19 00:38 BP 163/65 H 05/30/19 00:38 Pulse Ox 92 L 05/30/19 00:38 - Orders/Labs/Meds Meds: Medications Discontinued Medications Generic Name Dose Route Start Last Admin Trade Name Freq PRN Reason Stop Dose Admin Al Hydroxide/Mg Hydroxide 30 ml 05/30/19 00:50 05/30/19 00:54 Gi Cocktail PO 05/30/19 00:51 30 ml ONETIME ONE Administration Ondansetron HCl 4 mg 05/30/19 00:50 05/30/19 00:54 Zofran Odt PO 05/30/19 00:51 4 mg ONETIME ONE Administration - Re-Assessments/Exams Free Text/Narrative Re-Assessment/Exam: 05/30/19 01:23 Pt states feeling much better after the GI cocktail. Departure - Departure Time of Disposition: 01:23 Disposition: Home, Self-Care 01 Condition: Fair Clinical Impression: GERD (gastroesophageal reflux disease) Qualifiers: Esophagitis presence: without esophagitis Qualified Code(s): K21.9 - Gastro- esophageal reflux disease without esophagitis - Discharge Information *PRESCRIPTION DRUG MONITORING PROGRAM REVIEWED*: No *COPY OF PRESCRIPTION DRUG MONITORING REPORT IN PATIENT BHARATHI: No Instructions: Indigestion, [id number], Food Choices for Gastroesophageal Reflux Disease, Adult, [id number], Gastroesophageal Reflux Disease, Adult, [id number] Forms: ED Department Discharge Additional Instructions: decrease caffeine intake increase water intake Follow food list suggestions for GERD make an appointment with Dr. Hwang tomorrow morning for further GI workup Sepsis Event Note - Evaluation Sepsis Screening Result: No Definite Risk - Focused Exam Vital Signs: Vital Signs Temp Pulse Resp BP Pulse Ox 05/30/19 00:38 98.7 F 82 20 163/65 H 92 L Date Exam was Performed: 05/30/19 Time Exam was Performed: 01:23
[2019-05-30] MEDS ORDERED: GI Cocktail Oral Solution 30 ML PO ONE (00:50)
[2019-05-30] MEDS ORDERED: Ondansetron 4 MG Tab.DIS PO ONE (00:50)
== END 2019-05-30 01:29 | disposition home or self-care (01) ==
LOC: DL.ED 00:35
DX: K21.9 Gastro-esophageal reflux disease without esophagitis (principal); I25.2 Old myocardial infarction; J44.9 Chronic obstructive pulmonary disease, unspecified; F17.210 Nicotine dependence, cigarettes, uncomplicated; Z86.73 Personal history of transient ischemic attack (TIA), and cerebral infarction without residual deficits; Z88.0 Allergy status to penicillin; Z79.899 Other long term (current) drug therapy; Z79.82 Long term (current) use of aspirin
CPT/HCPCS: 99283; A9270

== ENCOUNTER 2020-10-08 18:15 | Emergency (ER) | payer MEDICARE, OTHER ==
[2020-10-08] MEDS ORDERED: Labetalol 20 MG/4 ML Syringe IVPUSH ONE (19:33)
--- NOTE | 2020-10-08 19:54 | CR ---
PROCEDURE INFORMATION: Exam: XR Chest Exam date and time: 10/08/2020 7:16 PM Age: 80 years old Clinical indication: Other: HTN TECHNIQUE: Imaging protocol: XR of the chest. Views: 1 view. COMPARISON: CT Chest w Cont 03/27/2020 11:07 AM FINDINGS: Airway: The airways are patent. Lungs: Low lung volumes causes crowding of the bronchovascular structures. Calcified granuloma in the right lung base is of no clinical concern. Pleural spaces: There are no pleural effusions present. There is no evidence of pneumothorax. Heart/Mediastinum: The heart is moderately enlarged. Vasculature: Calcified aortic knob. Bones/joints: No acute skeletal abnormality or aggressive osseous lesion. IMPRESSION: Negative for acute thoracic pathology.
[2020-10-08 20:08] LABS: CHLORIDE,CL 107 mmol/L (98-107); SODIUM,NA 143 mmol/L (136-145)
--- NOTE | 2020-10-08 20:55 | EDM.PDOC ---
ED HPI GENERAL MEDICAL PROBLEM - General Chief Complaint: Cardiovascular Problem Stated Complaint: AMBULANCE Time Seen by Provider: 10/08/20 19:05 Source of Information: Reports: Patient - History of Present Illness INITIAL COMMENTS - FREE TEXT/NARRATIVE: ED with report of high blood pressure, Spinal steroid injections in GF today, told at that time, BP was high and she should recheck and continue to monitor. Normal readings 120's systolic, Tonight at home up to 180. Slight headache but had prior to injections and does not feel related. No weakness, speech difficulty or visual changes. States took usual BP medications today. - Related Data Allergies Allergy/AdvReac Type Severity Reaction Status Date / Time methacholine Allergy UNKNOWN Verified 10/08/20 18:39 Penicillins Allergy Hives Verified 10/08/20 18:39 Mywnyqt-Bpc-Bof Reductase Allergy Muscle Verified 10/08/20 18:39 Inhibitor Aches Home Meds: Home Meds Furosemide 20 mg PO BID 03/04/17 [History] Gabapentin [Neurontin] 300 mg PO TID 03/04/17 [History] Metoprolol Succinate [Toprol XL] 25 mg PO DAILY 03/04/17 [History] amLODIPine [Norvasc] 5 mg PO DAILY 03/04/17 [History] traMADol HCl [Tramadol HCl] 50 mg PO Q8HR PRN 03/04/17 [History] Acetaminophen [Acetaminophen Extra Strength] 1,000 mg PO Q6HR 03/02/19 [History] Albuterol Sulfate [Albuterol Sulfate Hfa] 2 puff INH Q4H PRN 03/02/19 [History] Amitriptyline [Elavil] 50 mg PO DAILY 03/02/19 [History] Aspirin [Ecotrin EC] 81 mg PO DAILY 03/02/19 [History] Ipratropium/Albuterol Sulfate [Iprat-Albut 0.5-3(2.5) MG/3 ML] 3 ml NEB Q4H PRN 03/02/19 [History] Pantoprazole Sodium [Protonix] 40 mg PO DAILY 03/02/19 [History] predniSONE 20 mg PO WITHBREAKFAST 5 Days #5 tablet 03/04/19 [Rx] Famotidine 20 mg PO DAILY 05/30/19 [History] Past Medical History HEENT History: Reports: Cataract Cardiovascular History: Reports: [place] Other Cardiovascular History: 2 stents Respiratory History: Reports: Asthma, COPD Other Respiratory History: USES NEBULIZERS AND INHALER (INCRUSE) PRN. 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 - Infectious Disease History Infectious Disease History: Reports: Chicken Pox, Measles, Mumps, Pertussis (Whooping Cough) - Past Surgical History Head Surgeries/Procedures: Reports: None HEENT Surgical History: Reports: Cataract Surgery Other HEENT Surgeries/Procedures: bilateral cataract surgery Cardiovascular Surgical History: Reports: Coronary Artery Stent Respiratory Surgical History: Reports: None GI Surgical History: Reports: Appendectomy, Cholecystectomy, Colonoscopy Female Surgical History: Reports: Salpingo-Oophorectomy Other Female Surgeries/Procedures: 5 NVD Endocrine Surgical History: Reports: None Neurological Surgical History: Reports: None Musculoskeletal Surgical History: Reports: Knee Replacement Other Musculoskeletal Surgeries/Procedures:: bilaterally knee replacement Oncologic Surgical History: Reports: None Social & Family History - Family History Family Medical History: No Pertinent Family History - Tobacco Use Tobacco Use Status *Q: Current Every Day Tobacco User Years of Tobacco use: 65 Packs/Tins Daily: 1 - Caffeine Use Caffeine Use: Reports: Soda Caffeine Use Comment: tea & diet coke - Recreational Drug Use Recreational Drug Use: No ED ROS GENERAL - Review of Systems Review Of Systems: Comprehensive ROS is negative, except as noted in HPI. ED EXAM, GENERAL - Physical Exam Exam: See Below Exam Limited By: No Limitations General Appearance: Alert, Anxious Eye Exam: Bilateral Eye: EOMI, PERRL Ears: Normal External Exam, Hearing Loss Nose: Normal Inspection Throat/Mouth: Normal Inspection, Normal Lips, Normal Voice Head: Atraumatic, Normocephalic Neck: Normal Inspection Respiratory/Chest: No Respiratory Distress, Lungs Clear, Normal Breath Sounds, No Accessory Muscle Use, Chest Non-Tender. No: Respiratory Distress, Rhonchi, Wheezing Cardiovascular: Normal Peripheral Pulses GI/Abdominal: Normal Bowel Sounds Back Exam: No: Paraspinal Tenderness, Vertebral Tenderness Neurological: Alert, Oriented, CN II-XII Intact, Normal Cognition Psychiatric: Anxious Skin Exam: Warm, Dry, Intact, Normal Color, No Rash #1 Interpretation EKG Date: 10/08/20 Time: 18:31 Rhythm: NSR Rate (Beats/Min): 64 Rosine: Normal P-Wave: Present QRS: Normal Comparison: NA - No Prior EKG Course - Vital Signs Last Recorded V/S: Last Vital Signs Temp 97 F 10/08/20 18:37 Pulse 73 10/08/20 18:37 Resp 26 H 10/08/20 18:37 BP 193/81 H 10/08/20 18:37 Pulse Ox 93 L 10/08/20 18:37 - Orders/Labs/Meds Orders: Active Orders 24 hr Category Date Time Status CULTURE URINE [RM] Stat Lab 10/08/20 19:11 Received Labs: Laboratory Tests 10/08/20 10/08/20 10/08/20 Range/Units 19:11 19:26 19:26 WBC 10.6 H (5.0-10.0) 10^3/uL RBC 5.29 (4.2-5.4) 10^6/uL Hgb 17.0 H D (12.0-16.0) g/dL Hct 50.5 H (37.0-47.0) % MCV 95.5 D (80-100) fL MCH 32.1 (27.0-34.0) pg MCHC 33.7 (33.0-35.0) g/dL Plt Count 278 (150-450) 10^3/uL Neut % (Auto) 63.1 (42.2-75.2) % Lymph % (Auto) 23.5 (20.5-50.1) % [place] % (Auto) 9.9 H (2-8) % Eos % (Auto) 3.1 H (1.0-3.0) % Baso % (Auto) 0.4 (0.0-1.0) % D-Dimer, Quantitative 412 H (0-400) ng/mL Sodium (136-145) mmol/L Potassium (3.5-5.1) mmol/L Chloride (98-107) mmol/L Carbon Dioxide (21-32) mmol/L Anion Gap (7-13) mEq/L BUN (7-18) mg/dL Creatinine (0.55-1.02) mg/dL Est Cr Clr Drug Dosing mL/min Estimated GFR (MDRD) BUN/Creatinine Ratio (No establ ref range) Glucose (70-99) mg/dL Calcium (8.5-10.1) mg/dL Magnesium (1.8-2.4) mg/dL Total Bilirubin (0.2-1.0) mg/dL AST (15-37) U/L ALT (14-59) U/L Alkaline Phosphatase (46-116) U/L Troponin I High Sens (<=51) pg/mL Total Protein (6.4-8.2) g/dL Albumin (3.4-5.0) g/dL Globulin Albumin/Globulin Ratio Amylase (25-115) U/L Lipase (73-393) U/L Urine Color Yellow (YELLOW) Urine Appearance Slightly cloudy (CLEAR) Urine pH 6.5 (5.0-9.0) Ur Specific [place] 1.025 (1.005-1.030) Urine Protein Negative (NEGATIVE) Urine Glucose (UA) 250 H (NEGATIVE) Urine Ketones Negative (NEGATIVE) Urine Occult Blood Trace-intact H (NEGATIVE) Urine Nitrite Negative (NEGATIVE) Urine Bilirubin Negative (NEGATIVE) Urine Urobilinogen 0.2 (0.2-1.0) mg/dL Ur Leukocyte Esterase Trace H (NEGATIVE) Urine RBC 10-20 H /HPF Urine WBC 5-10 H (0-5/HPF) /HPF Ur Epithelial Cells Few (NOT SEEN) /HPF Urine Bacteria Rare (0-FEW/HPF) /HPF Urine Mucus Few H (NOT SEEN) /LPF 10/08/20 Range/Units 19:26 WBC (5.0-10.0) 10^3/uL RBC (4.2-5.4) 10^6/uL Hgb (12.0-16.0) g/dL Hct (37.0-47.0) % MCV (80-100) fL MCH (27.0-34.0) pg MCHC (33.0-35.0) g/dL Plt Count (150-450) 10^3/uL Neut % (Auto) (42.2-75.2) % Lymph % (Auto) (20.5-50.1) % [place] % (Auto) (2-8) % Eos % (Auto) (1.0-3.0) % Baso % (Auto) (0.0-1.0) % D-Dimer, Quantitative (0-400) ng/mL Sodium 143 (136-145) mmol/L Potassium 4.0 (3.5-5.1) mmol/L Chloride 107 (98-107) mmol/L Carbon Dioxide 22 (21-32) mmol/L Anion Gap 18.0 H (7-13) mEq/L BUN 13 (7-18) mg/dL Creatinine 0.79 (0.55-1.02) mg/dL Est Cr Clr Drug Dosing 41.48 mL/min Estimated GFR (MDRD) > 60 BUN/Creatinine Ratio 16.5 (No establ ref range) Glucose 122 H (70-99) mg/dL Calcium 10.3 H (8.5-10.1) mg/dL Magnesium 2.1 (1.8-2.4) mg/dL Total Bilirubin 0.3 (0.2-1.0) mg/dL AST 10 L (15-37) U/L ALT 17 (14-59) U/L Alkaline Phosphatase 164 H (46-116) U/L Troponin I High Sens 8 (<=51) pg/mL Total Protein 7.4 (6.4-8.2) g/dL Albumin 3.7 (3.4-5.0) g/dL Globulin 3.7 Albumin/Globulin Ratio 1.0 Amylase 40 (25-115) U/L Lipase 133 (73-393) U/L Urine Color (YELLOW) Urine Appearance (CLEAR) Urine pH (5.0-9.0) Ur Specific [place] (1.005-1.030) Urine Protein (NEGATIVE) Urine Glucose (UA) (NEGATIVE) Urine Ketones (NEGATIVE) Urine Occult Blood (NEGATIVE) Urine Nitrite (NEGATIVE) Urine Bilirubin (NEGATIVE) Urine Urobilinogen (0.2-1.0) mg/dL Ur Leukocyte Esterase (NEGATIVE) Urine RBC /HPF Urine WBC (0-5/HPF) /HPF Ur Epithelial Cells (NOT SEEN) /HPF Urine Bacteria (0-FEW/HPF) /HPF Urine Mucus (NOT SEEN) /LPF Meds: Medications Discontinued Medications Generic Name Dose Route Start Last Admin Trade Name Mk PRN Reason Stop Dose Admin Labetalol HCl 5 mg 10/08/20 19:33 10/08/20 19:45 Labetalol 20 Mg/4 Ml Syringe IVPUSH 10/08/20 19:34 5 mg ONETIME ONE Administration Departure - Departure Time of Disposition: 20:52 Disposition: Home, Self-Care 01 Condition: Good Clinical Impression: Hypertensive heart disease Qualifiers: Heart failure presence: unspecified whether heart failure present Qualified Code(s): I11.9 - Hypertensive heart disease without heart failure Instructions: Hypertension, Adult, [id number] Referrals: PCP,None [Primary Care Provider] - Forms: ED Department Discharge Additional Instructions: light activity take home medications clinic follow up monitor BP readings follow up with primary 1-2 days Sepsis Event Note (ED) - Evaluation Sepsis Screening Result: No Definite Risk - My Orders Last 24 Hours: My Active Orders 10/08/20 19:11 CULTURE URINE [RM] Stat - Assessment/Plan Last 24 Hours: My Active Orders 10/08/20 19:11 CULTURE URINE [RM] Stat
== END 2020-10-08 21:15 | disposition home or self-care (01) ==
LOC: DL.ED 18:15
DX: I11.9 Hypertensive heart disease without heart failure (principal); J44.9 Chronic obstructive pulmonary disease, unspecified; K21.9 Gastro-esophageal reflux disease without esophagitis; M19.90 Unspecified osteoarthritis, unspecified site; I25.2 Old myocardial infarction; Z95.5 Presence of coronary angioplasty implant and graft; Z72.0 Tobacco use; Z88.8 Allergy status to other drugs, medicaments and biological substances; Z88.0 Allergy status to penicillin; Z79.82 Long term (current) use of aspirin; Z79.899 Other long term (current) drug therapy
CPT/HCPCS: 36415; 71045; 80053; 81001; 82150; 83690; 83735; 84484; 85025; 85379; 87086; 93005; 93010; 96374; 99284; 99284-25; J3490

== ENCOUNTER 2021-05-04 09:52 | Inpatient (IN) | payer MEDICARE, OTHER ==
[2021-05-04] MEDS: Sodium Chloride 0.9% 10 ML Syringe FLUSH PRN ×2 (10:14→10:23)
[2021-05-04] MEDS ORDERED: Sodium Chloride 0.9% 1,000 ML IV ONE (10:20)
[2021-05-04 10:40] LABS: ANION GAP 16.8 mEq/L (7-13)
[2021-05-04 10:41] LABS: PTT,PARTIAL THROMBOPLSTIN TIME 34.4 SEC (22.0-34.0)
[2021-05-04] MEDS ORDERED: Potassium Chloride 20 MEQ in Premix Bag 1 BAG IV ONE (10:52)
[2021-05-04] MEDS ORDERED: Lidocaine 1% 30 ML SDV INJECT ONE (10:53)
[2021-05-04 10:58] LABS: RESPIRATORY SYNCYTIAL VIR NAA NEGATIVE (NEGATIVE)
[2021-05-04 10:59] LABS: CORONAVIRUS COVID-19 NAA POSITIVE (NEGATIVE)
[2021-05-04] MEDS: Metoprolol Tartrate 50 MG Tab PO SCH ×2 (11:47→20:55)
[2021-05-04] MEDS ORDERED: Magnesium Sulfate/Water 2 GM in Premix Bag 1 BAG IV ONE (12:08)
[2021-05-04] MEDS ORDERED: Potassium Chloride 10 MEQ Tab.ER PO ONE (12:08)
[2021-05-04] MEDS ORDERED: Albuterol/Ipratropium 3.0-0.5 MG/3 ML Neb Soln NEB PRN (12:17)
[2021-05-04] MEDS ORDERED: Albuterol 6.7 GM Inhaler INH PRN (12:17)
[2021-05-04] MEDS: traMADol 50 MG Tab PO PRN (12:44)
[2021-05-04] MEDS: Dexamethasone 6 MG TABLET PO SCH (12:45)
[2021-05-04] MEDS: Apixaban 5 MG Tab PO SCH ×2 (12:45→20:55)
[2021-05-04] MEDS: NS + KCl 20mEq/L 1,000 ML IV SCH (14:31)
[2021-05-04] MEDS ORDERED: Gabapentin 100 MG Cap PO SCH (21:00)
[2021-05-04] MEDS: Ondansetron 4 MG/2 ML SDV IVPUSH PRN (22:43)
[2021-05-05] MEDS: traMADol 50 MG Tab PO PRN ×3 (00:25→17:43)
[2021-05-05] MEDS: Pantoprazole 40 MG Tab.CR PO SCH (05:37)
[2021-05-05] MEDS: NS + KCl 20mEq/L 1,000 ML IV SCH (05:41)
[2021-05-05 08:44] LABS: SODIUM,NA 138 mmol/L (136-145)
[2021-05-05 08:45] LABS: ANION GAP 13.1 mEq/L (7-13); CHLORIDE,CL 108 mmol/L (98-107)
[2021-05-05] MEDS ORDERED: Amitriptyline 25 MG Tab PO SCH (09:00)
[2021-05-05] MEDS: Aspirin 81 MG Tab.EC PO SCH (09:26)
[2021-05-05] MEDS: Apixaban 5 MG Tab PO SCH ×2 (09:26→20:29)
[2021-05-05] MEDS: Famotidine 20 MG Tab PO SCH (09:27)
[2021-05-05] MEDS: Dexamethasone 6 MG TABLET PO SCH (09:27)
[2021-05-05] MEDS: Metoprolol Tartrate 50 MG Tab PO SCH (09:30)
[2021-05-05] MEDS ORDERED: Magnesium Sulfate/Water 2 GM in Premix Bag 1 BAG IV ONE (09:49)
[2021-05-05] MEDS ORDERED: Gabapentin 300 MG Cap PO ONE (10:30)
[2021-05-05] MEDS: Gabapentin 300 MG Cap PO SCH ×2 (13:49→20:29)
[2021-05-06] MEDS: Metoprolol Tartrate 25 MG Tab PO SCH ×3 (00:20→20:23)
[2021-05-06] MEDS: traMADol 50 MG Tab PO PRN ×2 (01:52→11:49)
[2021-05-06] MEDS: Pantoprazole 40 MG Tab.CR PO SCH (05:33)
[2021-05-06 06:00] LABS: ANION GAP 12.2 mEq/L (7-13); CHLORIDE,CL 110 mmol/L (98-107); SODIUM,NA 141 mmol/L (136-145)
[2021-05-06] MEDS: Gabapentin 300 MG Cap PO SCH ×3 (08:19→20:24)
[2021-05-06] MEDS: Dexamethasone 6 MG TABLET PO SCH (08:20)
[2021-05-06] MEDS: amLODIPine 5 MG Tab PO SCH (08:20)
[2021-05-06] MEDS: Aspirin 81 MG Tab.EC PO SCH (08:20)
[2021-05-06] MEDS: Apixaban 5 MG Tab PO SCH ×2 (08:21→20:23)
[2021-05-06] MEDS: Famotidine 20 MG Tab PO SCH (08:21)
[2021-05-06] MEDS: Sodium Chloride 0.9% 10 ML Syringe FLUSH PRN ×2 (08:24→20:22)
[2021-05-06] MEDS ORDERED: Gabapentin 300 MG Cap PO ONE (16:30)
[2021-05-06] MEDS: guaiFENesin 100 MG/5 ML Soln 5 ML UD Cup PO PRN (20:23)
[2021-05-06] MEDS: Acetaminophen/HYDROcodone 325-5 MG Tab PO PRN (20:58)
[2021-05-07] MEDS: Acetaminophen/HYDROcodone 325-5 MG Tab PO PRN (04:04)
[2021-05-07] MEDS: Pantoprazole 40 MG Tab.CR PO SCH (06:28)
[2021-05-07] MEDS: Ondansetron 4 MG/2 ML SDV IVPUSH PRN (06:28)
[2021-05-07 07:00] LABS: ANION GAP 12.4 mEq/L (7-13)
[2021-05-07] MEDS: Famotidine 20 MG Tab PO SCH (09:12)
[2021-05-07] MEDS: Dexamethasone 6 MG TABLET PO SCH (09:12)
[2021-05-07] MEDS: Aspirin 81 MG Tab.EC PO SCH (09:13)
[2021-05-07] MEDS: Apixaban 5 MG Tab PO SCH ×2 (09:13→20:33)
[2021-05-07] MEDS: Gabapentin 300 MG Cap PO SCH ×3 (09:13→20:33)
[2021-05-07] MEDS: amLODIPine 5 MG Tab PO SCH (09:14)
[2021-05-07] MEDS: Sodium Chloride 0.9% 10 ML Syringe FLUSH PRN (09:16)
[2021-05-07] MEDS: Metoprolol Tartrate 25 MG Tab PO SCH ×2 (09:31→20:34)
[2021-05-07] MEDS ORDERED: Albuterol 6.7 GM Inhaler INH PRN (10:07)
[2021-05-07] MEDS: Acetaminophen/HYDROcodone 325-10 MG Tab PO PRN ×2 (11:49→21:50)
[2021-05-07] MEDS: guaiFENesin 100 MG/5 ML Soln 5 ML UD Cup PO PRN (17:15)
[2021-05-07] MEDS: Acetaminophen 325 MG Tab PO PRN (20:34)
[2021-05-07] MEDS: hydrALAZINE 20 MG/ML SDV IVPUSH PRN (23:30)
[2021-05-08] MEDS: hydrALAZINE 20 MG/ML SDV IVPUSH PRN (06:32)
[2021-05-08] MEDS: guaiFENesin 100 MG/5 ML Soln 5 ML UD Cup PO PRN ×2 (06:33→20:16)
[2021-05-08 07:07] LABS: ANION GAP 10.2 mEq/L (7-13)
[2021-05-08] MEDS: Gabapentin 300 MG Cap PO SCH ×3 (08:20→20:16)
[2021-05-08] MEDS: Apixaban 5 MG Tab PO SCH ×2 (08:20→20:16)
[2021-05-08] MEDS: Famotidine 20 MG Tab PO SCH (08:23)
[2021-05-08] MEDS: amLODIPine 5 MG Tab PO SCH (08:23)
[2021-05-08] MEDS: Metoprolol Tartrate 25 MG Tab PO SCH ×2 (08:23→20:16)
[2021-05-08] MEDS: Dexamethasone 6 MG TABLET PO SCH (08:24)
[2021-05-08] MEDS: Aspirin 81 MG Tab.EC PO SCH (08:24)
[2021-05-08] MEDS: Sodium Chloride 0.9% 10 ML Syringe FLUSH PRN ×3 (08:27→23:27)
[2021-05-08] MEDS: Acetaminophen/HYDROcodone 325-10 MG Tab PO PRN ×2 (08:28→20:17)
[2021-05-08] MEDS ORDERED: Metoprolol Succinate 25 MG Tab.ER PO SCH (09:00)
[2021-05-08] MEDS ORDERED: Furosemide 40 MG Tab PO PRN (10:37)
[2021-05-08] MEDS ORDERED: Losartan 25 MG Tab PO STA (10:38)
[2021-05-08] MEDS: Acetaminophen 325 MG Tab PO PRN (20:20)
[2021-05-08] MEDS ORDERED: Magnesium Sulfate/Water 2 GM in Premix Bag 1 BAG IV ONE (20:54)
[2021-05-09] MEDS: Sodium Chloride 0.9% 10 ML Syringe FLUSH PRN ×4 (00:55→08:29)
[2021-05-09] MEDS: hydrALAZINE 20 MG/ML SDV IVPUSH PRN (01:56)
[2021-05-09] MEDS: guaiFENesin 100 MG/5 ML Soln 5 ML UD Cup PO PRN (01:58)
[2021-05-09] MEDS: Ondansetron 4 MG/2 ML SDV IVPUSH PRN (02:39)
[2021-05-09 06:43] LABS: ANION GAP 13.8 mEq/L (7-13); CHLORIDE,CL 108 mmol/L (98-107); SODIUM,NA 143 mmol/L (136-145)
[2021-05-09] MEDS: Aspirin 81 MG Tab.EC PO SCH (08:26)
[2021-05-09] MEDS: Famotidine 20 MG Tab PO SCH (08:26)
[2021-05-09] MEDS: Gabapentin 300 MG Cap PO SCH ×2 (08:27→13:52)
[2021-05-09] MEDS: Apixaban 5 MG Tab PO SCH (08:27)
[2021-05-09] MEDS: amLODIPine 5 MG Tab PO SCH (08:28)
[2021-05-09] MEDS: Metoprolol Tartrate 25 MG Tab PO SCH (08:28)
[2021-05-09] MEDS: Dexamethasone 6 MG TABLET PO SCH (08:29)
[2021-05-09] MEDS: Acetaminophen/HYDROcodone 325-10 MG Tab PO PRN (08:33)
[2021-05-09] MEDS ORDERED: Losartan 25 MG Tab PO SCH (09:00)
[2021-05-09] MEDS ORDERED: Azithromycin 250 MG Tab PO ONE (14:00)
[2021-05-09] MEDS ORDERED: Dexamethasone 4 MG/ML SDV IVPUSH ONE (14:42)
== END 2021-05-09 16:16 | disposition home or self-care (01) | DRG 177 ==
LOC: DL.ED 09:52 → UNDOADMIN 11:21 → DL.MS 11:21 → UNDODISIN 05-09 16:16
PROVIDERS: ADMIT Internal Medicine; ATTEND Internal Medicine
PROC: 8E0ZXY6 Isolation (ICD-10-PCS; principal; 2021-05-04)
PROC: 3E0DX3Z Introduction of Anti-inflammatory into Mouth and Pharynx, External Approach (ICD-10-PCS; 2021-05-04)
DX: U07.1 COVID-19 (principal); J96.01 Acute respiratory failure with hypoxia; A08.39 Other viral enteritis; N17.9 Acute kidney failure, unspecified; I48.91 Unspecified atrial fibrillation; J44.9 Chronic obstructive pulmonary disease, unspecified; I25.10 Atherosclerotic heart disease of native coronary artery without angina pectoris; K21.9 Gastro-esophageal reflux disease without esophagitis; M19.90 Unspecified osteoarthritis, unspecified site; Z96.653 Presence of artificial knee joint, bilateral; K80.20 Calculus of gallbladder without cholecystitis without obstruction; E86.0 Dehydration; E87.6 Hypokalemia; E83.42 Hypomagnesemia; Z86.73 Personal history of transient ischemic attack (TIA), and cerebral infarction without residual deficits; Z88.0 Allergy status to penicillin; Z88.8 Allergy status to other drugs, medicaments and biological substances; Z79.82 Long term (current) use of aspirin; Z79.52 Long term (current) use of systemic steroids; Z79.899 Other long term (current) drug therapy; I25.2 Old myocardial infarction; Z95.5 Presence of coronary angioplasty implant and graft; Z87.440 Personal history of urinary (tract) infections; Z90.49 Acquired absence of other specified parts of digestive tract; Z98.41 Cataract extraction status, right eye; Z98.42 Cataract extraction status, left eye; Z28.82 Immunization not carried out because of caregiver refusal
CPT/HCPCS: 0241U; 36415; 71045; 80048; 80053; 81001; 82150; 82272; 82947; 83605; 83690; 83735; 83880; 84100; 84443; 84484; 85025; 85027; 85379; 85610; 85730; 87040; 93005; 96374; 97165; 97530; 99285; 87046; 93010; 99284; A9270-GY; J0360; J2405; J3475; J3480; J7030; J8540

== ENCOUNTER 2022-02-19 10:05 | Emergency (ER) | payer MEDICARE, OTHER ==
[2022-02-19] MEDS ORDERED: Sodium Chloride 0.9% 10 ML Syringe FLUSH PRN (10:39)
[2022-02-19] MEDS ORDERED: Albuterol/Ipratropium 3.0-0.5 MG/3 ML Neb Soln NEB ONE (10:40)
[2022-02-19] MEDS ORDERED: Magnesium Sulfate/Water 2 GM in Premix Bag 1 BAG IV ONE (10:40)
[2022-02-19 11:11] LABS: ANION GAP 12.4 mEq/L (7-13); CHLORIDE,CL 103 mmol/L (98-107); SODIUM,NA 138 mmol/L (136-145)
[2022-02-19 11:12] LABS: ESTIMATED GFR 62 mL/min (>=60)
[2022-02-19] MEDS ORDERED: methylPREDNISolone Sodium Succinate 125 MG/2 ML SDV IVPUSH ONE (11:24)
== END 2022-02-19 11:42 | disposition home or self-care (01) ==
LOC: DL.ED 10:05
DX: J45.901 Unspecified asthma with (acute) exacerbation (principal); F17.210 Nicotine dependence, cigarettes, uncomplicated; I25.2 Old myocardial infarction; E66.9 Obesity, unspecified; M19.90 Unspecified osteoarthritis, unspecified site; Z79.82 Long term (current) use of aspirin; Z79.899 Other long term (current) drug therapy; Z68.37 Body mass index [BMI] 37.0-37.9, adult; Z86.73 Personal history of transient ischemic attack (TIA), and cerebral infarction without residual deficits; Z88.0 Allergy status to penicillin
CPT/HCPCS: 36415; 71045; 80053; 83735; 83880; 85025; 86140; 96365; 96375; 99285; J2930; J3475; J3490; J7620-GY

== ENCOUNTER 2022-02-20 09:40 | Inpatient (IN) | payer MEDICARE, OTHER ==
[2022-02-20] MEDS ORDERED: Albuterol/Ipratropium 3.0-0.5 MG/3 ML Neb Soln NEB ONE (09:42)
[2022-02-20] MEDS ORDERED: methylPREDNISolone Sodium Succinate 125 MG/2 ML SDV IVPUSH ONE (09:43)
[2022-02-20 10:30] LABS: ANION GAP 11.8 mEq/L (7-13)
[2022-02-20 10:47] LABS: CORONAVIRUS COVID-19 NAA NEGATIVE (NEGATIVE); RESPIRATORY SYNCYTIAL VIR NAA POSITIVE (NEGATIVE)
[2022-02-20] MEDS ORDERED: Acetaminophen 325 MG Tab PO PRN (13:45)
[2022-02-20] MEDS ORDERED: Bisacodyl 5 MG Tab PO PRN (13:46)
[2022-02-20] MEDS ORDERED: Polyethylene Glycol 3350 Powder 17 GM Packet PO PRN (13:46)
[2022-02-20] MEDS ORDERED: Magnesium Hydroxide 400 MG/5 ML Susp 30 ML Cup PO PRN (13:46)
[2022-02-20] MEDS ORDERED: Sodium Chloride 0.9% 10 ML Syringe FLUSH PRN (13:46)
[2022-02-20] MEDS ORDERED: Albuterol/Ipratropium 3.0-0.5 MG/3 ML Neb Soln NEB PRN (13:46)
[2022-02-20] MEDS ORDERED: Ondansetron 4 MG/2 ML SDV IVPUSH PRN (13:46)
[2022-02-20] MEDS ORDERED: hydrALAZINE 20 MG/ML SDV IVPUSH PRN (13:52)
[2022-02-20] MEDS ORDERED: Metoprolol Tartrate 5 MG/5 ML SDV IVPUSH PRN (13:52)
[2022-02-20] MEDS ORDERED: guaiFENesin/Dextromethorphan 100-10 MG/5 ML Soln 5 ML Cup PO PRN (13:53)
[2022-02-20] MEDS ORDERED: Acetaminophen 500 MG Tab PO PRN (13:54)
[2022-02-20] MEDS: Gabapentin 300 MG Cap PO SCH (15:15)
[2022-02-20] MEDS: Sodium Chloride 0.9% 1,000 ML IV SCH (15:18)
[2022-02-20] MEDS ORDERED: Ziprasidone Mesylate 20 MG Vial IM ONE (15:33)
[2022-02-20] MEDS ORDERED: Water For Injection, Sterile 10 ML ONE (15:38)
[2022-02-20] MEDS ORDERED: Magnesium Sulfate/Water 2 GM in Premix Bag 1 BAG IV ONE (16:00)
[2022-02-20] MEDS ORDERED: Azithromycin 500 MG in Sodium Chloride 0.9% 250 ML IV ONE (16:00)
[2022-02-20 16:54] LABS: O2 DELIVERY DEVICE NASAL CANNULA
[2022-02-20 17:00] LABS: BASE EXCESS ARTERIAL -5 mmol/L ((-2)-(+3)); BICARBONATE,ARTERIAL 20.7 mmol/L (22-26); O2 SATURATION ARTERIAL 96 % (95-100); PCO2 ARTERIAL 43 mmHg (35-45); PO2 ARTERIAL 71 mmHg (70-100)
[2022-02-20 17:01] LABS: ALLEN TEST PERFMORED
[2022-02-20] MEDS: Formoterol/Mometasone 200-5 MCG 8.8 GM Inhaler IH SCH (17:07)
[2022-02-20] MEDS: methylPREDNISolone Sodium Succinate 125 MG/2 ML SDV IVPUSH SCH (17:07)
[2022-02-20] MEDS: Albuterol/Ipratropium 3.0-0.5 MG/3 ML Neb Soln NEB SCH (19:24)
[2022-02-20] MEDS ORDERED: 50% Dextrose in Water 50 ML Syringe IVPUSH PRN (22:41)
[2022-02-20] MEDS ORDERED: Glucagon,Human Recombinant 1 MG Vial IM PRN (22:41)
[2022-02-21] MEDS: methylPREDNISolone Sodium Succinate 125 MG/2 ML SDV IVPUSH SCH ×5 (01:17→17:29)
[2022-02-21] MEDS: guaiFENesin 600 MG Tab.ER PO SCH ×3 (01:17→21:13)
[2022-02-21] MEDS: Apixaban 5 MG Tab PO SCH ×3 (01:17→21:12)
[2022-02-21] MEDS: Gabapentin 300 MG Cap PO SCH ×4 (01:17→21:13)
[2022-02-21] MEDS: Famotidine 20 MG Tab PO SCH ×3 (01:17→21:12)
[2022-02-21] MEDS: Morphine 15 MG Tab.ER PO SCH ×3 (03:06→21:12)
[2022-02-21] MEDS: DULoxetine 30 MG Cap PO SCH ×2 (03:06→21:11)
[2022-02-21] MEDS: Sodium Chloride 0.9% 10 ML Syringe FLUSH SCH ×3 (03:07→22:13)
[2022-02-21 07:28] LABS: ANION GAP 15.1 mEq/L (7-13); CHLORIDE,CL 104 mmol/L (98-107); SODIUM,NA 138 mmol/L (136-145)
[2022-02-21 07:30] LABS: ESTIMATED GFR 57 mL/min (>=60)
[2022-02-21] MEDS: amLODIPine 5 MG Tab PO SCH (08:13)
[2022-02-21] MEDS: Metoprolol Tartrate 25 MG Tab PO SCH (08:13)
[2022-02-21] MEDS: Aspirin 81 MG Tab.EC PO SCH (08:14)
[2022-02-21] MEDS: Saccharomyces Boulardii (Probiotic) 250 MG Cap PO SCH (08:14)
[2022-02-21] MEDS: Albuterol/Ipratropium 3.0-0.5 MG/3 ML Neb Soln NEB SCH ×2 (08:15→21:11)
[2022-02-21] MEDS: Formoterol/Mometasone 200-5 MCG 8.8 GM Inhaler IH SCH ×2 (08:19→17:36)
[2022-02-21] MEDS: Insulin Lispro 100 Units/ML 3 ML Vial SUBCUT SCH ×3 (08:27→17:27)
[2022-02-21] MEDS: Sodium Chloride 0.9% 10 ML Syringe FLUSH PRN ×2 (08:36→17:28)
[2022-02-21] MEDS: Sodium Chloride 0.9% 1,000 ML IV SCH (08:37)
[2022-02-21] MEDS: Azithromycin 500 MG in Sodium Chloride 0.9% 250 ML IV SCH (08:37)
[2022-02-21] MEDS: Acetaminophen/HYDROcodone 325-5 MG Tab PO PRN ×2 (11:11→17:35)
[2022-02-21] MEDS: Nicotine 21 MG/24 Hr Patch TRDERM SCH (21:14)
[2022-02-21] MEDS ORDERED: Water For Injection, Sterile 10 ML ONE (21:46)
[2022-02-21] MEDS: Ziprasidone Mesylate 20 MG Vial IM PRN (22:38)
[2022-02-22] MEDS: Sodium Chloride 0.9% 1,000 ML IV SCH (00:13)
[2022-02-22] MEDS: methylPREDNISolone Sodium Succinate 125 MG/2 ML SDV IVPUSH SCH ×4 (00:15→17:53)
[2022-02-22] MEDS: Acetaminophen/HYDROcodone 325-5 MG Tab PO PRN (06:37)
[2022-02-22 07:13] LABS: CHLORIDE,CL 107 mmol/L (98-107); ESTIMATED GFR 73 mL/min (>=60); SODIUM,NA 139 mmol/L (136-145)
[2022-02-22] MEDS: Saccharomyces Boulardii (Probiotic) 250 MG Cap PO SCH (08:07)
[2022-02-22] MEDS: Gabapentin 300 MG Cap PO SCH ×3 (08:07→20:42)
[2022-02-22] MEDS: amLODIPine 5 MG Tab PO SCH (08:08)
[2022-02-22] MEDS: Aspirin 81 MG Tab.EC PO SCH (08:08)
[2022-02-22] MEDS: Apixaban 5 MG Tab PO SCH ×2 (08:08→20:42)
[2022-02-22] MEDS: Famotidine 20 MG Tab PO SCH ×2 (08:08→20:41)
[2022-02-22] MEDS: Metoprolol Tartrate 25 MG Tab PO SCH (08:08)
[2022-02-22] MEDS: guaiFENesin 600 MG Tab.ER PO SCH ×2 (08:08→20:41)
[2022-02-22] MEDS: Morphine 15 MG Tab.ER PO SCH ×2 (08:09→20:42)
[2022-02-22] MEDS: Albuterol/Ipratropium 3.0-0.5 MG/3 ML Neb Soln NEB SCH ×2 (08:11→18:31)
[2022-02-22] MEDS: Insulin Lispro 100 Units/ML 3 ML Vial SUBCUT SCH ×3 (08:14→16:39)
[2022-02-22] MEDS: Nicotine 21 MG/24 Hr Patch TRDERM SCH (08:16)
[2022-02-22] MEDS: Formoterol/Mometasone 200-5 MCG 8.8 GM Inhaler IH SCH ×2 (08:16→17:48)
[2022-02-22] MEDS: Sodium Chloride 0.9% 10 ML Syringe FLUSH SCH (08:17)
[2022-02-22] MEDS: Azithromycin 500 MG in Sodium Chloride 0.9% 250 ML IV SCH (09:01)
[2022-02-22] MEDS ORDERED: Water For Injection, Sterile 10 ML ONE (20:19)
[2022-02-22] MEDS: Ziprasidone Mesylate 20 MG Vial IM PRN (20:41)
[2022-02-22] MEDS: DULoxetine 30 MG Cap PO SCH (20:41)
[2022-02-23] MEDS: methylPREDNISolone Sodium Succinate 125 MG/2 ML SDV IVPUSH SCH ×4 (00:20→17:22)
[2022-02-23] MEDS: Sodium Chloride 0.9% 10 ML Syringe FLUSH SCH ×3 (00:20→21:53)
[2022-02-23 07:26] LABS: ANION GAP 13.3 mEq/L (7-13); CHLORIDE,CL 108 mmol/L (98-107); SODIUM,NA 141 mmol/L (136-145)
[2022-02-23 07:27] LABS: ESTIMATED GFR 77 mL/min (>=60)
[2022-02-23] MEDS: Formoterol/Mometasone 200-5 MCG 8.8 GM Inhaler IH SCH ×2 (07:34→17:26)
[2022-02-23] MEDS: Saccharomyces Boulardii (Probiotic) 250 MG Cap PO SCH (08:22)
[2022-02-23] MEDS: Famotidine 20 MG Tab PO SCH ×2 (08:22→21:50)
[2022-02-23] MEDS: amLODIPine 5 MG Tab PO SCH (08:23)
[2022-02-23] MEDS: Metoprolol Tartrate 25 MG Tab PO SCH (08:24)
[2022-02-23] MEDS: Apixaban 5 MG Tab PO SCH ×2 (08:25→21:50)
[2022-02-23] MEDS: guaiFENesin 600 MG Tab.ER PO SCH ×2 (08:25→21:49)
[2022-02-23] MEDS: Nicotine 21 MG/24 Hr Patch TRDERM SCH (08:25)
[2022-02-23] MEDS: Aspirin 81 MG Tab.EC PO SCH (08:25)
[2022-02-23] MEDS: Gabapentin 300 MG Cap PO SCH ×3 (08:25→21:50)
[2022-02-23] MEDS: Insulin Lispro 100 Units/ML 3 ML Vial SUBCUT SCH ×3 (08:25→17:26)
[2022-02-23] MEDS: Morphine 15 MG Tab.ER PO SCH ×2 (08:26→21:49)
[2022-02-23] MEDS: Azithromycin 500 MG in Sodium Chloride 0.9% 250 ML IV SCH (08:28)
[2022-02-23] MEDS: Sodium Chloride 0.9% 10 ML Syringe FLUSH PRN (17:23)
[2022-02-23] MEDS ORDERED: Water For Injection, Sterile 10 ML ONE (21:38)
[2022-02-23] MEDS: DULoxetine 30 MG Cap PO SCH (21:49)
[2022-02-23] MEDS: Ziprasidone Mesylate 20 MG Vial IM PRN (21:55)
[2022-02-24] MEDS: methylPREDNISolone Sodium Succinate 125 MG/2 ML SDV IVPUSH SCH ×4 (00:55→21:42)
[2022-02-24] MEDS: Acetaminophen/HYDROcodone 325-5 MG Tab PO PRN (01:14)
[2022-02-24] MEDS: Formoterol/Mometasone 200-5 MCG 8.8 GM Inhaler IH SCH ×2 (06:23→17:13)
[2022-02-24 07:04] LABS: ANION GAP 12.7 mEq/L (7-13); CHLORIDE,CL 107 mmol/L (98-107); SODIUM,NA 140 mmol/L (136-145)
[2022-02-24 07:06] LABS: ESTIMATED GFR 73 mL/min (>=60)
[2022-02-24] MEDS: Azithromycin 500 MG in Sodium Chloride 0.9% 250 ML IV SCH (09:02)
[2022-02-24] MEDS: Sodium Chloride 0.9% 10 ML Syringe FLUSH SCH ×2 (09:06→21:23)
[2022-02-24] MEDS: Famotidine 20 MG Tab PO SCH ×2 (09:07→21:20)
[2022-02-24] MEDS: Apixaban 5 MG Tab PO SCH ×2 (09:08→21:20)
[2022-02-24] MEDS: guaiFENesin 600 MG Tab.ER PO SCH ×2 (09:09→21:20)
[2022-02-24] MEDS: amLODIPine 5 MG Tab PO SCH (09:09)
[2022-02-24] MEDS: Gabapentin 300 MG Cap PO SCH (09:09)
[2022-02-24] MEDS: Metoprolol Tartrate 25 MG Tab PO SCH (09:09)
[2022-02-24] MEDS: Aspirin 81 MG Tab.EC PO SCH (09:10)
[2022-02-24] MEDS: Morphine 15 MG Tab.ER PO SCH ×2 (09:10→21:33)
[2022-02-24] MEDS: Insulin Lispro 100 Units/ML 3 ML Vial SUBCUT SCH ×3 (09:11→17:11)
[2022-02-24] MEDS: Saccharomyces Boulardii (Probiotic) 250 MG Cap PO SCH (09:11)
[2022-02-24] MEDS: Nicotine 21 MG/24 Hr Patch TRDERM SCH (09:14)
[2022-02-24] MEDS: Gabapentin 100 MG Cap PO SCH ×2 (13:34→21:20)
[2022-02-24] MEDS: Sodium Chloride 0.9% 10 ML Syringe FLUSH PRN ×3 (13:36→18:17)
[2022-02-24] MEDS: Morphine 2 MG/ML SYRINGE IVPUSH PRN (18:14)
[2022-02-24] MEDS: Ziprasidone Mesylate 20 MG Vial IM PRN (18:17)
[2022-02-24] MEDS: DULoxetine 30 MG Cap PO SCH (21:21)
[2022-02-25] MEDS: Ziprasidone Mesylate 20 MG Vial IM PRN ×2 (03:45→21:53)
[2022-02-25] MEDS: methylPREDNISolone Sodium Succinate 125 MG/2 ML SDV IVPUSH SCH ×3 (05:49→21:55)
[2022-02-25] MEDS: Morphine 2 MG/ML SYRINGE IVPUSH PRN ×2 (08:15→12:32)
[2022-02-25] MEDS: Sodium Chloride 0.9% 10 ML Syringe FLUSH SCH ×2 (08:19→21:53)
[2022-02-25] MEDS: Azithromycin 500 MG in Sodium Chloride 0.9% 250 ML IV SCH (08:21)
[2022-02-25] MEDS: Sodium Chloride 0.9% 10 ML Syringe FLUSH PRN ×3 (08:21→14:12)
[2022-02-25] MEDS: Saccharomyces Boulardii (Probiotic) 250 MG Cap PO SCH (08:22)
[2022-02-25] MEDS: Morphine 15 MG Tab.ER PO SCH ×2 (08:32→21:49)
[2022-02-25] MEDS: amLODIPine 5 MG Tab PO SCH (08:32)
[2022-02-25] MEDS: Gabapentin 100 MG Cap PO SCH ×3 (08:32→21:47)
[2022-02-25] MEDS: guaiFENesin 600 MG Tab.ER PO SCH ×2 (08:32→21:47)
[2022-02-25] MEDS: Metoprolol Tartrate 25 MG Tab PO SCH (08:33)
[2022-02-25] MEDS: Famotidine 20 MG Tab PO SCH ×2 (08:33→21:51)
[2022-02-25] MEDS: Apixaban 5 MG Tab PO SCH ×2 (08:33→21:51)
[2022-02-25] MEDS: Aspirin 81 MG Tab.EC PO SCH (08:33)
[2022-02-25] MEDS: Formoterol/Mometasone 200-5 MCG 8.8 GM Inhaler IH SCH ×2 (08:35→17:03)
[2022-02-25] MEDS: Insulin Lispro 100 Units/ML 3 ML Vial SUBCUT SCH ×3 (08:38→17:03)
[2022-02-25] MEDS: Nicotine 21 MG/24 Hr Patch TRDERM SCH (08:39)
[2022-02-25] MEDS: DULoxetine 30 MG Cap PO SCH (21:50)
[2022-02-26] MEDS: methylPREDNISolone Sodium Succinate 125 MG/2 ML SDV IVPUSH SCH ×3 (06:05→21:51)
[2022-02-26] MEDS: Formoterol/Mometasone 200-5 MCG 8.8 GM Inhaler IH SCH ×2 (06:11→17:11)
[2022-02-26] MEDS: Insulin Lispro 100 Units/ML 3 ML Vial SUBCUT SCH ×3 (09:43→17:19)
[2022-02-26] MEDS: Aspirin 81 MG Tab.EC PO SCH (09:45)
[2022-02-26] MEDS: Gabapentin 100 MG Cap PO SCH ×3 (09:45→21:50)
[2022-02-26] MEDS: Apixaban 5 MG Tab PO SCH ×2 (09:45→21:50)
[2022-02-26] MEDS: Famotidine 20 MG Tab PO SCH ×2 (09:45→21:50)
[2022-02-26] MEDS: Morphine 15 MG Tab.ER PO SCH ×2 (09:46→21:50)
[2022-02-26] MEDS: guaiFENesin 600 MG Tab.ER PO SCH ×2 (09:46→21:50)
[2022-02-26] MEDS: Sodium Chloride 0.9% 10 ML Syringe FLUSH SCH ×2 (09:47→21:51)
[2022-02-26] MEDS: Nicotine 21 MG/24 Hr Patch TRDERM SCH (09:48)
[2022-02-26] MEDS: amLODIPine 5 MG Tab PO SCH (09:49)
[2022-02-26] MEDS: Metoprolol Tartrate 25 MG Tab PO SCH (09:49)
[2022-02-26] MEDS: Sodium Chloride 0.9% 10 ML Syringe FLUSH PRN (13:59)
[2022-02-26] MEDS: DULoxetine 30 MG Cap PO SCH (21:50)
[2022-02-27] MEDS: methylPREDNISolone Sodium Succinate 125 MG/2 ML SDV IVPUSH SCH ×3 (05:46→21:26)
[2022-02-27 07:06] LABS: ANION GAP 11.1 mEq/L (7-13)
[2022-02-27] MEDS: Formoterol/Mometasone 200-5 MCG 8.8 GM Inhaler IH SCH ×2 (07:46→17:15)
[2022-02-27] MEDS: Insulin Lispro 100 Units/ML 3 ML Vial SUBCUT SCH ×3 (07:46→17:15)
[2022-02-27] MEDS: amLODIPine 5 MG Tab PO SCH (08:12)
[2022-02-27] MEDS: Aspirin 81 MG Tab.EC PO SCH (08:13)
[2022-02-27] MEDS: Famotidine 20 MG Tab PO SCH ×2 (08:13→21:19)
[2022-02-27] MEDS: Apixaban 5 MG Tab PO SCH ×2 (08:13→21:18)
[2022-02-27] MEDS: Metoprolol Tartrate 25 MG Tab PO SCH (08:13)
[2022-02-27] MEDS: guaiFENesin 600 MG Tab.ER PO SCH ×2 (08:14→21:19)
[2022-02-27] MEDS: Gabapentin 100 MG Cap PO SCH ×3 (08:14→21:18)
[2022-02-27] MEDS: Morphine 15 MG Tab.ER PO SCH ×2 (08:15→21:19)
[2022-02-27] MEDS: Nicotine 21 MG/24 Hr Patch TRDERM SCH (08:17)
[2022-02-27] MEDS: Sodium Chloride 0.9% 10 ML Syringe FLUSH SCH ×2 (08:17→21:26)
[2022-02-27] MEDS: Losartan 50 MG Tab PO SCH (08:56)
[2022-02-27] MEDS: Furosemide 20 MG Tab PO SCH (08:56)
[2022-02-27] MEDS: Sodium Chloride 0.9% 10 ML Syringe FLUSH PRN (14:37)
[2022-02-27] MEDS: DULoxetine 30 MG Cap PO SCH (21:18)
[2022-02-28] MEDS: Formoterol/Mometasone 200-5 MCG 8.8 GM Inhaler IH SCH ×2 (06:13→17:59)
[2022-02-28] MEDS: Sodium Chloride 0.9% 10 ML Syringe FLUSH PRN (06:14)
[2022-02-28] MEDS: methylPREDNISolone Sodium Succinate 125 MG/2 ML SDV IVPUSH SCH ×3 (06:15→23:04)
[2022-02-28] MEDS: Apixaban 5 MG Tab PO SCH ×2 (08:16→23:00)
[2022-02-28] MEDS: Famotidine 20 MG Tab PO SCH ×2 (08:16→23:00)
[2022-02-28] MEDS: guaiFENesin 600 MG Tab.ER PO SCH ×2 (08:16→23:00)
[2022-02-28] MEDS: Aspirin 81 MG Tab.EC PO SCH (08:17)
[2022-02-28] MEDS: amLODIPine 5 MG Tab PO SCH (08:17)
[2022-02-28] MEDS: Morphine 15 MG Tab.ER PO SCH ×2 (08:17→23:00)
[2022-02-28] MEDS: Metoprolol Tartrate 25 MG Tab PO SCH (08:18)
[2022-02-28] MEDS: Losartan 50 MG Tab PO SCH (08:19)
[2022-02-28] MEDS: Furosemide 20 MG Tab PO SCH (08:19)
[2022-02-28] MEDS: Gabapentin 100 MG Cap PO SCH ×3 (08:19→22:59)
[2022-02-28] MEDS: Insulin Lispro 100 Units/ML 3 ML Vial SUBCUT SCH ×3 (08:20→17:57)
[2022-02-28] MEDS: Sodium Chloride 0.9% 10 ML Syringe FLUSH SCH ×2 (08:22→23:04)
[2022-02-28] MEDS: Nicotine 21 MG/24 Hr Patch TRDERM SCH (08:23)
[2022-02-28] MEDS: DULoxetine 30 MG Cap PO SCH (22:59)
[2022-03-01] MEDS: methylPREDNISolone Sodium Succinate 125 MG/2 ML SDV IVPUSH SCH (06:11)
[2022-03-01] MEDS: Sodium Chloride 0.9% 10 ML Syringe FLUSH PRN (06:11)
[2022-03-01] MEDS: Formoterol/Mometasone 200-5 MCG 8.8 GM Inhaler IH SCH (06:15)
[2022-03-01 07:16] LABS: ANION GAP 13.8 mEq/L (7-13)
[2022-03-01] MEDS: Insulin Lispro 100 Units/ML 3 ML Vial SUBCUT SCH (08:49)
[2022-03-01] MEDS: Gabapentin 100 MG Cap PO SCH (08:52)
[2022-03-01] MEDS: Apixaban 5 MG Tab PO SCH (08:52)
[2022-03-01] MEDS: Aspirin 81 MG Tab.EC PO SCH (08:53)
[2022-03-01] MEDS: Losartan 50 MG Tab PO SCH (08:53)
[2022-03-01] MEDS: Furosemide 20 MG Tab PO SCH (08:53)
[2022-03-01] MEDS: Metoprolol Tartrate 25 MG Tab PO SCH (08:54)
[2022-03-01] MEDS: guaiFENesin 600 MG Tab.ER PO SCH (08:54)
[2022-03-01] MEDS: amLODIPine 5 MG Tab PO SCH (08:54)
[2022-03-01] MEDS: Morphine 15 MG Tab.ER PO SCH (08:55)
[2022-03-01] MEDS: Famotidine 20 MG Tab PO SCH (08:56)
[2022-03-01] MEDS: Nicotine 21 MG/24 Hr Patch TRDERM SCH (08:58)
== END 2022-03-01 09:18 | disposition swing bed (61) | DRG 189 ==
LOC: DL.ED 09:40 → DL.MS 11:34
PROVIDERS: ADMIT Internal Medicine; ATTEND Internal Medicine
PROC: 5A09357 Assistance with Respiratory Ventilation, Less than 24 Consecutive Hours, Continuous Positive Airway Pressure (ICD-10-PCS; principal; 2022-02-20)
DX: J96.21 Acute and chronic respiratory failure with hypoxia (principal); J44.1 Chronic obstructive pulmonary disease with (acute) exacerbation; E87.20 Acidosis, unspecified; I25.2 Old myocardial infarction; Z95.5 Presence of coronary angioplasty implant and graft; B97.4 Respiratory syncytial virus as the cause of diseases classified elsewhere; D50.9 Iron deficiency anemia, unspecified; Z66 Do not resuscitate; H54.7 Unspecified visual loss; Z20.822 Contact with and (suspected) exposure to COVID-19; Z79.01 Long term (current) use of anticoagulants; T38.0X5A Adverse effect of glucocorticoids and synthetic analogues, initial encounter; I10 Essential (primary) hypertension; E66.9 Obesity, unspecified; R73.9 Hyperglycemia, unspecified; E88.09 Other disorders of plasma-protein metabolism, not elsewhere classified; I25.10 Atherosclerotic heart disease of native coronary artery without angina pectoris; N28.9 Disorder of kidney and ureter, unspecified; K21.9 Gastro-esophageal reflux disease without esophagitis; M19.90 Unspecified osteoarthritis, unspecified site; Z96.653 Presence of artificial knee joint, bilateral; F17.210 Nicotine dependence, cigarettes, uncomplicated; Z86.73 Personal history of transient ischemic attack (TIA), and cerebral infarction without residual deficits; Z87.440 Personal history of urinary (tract) infections; Z88.0 Allergy status to penicillin; Z88.8 Allergy status to other drugs, medicaments and biological substances; Z79.82 Long term (current) use of aspirin; Z79.899 Other long term (current) drug therapy; Z90.49 Acquired absence of other specified parts of digestive tract; Z86.16 Personal history of COVID-19
CPT/HCPCS: 0241U; 36415; 36600; 71045; 80048; 80053; 80061; 82803; 82947; 83605; 83735; 83880; 84484; 85025; 86140; 87040; 93005; 94640; 94660; 96374; 97110; 97161; 97165; 97530; 97535; 99285; A9270-GY; J0456; J1815-GY; J2270; J2930; J3475; J3486; J3490; J7030; J7050; J7620-GY

== ENCOUNTER 2022-02-28 11:00 | Inpatient (IN) | payer MEDICARE, OTHER ==
[2022-03-01] MEDS ORDERED: Acetaminophen/HYDROcodone 325-5 MG Tab PO PRN (09:14)
[2022-03-01] MEDS ORDERED: Acetaminophen 500 MG Tab PO PRN (09:14)
[2022-03-01] MEDS ORDERED: Sodium Chloride 0.9% 10 ML Syringe FLUSH PRN ×2 (09:14)
[2022-03-01] MEDS ORDERED: Morphine 2 MG/ML SYRINGE IVPUSH PRN (09:14)
[2022-03-01] MEDS ORDERED: Bisacodyl 5 MG Tab PO PRN (09:14)
[2022-03-01] MEDS ORDERED: 50% Dextrose in Water 50 ML Syringe IVPUSH PRN (09:14)
[2022-03-01] MEDS ORDERED: Polyethylene Glycol 3350 Powder 17 GM Packet PO PRN (09:14)
[2022-03-01] MEDS ORDERED: Glucagon,Human Recombinant 1 MG Vial IM PRN ×2 (09:14)
[2022-03-01] MEDS ORDERED: Ziprasidone Mesylate 20 MG Vial IM PRN (09:14)
[2022-03-01] MEDS ORDERED: Magnesium Hydroxide 400 MG/5 ML Susp 30 ML Cup PO PRN (09:14)
[2022-03-01] MEDS ORDERED: Albuterol/Ipratropium 3.0-0.5 MG/3 ML Neb Soln NEB PRN (09:14)
[2022-03-01] MEDS ORDERED: guaiFENesin/Dextromethorphan 100-10 MG/5 ML Soln 5 ML Cup PO PRN (09:14)
[2022-03-01] MEDS ORDERED: Ondansetron 4 MG/2 ML SDV IVPUSH PRN (09:14)
[2022-03-01] MEDS ORDERED: Metoprolol Tartrate 5 MG/5 ML SDV IVPUSH PRN (09:14)
[2022-03-01] MEDS: Insulin Lispro 100 Units/ML 3 ML Vial SUBCUT SCH ×2 (12:39→17:15)
[2022-03-01] MEDS: Gabapentin 100 MG Cap PO SCH ×2 (14:34→21:07)
[2022-03-01] MEDS: Formoterol/Mometasone 200-5 MCG 8.8 GM Inhaler IH SCH (17:16)
[2022-03-01] MEDS ORDERED: Sodium Chloride 0.9% 10 ML Syringe FLUSH SCH (21:00)
[2022-03-01] MEDS: DULoxetine 30 MG Cap PO SCH (21:06)
[2022-03-01] MEDS: guaiFENesin 600 MG Tab.ER PO SCH (21:06)
[2022-03-01] MEDS: Morphine 15 MG Tab.ER PO SCH (21:06)
[2022-03-01] MEDS: Apixaban 5 MG Tab PO SCH (21:06)
[2022-03-01] MEDS: Sodium Chloride 0.9% 10 ML Syringe FLUSH SCH (21:07)
[2022-03-02] MEDS: Formoterol/Mometasone 200-5 MCG 8.8 GM Inhaler IH SCH ×2 (06:16→17:14)
[2022-03-02] MEDS: amLODIPine 5 MG Tab PO SCH (08:16)
[2022-03-02] MEDS: Gabapentin 100 MG Cap PO SCH ×3 (08:17→23:10)
[2022-03-02] MEDS: guaiFENesin 600 MG Tab.ER PO SCH ×2 (08:17→23:09)
[2022-03-02] MEDS: Furosemide 20 MG Tab PO SCH (08:17)
[2022-03-02] MEDS: Aspirin 81 MG Tab.EC PO SCH (08:17)
[2022-03-02] MEDS: Losartan 50 MG Tab PO SCH (08:17)
[2022-03-02] MEDS: Morphine 15 MG Tab.ER PO SCH ×2 (08:18→23:15)
[2022-03-02] MEDS: Apixaban 5 MG Tab PO SCH ×2 (08:18→23:15)
[2022-03-02] MEDS: Metoprolol Tartrate 25 MG Tab PO SCH (08:19)
[2022-03-02] MEDS: Nicotine 21 MG/24 Hr Patch TRDERM SCH (08:20)
[2022-03-02] MEDS: Insulin Lispro 100 Units/ML 3 ML Vial SUBCUT SCH (08:20)
[2022-03-02] MEDS: Sodium Chloride 0.9% 10 ML Syringe FLUSH SCH ×2 (08:21→23:16)
[2022-03-02] MEDS ORDERED: Famotidine 20 MG Tab PO SCH (09:00)
[2022-03-02] MEDS ORDERED: predniSONE 10 MG Tab PO ONE (11:00)
[2022-03-02] MEDS ORDERED: predniSONE 20 MG Tab PO ONE (11:00)
[2022-03-02] MEDS: DULoxetine 30 MG Cap PO SCH (23:09)
[2022-03-02] MEDS: Famotidine 20 MG Tab PO SCH (23:09)
[2022-03-03] MEDS: Formoterol/Mometasone 200-5 MCG 8.8 GM Inhaler IH SCH ×2 (06:12→17:49)
[2022-03-03] MEDS: Losartan 50 MG Tab PO SCH (08:59)
[2022-03-03] MEDS: guaiFENesin 600 MG Tab.ER PO SCH ×2 (08:59→20:13)
[2022-03-03] MEDS: Gabapentin 100 MG Cap PO SCH ×3 (08:59→20:13)
[2022-03-03] MEDS: amLODIPine 5 MG Tab PO SCH (09:00)
[2022-03-03] MEDS: Furosemide 20 MG Tab PO SCH (09:00)
[2022-03-03] MEDS: Metoprolol Tartrate 25 MG Tab PO SCH (09:00)
[2022-03-03] MEDS: Morphine 15 MG Tab.ER PO SCH ×2 (09:00→20:13)
[2022-03-03] MEDS: predniSONE 20 MG Tab PO SCH (09:00)
[2022-03-03] MEDS: Apixaban 5 MG Tab PO SCH ×2 (09:00→20:13)
[2022-03-03] MEDS: Famotidine 20 MG Tab PO SCH ×2 (09:01→20:13)
[2022-03-03] MEDS: Nicotine 21 MG/24 Hr Patch TRDERM SCH (09:01)
[2022-03-03] MEDS: Aspirin 81 MG Tab.EC PO SCH (09:01)
[2022-03-03] MEDS: Sodium Chloride 0.9% 10 ML Syringe FLUSH SCH ×2 (09:02→20:14)
[2022-03-03] MEDS: DULoxetine 30 MG Cap PO SCH (20:13)
[2022-03-04] MEDS ORDERED: Metoprolol Tartrate 25 MG Tab PO SCH (09:00)
[2022-03-04] MEDS ORDERED: amLODIPine 5 MG Tab PO SCH (09:00)
[2022-03-04] MEDS: Formoterol/Mometasone 200-5 MCG 8.8 GM Inhaler IH SCH ×2 (09:59→17:48)
[2022-03-04] MEDS: predniSONE 20 MG Tab PO SCH (09:59)
[2022-03-04] MEDS: Morphine 15 MG Tab.ER PO SCH ×2 (10:00→20:46)
[2022-03-04] MEDS: amLODIPine 5 MG Tab PO SCH (10:00)
[2022-03-04] MEDS: Famotidine 20 MG Tab PO SCH ×2 (10:00→20:46)
[2022-03-04] MEDS: Apixaban 5 MG Tab PO SCH ×2 (10:00→20:46)
[2022-03-04] MEDS: Furosemide 20 MG Tab PO SCH (10:00)
[2022-03-04] MEDS: Aspirin 81 MG Tab.EC PO SCH (10:00)
[2022-03-04] MEDS: Gabapentin 100 MG Cap PO SCH ×3 (10:01→20:46)
[2022-03-04] MEDS: Losartan 50 MG Tab PO SCH (10:01)
[2022-03-04] MEDS: Metoprolol Tartrate 25 MG Tab PO SCH (10:01)
[2022-03-04] MEDS: guaiFENesin 600 MG Tab.ER PO SCH ×2 (10:02→20:45)
[2022-03-04] MEDS: Nicotine 21 MG/24 Hr Patch TRDERM SCH (10:02)
[2022-03-04] MEDS: Sodium Chloride 0.9% 10 ML Syringe FLUSH SCH ×2 (10:04→20:46)
[2022-03-04] MEDS: DULoxetine 30 MG Cap PO SCH (20:45)
[2022-03-05] MEDS: Formoterol/Mometasone 200-5 MCG 8.8 GM Inhaler IH SCH (06:27)
[2022-03-05] MEDS: Morphine 15 MG Tab.ER PO SCH (08:15)
[2022-03-05] MEDS: Losartan 50 MG Tab PO SCH (08:15)
[2022-03-05] MEDS: Apixaban 5 MG Tab PO SCH (08:16)
[2022-03-05] MEDS: Gabapentin 100 MG Cap PO SCH (08:16)
[2022-03-05] MEDS: Metoprolol Tartrate 25 MG Tab PO SCH (08:16)
[2022-03-05] MEDS: Famotidine 20 MG Tab PO SCH (08:16)
[2022-03-05] MEDS: amLODIPine 5 MG Tab PO SCH (08:17)
[2022-03-05] MEDS: Aspirin 81 MG Tab.EC PO SCH (08:17)
[2022-03-05] MEDS: guaiFENesin 600 MG Tab.ER PO SCH (08:17)
[2022-03-05] MEDS: Furosemide 20 MG Tab PO SCH (08:17)
[2022-03-05] MEDS: predniSONE 20 MG Tab PO SCH (08:17)
[2022-03-05] MEDS: Nicotine 21 MG/24 Hr Patch TRDERM SCH (08:19)
[2022-03-05] MEDS: Sodium Chloride 0.9% 10 ML Syringe FLUSH SCH (08:21)
[2022-03-06] MEDS ORDERED: predniSONE 20 MG Tab PO SCH (08:00)
== END 2022-03-05 12:20 | disposition home or self-care (01) | DRG 189 ==
LOC: DL.MS 03-01 09:19
PROVIDERS: ADMIT Internal Medicine; ATTEND Internal Medicine
PROC: 5A09557 Assistance with Respiratory Ventilation, Greater than 96 Consecutive Hours, Continuous Positive Airway Pressure (ICD-10-PCS; principal; 2022-03-01)
DX: J96.21 Acute and chronic respiratory failure with hypoxia (principal); J44.1 Chronic obstructive pulmonary disease with (acute) exacerbation; E87.20 Acidosis, unspecified; D64.9 Anemia, unspecified; R73.9 Hyperglycemia, unspecified; Z66 Do not resuscitate; E88.09 Other disorders of plasma-protein metabolism, not elsewhere classified; F17.210 Nicotine dependence, cigarettes, uncomplicated; I25.2 Old myocardial infarction; E66.9 Obesity, unspecified; N28.9 Disorder of kidney and ureter, unspecified; R74.8 Abnormal levels of other serum enzymes; H54.7 Unspecified visual loss; I10 Essential (primary) hypertension; I25.10 Atherosclerotic heart disease of native coronary artery without angina pectoris; K21.9 Gastro-esophageal reflux disease without esophagitis; M19.90 Unspecified osteoarthritis, unspecified site; Z96.653 Presence of artificial knee joint, bilateral; B97.4 Respiratory syncytial virus as the cause of diseases classified elsewhere; Z68.36 Body mass index [BMI] 36.0-36.9, adult; Z87.440 Personal history of urinary (tract) infections; Z79.82 Long term (current) use of aspirin; Z79.01 Long term (current) use of anticoagulants; Z79.899 Other long term (current) drug therapy; Z95.5 Presence of coronary angioplasty implant and graft; Z86.73 Personal history of transient ischemic attack (TIA), and cerebral infarction without residual deficits; Z98.41 Cataract extraction status, right eye; Z98.42 Cataract extraction status, left eye; Z90.49 Acquired absence of other specified parts of digestive tract; Z86.16 Personal history of COVID-19; Z86.19 Personal history of other infectious and parasitic diseases; Z88.0 Allergy status to penicillin; Z88.1 Allergy status to other antibiotic agents; Z88.8 Allergy status to other drugs, medicaments and biological substances
CPT/HCPCS: 36415; 82947; 83735; 97110-GO; 97110-GP; 97161-GP; 97165-GO; 97530-GO; 99306; 99315; A9270-GY; J3490; J7512

== ENCOUNTER 2022-03-19 10:05 | Observation (INO) | payer MEDICARE, OTHER ==
[2022-03-19] MEDS ORDERED: Sodium Chloride 0.9% 10 ML Syringe FLUSH PRN (10:18)
[2022-03-19 11:21] LABS: ANION GAP 16.8 mEq/L (7-13); CHLORIDE,CL 104 mmol/L (98-107); SODIUM,NA 140 mmol/L (136-145)
[2022-03-19 11:23] LABS: ESTIMATED GFR 36 mL/min (>=60)
[2022-03-19] MEDS ORDERED: Potassium Chloride 10 MEQ Tab.ER PO ONE ×2 (11:33→18:00)
[2022-03-19 11:51] LABS: CORONAVIRUS COVID-19 NAA NEGATIVE (NEGATIVE); RESPIRATORY SYNCYTIAL VIR NAA NEGATIVE (NEGATIVE)
[2022-03-19] MEDS ORDERED: Potassium Chloride 20 MEQ in Premix Bag 1 BAG IV ONE (11:51)
[2022-03-19] MEDS ORDERED: Sodium Chloride 0.9% 1,000 ML IV ONE (11:54)
[2022-03-19] MEDS ORDERED: cefTRIAXone 2 GM Vial IVPUSH ONE (12:47)
[2022-03-19] MEDS ORDERED: Polyethylene Glycol 3350 Powder 17 GM Packet PO PRN (14:24)
[2022-03-19] MEDS ORDERED: Albuterol 0.083% 2.5 MG/3 ML Neb Soln NEB PRN (14:24)
[2022-03-19] MEDS ORDERED: Ondansetron 4 MG/2 ML SDV IVPUSH PRN (14:24)
[2022-03-19] MEDS ORDERED: Magnesium Hydroxide 400 MG/5 ML Susp 30 ML Cup PO PRN (14:24)
[2022-03-19] MEDS ORDERED: Acetaminophen 325 MG Tab PO PRN (14:24)
[2022-03-19] MEDS ORDERED: Lactated Ringers 1,000 ML IV SCH (14:30)
[2022-03-19] MEDS ORDERED: Iron Sucrose Complex 500 MG in Sodium Chloride 0.9% 250 ML IV ONE (14:33)
[2022-03-19] MEDS ORDERED: Magnesium Sulfate/Water 2 GM in Premix Bag 1 BAG IV ONE (14:36)
[2022-03-19] MEDS: Nicotine 7 MG/24 Hr Patch TRDERM SCH (16:45)
[2022-03-19] MEDS: Famotidine 20 MG Tab PO SCH ×2 (16:47→20:42)
[2022-03-19] MEDS: Albuterol/Ipratropium 3.0-0.5 MG/3 ML Neb Soln NEB SCH (17:30)
[2022-03-19] MEDS: Insulin Lispro 100 Units/ML 3 ML Vial SUBCUT SCH ×2 (17:42→22:00)
[2022-03-19] MEDS: Apixaban 5 MG Tab PO SCH (20:41)
[2022-03-19] MEDS: Morphine 15 MG Tab.ER PO SCH (20:41)
[2022-03-19] MEDS ORDERED: Check Patch TRDERM SCH (21:00)
[2022-03-20] MEDS: Albuterol/Ipratropium 3.0-0.5 MG/3 ML Neb Soln NEB SCH ×2 (00:28→07:39)
[2022-03-20 07:20] LABS: ANION GAP 8.9 mEq/L (7-13)
[2022-03-20] MEDS: Insulin Lispro 100 Units/ML 3 ML Vial SUBCUT SCH ×2 (07:40→11:51)
[2022-03-20] MEDS ORDERED: Aspirin 81 MG Tab.EC PO SCH (08:00)
[2022-03-20] MEDS: Nicotine 7 MG/24 Hr Patch TRDERM SCH (08:01)
[2022-03-20] MEDS: Apixaban 5 MG Tab PO SCH (08:04)
[2022-03-20] MEDS: Morphine 15 MG Tab.ER PO SCH (08:04)
[2022-03-20] MEDS: Famotidine 20 MG Tab PO SCH (09:09)
[2022-03-20] MEDS ORDERED: Levofloxacin 500 MG Tab PO SCH (11:00)
[2022-03-20] MEDS ORDERED: Morphine 15 MG Tab.ER PO SCH (21:00)
== END 2022-03-20 15:00 | disposition home or self-care (01) ==
LOC: DL.ED 10:05 → DL.MS 13:49 → DL.ED 14:13
PROVIDERS: ADMIT Internal Medicine; ATTEND Internal Medicine
DX: R19.7 Diarrhea, unspecified (principal); N39.0 Urinary tract infection, site not specified; N17.9 Acute kidney failure, unspecified; I48.91 Unspecified atrial fibrillation; J43.9 Emphysema, unspecified; M54.50 Low back pain, unspecified; G89.29 Other chronic pain; D50.9 Iron deficiency anemia, unspecified; M19.90 Unspecified osteoarthritis, unspecified site; E66.9 Obesity, unspecified; F17.210 Nicotine dependence, cigarettes, uncomplicated; Z79.899 Other long term (current) drug therapy; Z79.82 Long term (current) use of aspirin; Z88.8 Allergy status to other drugs, medicaments and biological substances; Z88.1 Allergy status to other antibiotic agents; Z88.0 Allergy status to penicillin; Z96.653 Presence of artificial knee joint, bilateral; Z90.49 Acquired absence of other specified parts of digestive tract; Z98.890 Other specified postprocedural states; Z20.822 Contact with and (suspected) exposure to COVID-19
CPT/HCPCS: 0241U; 36415; 80048; 80053; 81001; 82272; 82728; 82947; 83540; 83550; 83605; 83735; 83880; 84145; 85025; 85610; 86140; 87040; 87086; 87088; 87186; 93005; 94640; 96361; 96365; 96366; 96367; 96375; 99285; A9270; G0378; J0696; J1756; J1815; J3475; J3480; J3490; J7030; J7050; J7120; 99217; 99220; J7620-GY

== ENCOUNTER 2022-05-19 14:16 | Emergency (ER) | payer MEDICARE, OTHER ==
[2022-05-19] MEDS: Sodium Chloride 0.9% 10 ML Syringe FLUSH PRN (15:13)
[2022-05-19 15:28] LABS: ANION GAP 15.3 mEq/L (7-13); CHLORIDE,CL 104 mmol/L (98-107); SODIUM,NA 141 mmol/L (136-145)
[2022-05-19 15:32] LABS: ESTIMATED GFR 38 mL/min (>=60)
[2022-05-19 16:01] LABS: CORONAVIRUS COVID-19 NAA NEGATIVE (NEGATIVE); RESPIRATORY SYNCYTIAL VIR NAA NEGATIVE (NEGATIVE)
[2022-05-19] MEDS: Furosemide 40 MG/4 ML VIAL IVPUSH ONE (16:19)
[2022-05-19] MEDS: oxyCODONE 5 MG Tab PO ONE (16:30)
[2022-05-19] MEDS: Gabapentin 100 MG Cap PO ONE (16:30)
== END 2022-05-19 17:30 | disposition home or self-care (01) ==
LOC: DL.ED 14:16
DX: J43.9 Emphysema, unspecified (principal); N39.0 Urinary tract infection, site not specified; R31.9 Hematuria, unspecified; K21.9 Gastro-esophageal reflux disease without esophagitis; M19.90 Unspecified osteoarthritis, unspecified site; E66.9 Obesity, unspecified; Z68.32 Body mass index [BMI] 32.0-32.9, adult; Z72.0 Tobacco use; Z88.8 Allergy status to other drugs, medicaments and biological substances; Z88.1 Allergy status to other antibiotic agents; Z88.0 Allergy status to penicillin; Z79.82 Long term (current) use of aspirin; Z79.899 Other long term (current) drug therapy; Z79.01 Long term (current) use of anticoagulants; Z20.822 Contact with and (suspected) exposure to COVID-19
CPT/HCPCS: 0241U; 36415; 71045; 80053; 81001; 83605; 83735; 83880; 84145; 84484; 85025; 85610; 85730; 86140; 87040; 87086; 87088; 87186; 93005; 93010; 96374; 99284; 99285-25; A9270-GY; J1940; J3490

== ENCOUNTER 2022-11-30 09:53 | Inpatient (IN) | payer MEDICARE, OTHER ==
[2022-11-30] MEDS ORDERED: Albuterol/Ipratropium 3.0-0.5 MG/3 ML Neb Soln NEB ONE (09:58)
[2022-11-30] MEDS ORDERED: methylPREDNISolone Sodium Succinate 125 MG/2 ML SDV IVPUSH ONE (09:58)
[2022-11-30] MEDS ORDERED: Iopamidol 612 MG/ML 100 ML Bottle IVPUSH ONE (10:01)
[2022-11-30] MEDS ORDERED: Diphtheria,Pertussis(Acell),Tetanus Vaccine 0.5 ML Syringe IM ONE (10:06)
[2022-11-30 10:07] LABS: BASOPHILS PERCENT AUTO 0.4 % (0.0-1.0); EOSINOPHILS PERCENT AUTO 3.4 % (1.0-3.0); HEMATOCRIT 46.2 % (37.0-47.0); HEMOGLOBIN 15.3 g/dL (12.0-16.0); LYMPHOCYTES PERCENT AUTO 15.1 % (20.5-50.1); MEAN CORPUSCULAR HEMOGLOBIN 29.4 pg (27.0-34.0); MEAN CORPUSCULAR HGB CONC 33.1 g/dL (33.0-35.0); MEAN CORPUSCULAR VOLUME 88.8 fL (80-100); MONOCYTES PERCENT AUTO 9.2 % (2-8); NEUTROPHILS PERCENT AUTO 71.9 % (42.2-75.2); PLATELET COUNT,PLT 270 10^3/uL (150-450); WHITE BLOOD CELL COUNT,WBC 11.4 10^3/uL (5.0-10.0)
[2022-11-30 10:27] LABS: B-TYPE NATRIURETIC PEPTIDE,BNP 270 pg/ml (0-100)
[2022-11-30 10:32] LABS: LACTIC ACID 1.4 mmol/L (0.4-2.0)
[2022-11-30 10:39] LABS: PROTHROMBIN TIME 10.4 SEC (9.0-12.0); PTT,PARTIAL THROMBOPLSTIN TIME 36.8 SEC (22.0-34.0)
[2022-11-30 10:50] LABS: A/G RATIO 0.9; ALANINE AMINOTRANSFERASE,ALT 29 U/L (14-59); ALBUMIN 3.4 g/dL (3.4-5.0); ALKALINE PHOSPHATASE 170 U/L (46-116); ASPARTATE AMNIOTRANSFERASE,AST 88 U/L (15-37); BILIRUBIN TOTAL 0.5 mg/dL (0.2-1.0); BLOOD UREA NITROGEN,BUN 30 mg/dL (7-18); BUN/CREATININE RATIO 19.1 (No establ ref range); CARBON DIOXIDE,CO2 27 mmol/L (21-32); CHLORIDE,CL 103 mmol/L (98-107); CREATININE 1.57 mg/dL (0.55-1.02); GLUCOSE RANDOM 127 mg/dL (70-99); MAGNESIUM 2.3 mg/dL (1.8-2.4); PROTEIN TOTAL,TP 7.1 g/dL (6.4-8.2); SODIUM,NA 141 mmol/L (136-145); TSH ULTRASENSITIVE 2.22 uIU/mL (0.36-3.74)
[2022-11-30] MEDS ORDERED: Iopamidol 755 Mg/ML 100 ML Bottle IVPUSH ONE (10:50)
[2022-11-30 10:52] LABS: CREATINE KINASE,CK 4485 U/L (16-191); ESTIMATED GFR 33 mL/min (>=60); ETHANOL BLOOD MEDICAL < 3 mg/dL (0)
[2022-11-30] MEDS ORDERED: Sodium Chloride 0.9% 1,000 ML IV ONE (11:11)
[2022-11-30 11:15] LABS: APPEARANCE,URINE SLIGHTLY CLOUDY (CLEAR); BILIRUBIN,URINE NEGATIVE (NEGATIVE); COLOR,URINE YELLOW (YELLOW); GLUCOSE,URINE NEGATIVE (NEGATIVE); KETONES,URINE NEGATIVE (NEGATIVE); LEUKOCYTE ESTERASE,URINE MODERATE (NEGATIVE); NITRITE,URINE POSITIVE (NEGATIVE); OCCULT BLOOD,URINE SMALL (NEGATIVE); PROTEIN,URINE NEGATIVE (NEGATIVE); UROBILINOGEN,URINE 0.2 mg/dL (0.2-1.0)
[2022-11-30 11:20] LABS: AMPHETAMINES,URINE NEGATIVE (NEGATIVE); BARBITURATES,URINE NEGATIVE (NEGATIVE); BENZODIAZEPINE,URINE NEGATIVE (NEGATIVE); MDMA (ECSTASY), URINE NEGATIVE (NEGATIVE); METHADONE,URINE NEGATIVE (NEGATIVE); METHAMPHETAMINES,URINE NEGATIVE (NEGATIVE); OPIATES,URINE POSITIVE (NEGATIVE); OXYCODONE,URINE NEGATIVE (NEGATIVE); PHENCYCLIDINE,URINE NEGATIVE (NEGATIVE); TCA,URINE NEGATIVE (NEGATIVE)
[2022-11-30 11:34] LABS: AMORPHOUS SEDIMENT,URINE FEW /HPF (NOT SEEN); BACTERIA,URINE MANY /HPF (0-FEW/HPF); EPITHELIAL CELLS,URINE MODERATE /HPF (NOT SEEN); MUCUS,URINE FEW /LPF (NOT SEEN); WBC,URINE >100 /HPF (0-5/HPF)
[2022-11-30] MEDS ORDERED: cefTRIAXone 2 GM Vial IVPUSH ONE (11:50)
[2022-11-30 11:53] LABS: O2 DELIVERY DEVICE NASAL CANNULA
[2022-11-30 11:55] LABS: ALLEN TEST POSITIVE; BASE EXCESS ARTERIAL -3 mmol/L ((-2)-(+3)); BICARBONATE,ARTERIAL 21.8 mmol/L (22-26); O2 SATURATION ARTERIAL 90 % (95-100); PCO2 ARTERIAL 42 mmHg (35-45); PH,ARTERIAL 7.34 (7.35-7.45); PO2 ARTERIAL 63 mmHg (70-100)
[2022-11-30] MEDS ORDERED: Sennosides/Docusate Sodium 50-8.6 MG Tab PO PRN (13:15)
[2022-11-30] MEDS ORDERED: Ondansetron 4 MG Tab.DIS PO PRN (13:15)
[2022-11-30] MEDS ORDERED: Gabapentin 100 MG Cap PO SCH (14:00)
[2022-11-30] MEDS: Sodium Chloride 0.9% 1,000 ML IV SCH (15:27)
[2022-11-30] MEDS: Nicotine 14 MG/24 Hr Patch TRDERM SCH (19:20)
[2022-11-30] MEDS: Gabapentin 300 MG Cap PO SCH (20:27)
[2022-11-30] MEDS: DULoxetine 30 MG Cap PO SCH (20:27)
[2022-11-30] MEDS: Morphine 15 MG Tab.ER PO SCH (20:28)
[2022-11-30] MEDS: Famotidine 20 MG Tab PO SCH (20:29)
[2022-11-30] MEDS: Apixaban 5 MG Tab PO SCH (20:29)
[2022-11-30] MEDS: Sodium Chloride 0.9% 10 ML Syringe FLUSH PRN (20:30)
[2022-11-30] MEDS ORDERED: guaiFENesin 600 MG Tab.ER PO SCH (21:00)
[2022-11-30] MEDS: Acetaminophen 325 MG Tab PO PRN (21:26)
[2022-11-30] MEDS ORDERED: Albuterol/Ipratropium 3.0-0.5 MG/3 ML Neb Soln NEB PRN (22:41)
[2022-12-01] MEDS: Sodium Chloride 0.9% 1,000 ML IV SCH (04:54)
[2022-12-01 06:17] LABS: BASOPHILS PERCENT AUTO 0.1 % (0.0-1.0); HEMATOCRIT 42.3 % (37.0-47.0); LYMPHOCYTES PERCENT AUTO 10.6 % (20.5-50.1); MEAN CORPUSCULAR HEMOGLOBIN 29.7 pg (27.0-34.0); MEAN CORPUSCULAR HGB CONC 33.1 g/dL (33.0-35.0); MEAN CORPUSCULAR VOLUME 89.6 fL (80-100); MONOCYTES PERCENT AUTO 8.2 % (2-8); NEUTROPHILS PERCENT AUTO 81.1 % (42.2-75.2); PLATELET COUNT,PLT 268 10^3/uL (150-450); RED BLOOD CELL COUNT 4.72 10^6/uL (4.2-5.4); WHITE BLOOD CELL COUNT,WBC 15.1 10^3/uL (5.0-10.0)
[2022-12-01] MEDS: Acetaminophen 325 MG Tab PO PRN ×3 (06:24→21:56)
[2022-12-01 06:31] LABS: ANION GAP 14.3 mEq/L (7-13); CALCIUM 9.6 mg/dL (8.5-10.1); CREATININE 1.34 mg/dL (0.55-1.02); EST CRCL DRUG DOSING (CG) 24.85 mL/min; POTASSIUM,K 4.3 mmol/L (3.5-5.1)
[2022-12-01] MEDS: Gabapentin 300 MG Cap PO SCH ×2 (08:52→20:00)
[2022-12-01] MEDS: Morphine 15 MG Tab.ER PO SCH ×3 (08:52→20:03)
[2022-12-01] MEDS: Metoprolol Succinate 25 MG Tab.ER PO SCH (08:53)
[2022-12-01] MEDS: Nicotine 14 MG/24 Hr Patch TRDERM SCH (08:53)
[2022-12-01] MEDS: Apixaban 5 MG Tab PO SCH ×2 (08:53→20:00)
[2022-12-01] MEDS ORDERED: Aspirin 81 MG Tab.EC PO SCH (09:00)
[2022-12-01] MEDS ORDERED: Non-Formulary Medication 1 Each (Duloxetine [Cymbalta] 60 MG Cap) PO SCH (09:00)
[2022-12-01] MEDS: cefTRIAXone 1 GM Vial IVPUSH SCH (11:45)
[2022-12-01] MEDS: Bisacodyl 10 MG Supp RECTAL SCH (11:58)
[2022-12-01] MEDS: Magnesium Hydroxide 400 MG/5 ML Susp 30 ML Cup PO SCH (12:03)
[2022-12-01] MEDS: Famotidine 20 MG Tab PO SCH (20:00)
[2022-12-01] MEDS: DULoxetine 30 MG Cap PO SCH (20:00)
[2022-12-01] MEDS ORDERED: Lactulose Soln 10 GM/15 ML 30 ML UD Cup PO ONE (21:56)
[2022-12-02] MEDS: Acetaminophen 325 MG Tab PO PRN ×2 (02:25→16:23)
[2022-12-02] MEDS ORDERED: Morphine 2 MG/ML SYRINGE IVPUSH ONE (02:44)
[2022-12-02 06:20] LABS: BASOPHILS PERCENT AUTO 0.2 % (0.0-1.0); EOSINOPHILS PERCENT AUTO 0.5 % (1.0-3.0); HEMATOCRIT 41.7 % (37.0-47.0); HEMOGLOBIN 13.7 g/dL (12.0-16.0); LYMPHOCYTES PERCENT AUTO 16.1 % (20.5-50.1); MEAN CORPUSCULAR HEMOGLOBIN 29.3 pg (27.0-34.0); MEAN CORPUSCULAR HGB CONC 32.9 g/dL (33.0-35.0); MEAN CORPUSCULAR VOLUME 89.3 fL (80-100); MONOCYTES PERCENT AUTO 11.3 % (2-8); NEUTROPHILS PERCENT AUTO 71.9 % (42.2-75.2); PLATELET COUNT,PLT 256 10^3/uL (150-450); RED BLOOD CELL COUNT 4.67 10^6/uL (4.2-5.4); WHITE BLOOD CELL COUNT,WBC 12.6 10^3/uL (5.0-10.0)
[2022-12-02] MEDS: Magnesium Hydroxide 400 MG/5 ML Susp 30 ML Cup PO SCH (09:01)
[2022-12-02] MEDS: Apixaban 5 MG Tab PO SCH ×2 (09:03→20:27)
[2022-12-02] MEDS: Gabapentin 300 MG Cap PO SCH ×2 (09:03→20:28)
[2022-12-02] MEDS: Morphine 15 MG Tab.ER PO SCH ×2 (09:04→20:28)
[2022-12-02] MEDS: Metoprolol Succinate 25 MG Tab.ER PO SCH (09:04)
[2022-12-02] MEDS: Nicotine 14 MG/24 Hr Patch TRDERM SCH (09:06)
[2022-12-02] MEDS: Bisacodyl 10 MG Supp RECTAL SCH (09:09)
[2022-12-02] MEDS ORDERED: Magnesium Hydroxide 400 MG/5 ML Susp 30 ML Cup PO SCH (09:30)
[2022-12-02 09:45] LABS: CALCIUM 9.6 mg/dL (8.5-10.1); CREATININE 0.98 mg/dL (0.55-1.02); EST CRCL DRUG DOSING (CG) 33.97 mL/min
[2022-12-02] MEDS: cefTRIAXone 1 GM Vial IVPUSH SCH (12:25)
[2022-12-02] MEDS: Famotidine 20 MG Tab PO SCH (20:27)
[2022-12-02] MEDS: DULoxetine 30 MG Cap PO SCH (20:28)
[2022-12-03] MEDS: Acetaminophen 325 MG Tab PO PRN ×2 (04:31→21:53)
[2022-12-03 06:32] LABS: ANION GAP 15.7 mEq/L (7-13); CALCIUM 9.4 mg/dL (8.5-10.1); CREATININE 1.01 mg/dL (0.55-1.02); EST CRCL DRUG DOSING (CG) 32.96 mL/min; POTASSIUM,K 3.7 mmol/L (3.5-5.1)
[2022-12-03] MEDS: Magnesium Hydroxide 400 MG/5 ML Susp 30 ML Cup PO SCH (09:04)
[2022-12-03] MEDS: Gabapentin 300 MG Cap PO SCH ×2 (09:05→20:13)
[2022-12-03] MEDS: Apixaban 5 MG Tab PO SCH ×2 (09:05→20:12)
[2022-12-03] MEDS: Morphine 15 MG Tab.ER PO SCH ×2 (09:06→20:12)
[2022-12-03] MEDS: Metoprolol Succinate 25 MG Tab.ER PO SCH (09:07)
[2022-12-03] MEDS ORDERED: rOPINIRole 0.25 MG Tab PO ONE (09:16)
[2022-12-03] MEDS ORDERED: amLODIPine 5 MG Tab PO SCH (12:00)
[2022-12-03] MEDS: cefTRIAXone 1 GM Vial IVPUSH SCH (12:03)
[2022-12-03] MEDS: hydrALAZINE 25 MG Tab PO SCH ×2 (12:29→20:12)
[2022-12-03] MEDS: amLODIPine 5 MG Tab PO SCH (13:58)
[2022-12-03] MEDS ORDERED: Metoprolol Succinate 25 MG Tab.ER PO ONE (14:00)
[2022-12-03] MEDS: Bisacodyl 10 MG Supp RECTAL SCH (14:01)
[2022-12-03] MEDS: Famotidine 20 MG Tab PO SCH (20:13)
[2022-12-03] MEDS: rOPINIRole 0.25 MG Tab PO SCH (20:13)
[2022-12-03] MEDS: DULoxetine 30 MG Cap PO SCH (20:13)
[2022-12-04] MEDS: hydrALAZINE 25 MG Tab PO SCH ×3 (04:04→20:00)
[2022-12-04] MEDS: Apixaban 5 MG Tab PO SCH ×2 (08:39→20:25)
[2022-12-04] MEDS: Gabapentin 300 MG Cap PO SCH ×2 (08:39→20:25)
[2022-12-04] MEDS: Morphine 15 MG Tab.ER PO SCH ×2 (08:40→20:24)
[2022-12-04] MEDS: Metoprolol Succinate 50 MG Tab.ER PO SCH (08:40)
[2022-12-04] MEDS: Sodium Chloride 0.9% 10 ML Syringe FLUSH PRN (08:42)
[2022-12-04 09:52] LABS: BASOPHILS PERCENT AUTO 0.4 % (0.0-1.0); EOSINOPHILS PERCENT AUTO 2.3 % (1.0-3.0); HEMATOCRIT 42.1 % (37.0-47.0); HEMOGLOBIN 14.1 g/dL (12.0-16.0); LYMPHOCYTES PERCENT AUTO 17.3 % (20.5-50.1); MEAN CORPUSCULAR HEMOGLOBIN 29.9 pg (27.0-34.0); MEAN CORPUSCULAR HGB CONC 33.5 g/dL (33.0-35.0); MEAN CORPUSCULAR VOLUME 89.2 fL (80-100); MONOCYTES PERCENT AUTO 8.4 % (2-8); NEUTROPHILS PERCENT AUTO 71.6 % (42.2-75.2); PLATELET COUNT,PLT 240 10^3/uL (150-450); RED BLOOD CELL COUNT 4.72 10^6/uL (4.2-5.4); WHITE BLOOD CELL COUNT,WBC 10.1 10^3/uL (5.0-10.0)
[2022-12-04] MEDS: Bisacodyl 10 MG Supp RECTAL SCH (10:16)
[2022-12-04] MEDS: amLODIPine 5 MG Tab PO SCH (11:59)
[2022-12-04] MEDS: cefTRIAXone 1 GM Vial IVPUSH SCH (12:05)
[2022-12-04] MEDS: Famotidine 20 MG Tab PO SCH (20:24)
[2022-12-04] MEDS: rOPINIRole 0.25 MG Tab PO SCH (20:25)
[2022-12-04] MEDS: DULoxetine 30 MG Cap PO SCH (20:25)
[2022-12-04] MEDS: Acetaminophen 325 MG Tab PO PRN (21:32)
[2022-12-05] MEDS: hydrALAZINE 25 MG Tab PO SCH ×2 (04:04→12:32)
[2022-12-05] MEDS: Apixaban 5 MG Tab PO SCH (09:10)
[2022-12-05] MEDS: Morphine 15 MG Tab.ER PO SCH (09:11)
[2022-12-05] MEDS: Metoprolol Succinate 50 MG Tab.ER PO SCH (09:11)
[2022-12-05] MEDS: Gabapentin 300 MG Cap PO SCH (09:11)
[2022-12-05] MEDS ORDERED: cefTRIAXone 1 GM Vial IVPUSH SCH (09:25)
[2022-12-05] MEDS: Bisacodyl 10 MG Supp RECTAL SCH (12:32)
[2022-12-05] MEDS: amLODIPine 5 MG Tab PO SCH (12:33)
== END 2022-12-05 12:35 | disposition other institution (70) | DRG 91 ==
LOC: DL.ED 09:53 → UNDOADMIN 12:48 → DL.MS 12:48
PROVIDERS: ADMIT Hospitalist; ATTEND Hospitalist
DX: G92.8 Other toxic encephalopathy (principal); J96.21 Acute and chronic respiratory failure with hypoxia; N39.0 Urinary tract infection, site not specified; N17.9 Acute kidney failure, unspecified; M62.82 Rhabdomyolysis; Z66 Do not resuscitate; B96.20 Unspecified Escherichia coli [E. coli] as the cause of diseases classified elsewhere; K59.00 Constipation, unspecified; E86.0 Dehydration; Z20.822 Contact with and (suspected) exposure to COVID-19; I10 Essential (primary) hypertension; I25.10 Atherosclerotic heart disease of native coronary artery without angina pectoris; I48.20 Chronic atrial fibrillation, unspecified; R29.6 Repeated falls; M19.90 Unspecified osteoarthritis, unspecified site; J43.9 Emphysema, unspecified; Z96.653 Presence of artificial knee joint, bilateral; G25.81 Restless legs syndrome; G89.4 Chronic pain syndrome; J44.9 Chronic obstructive pulmonary disease, unspecified; K21.9 Gastro-esophageal reflux disease without esophagitis; Z88.8 Allergy status to other drugs, medicaments and biological substances; I25.2 Old myocardial infarction; Z98.41 Cataract extraction status, right eye; Z98.42 Cataract extraction status, left eye; Z68.32 Body mass index [BMI] 32.0-32.9, adult; Z90.49 Acquired absence of other specified parts of digestive tract; Z98.890 Other specified postprocedural states; Z90.721 Acquired absence of ovaries, unilateral; E66.9 Obesity, unspecified; F17.210 Nicotine dependence, cigarettes, uncomplicated; Z99.81 Dependence on supplemental oxygen; Z79.01 Long term (current) use of anticoagulants; Z79.82 Long term (current) use of aspirin; Z79.899 Other long term (current) drug therapy; Z95.5 Presence of coronary angioplasty implant and graft; Z86.73 Personal history of transient ischemic attack (TIA), and cerebral infarction without residual deficits; W18.30XA Fall on same level, unspecified, initial encounter
CPT/HCPCS: 36415; 36600; 70450; 71260; 72125; 74177; 80053; 80305; 80307; 81001; 82140; 82550; 82803; 83605; 83735; 83880; 84145; 84443; 84484; 85025; 85610; 85730; 87040 ×2; 87086; 87088; 87186; 87804 ×2; 90471; 90715; 93005; 93010; 96361; 96374; 96375; 99285 ×2; J0696; J2930; J7030; Q9967; U0002; 74018; 80048; 94640; 97110-GP; 97116-GP; 97161-GP; 97165-GO; 97530-GO; 97530-GP; 97535-GO; 99223; 99232; 99233; 99238; A9270-GY; J2270; J3490; J7620-GY

== ENCOUNTER 2023-12-31 14:38 | Inpatient (IN) | payer MEDICARE, OTHER ==
[2023-12-31 15:44] LABS: BASOPHILS PERCENT AUTO 0.3 % (0.0-1.0); EOSINOPHILS PERCENT AUTO 1.9 % (1.0-3.0); HEMATOCRIT 42.3 % (37.0-47.0); HEMOGLOBIN 13.4 g/dL (12.0-16.0); LYMPHOCYTES PERCENT AUTO 15.5 % (20.5-50.1); MEAN CORPUSCULAR HEMOGLOBIN 32.3 pg (27.0-34.0); MEAN CORPUSCULAR HGB CONC 31.7 g/dL (33.0-35.0); MEAN CORPUSCULAR VOLUME 101.9 fL (80-100); MONOCYTES PERCENT AUTO 11.4 % (2-8); NEUTROPHILS PERCENT AUTO 70.9 % (42.2-75.2); O2 DELIVERY DEVICE NASAL CANNULA; PLATELET COUNT,PLT 328 10^3/uL (150-450); RED BLOOD CELL COUNT 4.15 10^6/uL (4.2-5.4); WHITE BLOOD CELL COUNT,WBC 15.4 10^3/uL (5.0-10.0)
[2023-12-31 15:49] LABS: BICARBONATE,VENOUS 28 mmol/l (19-25); O2 SATURATION VENOUS 27.6 % (60-80); PCO2 VENOUS 55 mmHg (41-51); PH,VENOUS 7.32 (7.31-7.41); PO2 VENOUS 28 mmHg (35-42)
[2023-12-31 15:51] LABS: BASE EXCESS VENOUS 1.1 mmol/l ((-2)-(+3))
[2023-12-31 16:10] LABS: B-TYPE NATRIURETIC PEPTIDE,BNP 71 pg/ml (0-100); LACTIC ACID 1.7 mmol/L (0.4-2.0)
[2023-12-31 16:22] LABS: A/G RATIO 0.79; ALANINE AMINOTRANSFERASE,ALT 20 U/L (14-59); ALKALINE PHOSPHATASE 165 U/L (46-116); ANION GAP 13.2 mEq/L (7-13); ASPARTATE AMNIOTRANSFERASE,AST 28 U/L (15-37); BILIRUBIN TOTAL 0.7 mg/dL (0.2-1.0); BLOOD UREA NITROGEN,BUN 42 mg/dL (7-18); BUN/CREATININE RATIO 17.9 (No establ ref range); CALCIUM 9.6 mg/dL (8.5-10.1); CARBON DIOXIDE,CO2 28 mmol/L (21-32); CHLORIDE,CL 103 mmol/L (98-107); CREATININE 2.34 mg/dL (0.55-1.02); ESTIMATED GFR 20 mL/min (>=60); GLUCOSE RANDOM 110 mg/dL (70-99); LIPASE 55 U/L (16-77); MAGNESIUM 2.3 mg/dL (1.8-2.4); POTASSIUM,K 5.2 mmol/L (3.5-5.1); PROTEIN TOTAL,TP 6.8 g/dL (6.4-8.2); SODIUM,NA 139 mmol/L (136-145)
[2023-12-31 16:32] LABS: APPEARANCE,URINE CLEAR (CLEAR); BILIRUBIN,URINE NEGATIVE (NEGATIVE); COLOR,URINE YELLOW (YELLOW); GLUCOSE,URINE NEGATIVE (NEGATIVE); KETONES,URINE NEGATIVE (NEGATIVE); LEUKOCYTE ESTERASE,URINE SMALL (NEGATIVE); NITRITE,URINE NEGATIVE (NEGATIVE); OCCULT BLOOD,URINE TRACE-INTACT (NEGATIVE); PH,URINE 5.5 (5.0-9.0); PROTEIN,URINE NEGATIVE (NEGATIVE); UROBILINOGEN,URINE 0.2 mg/dL (0.2-1.0)
[2023-12-31 16:44] LABS: YEAST,URINE RARE /HPF (NOT SEEN)
[2023-12-31 16:45] LABS: AMORPHOUS SEDIMENT,URINE FEW /HPF (NOT SEEN); BACTERIA,URINE FEW /HPF (0-FEW/HPF); EPITHELIAL CELLS,URINE MODERATE /HPF (NOT SEEN); HYALINE CASTS,URINE MODERATE; MUCUS,URINE FEW /LPF (NOT SEEN); RBC,URINE 0-5 /HPF (0-5); WBC,URINE 20-30 /HPF (0-5/HPF)
[2023-12-31] MEDS: Sodium Chloride 0.9% 500 ML IV SCH (17:06)
[2023-12-31] MEDS: cefTRIAXone 1 GM Vial IVPUSH ONE (17:06)
[2023-12-31] MEDS ORDERED: Albuterol/Ipratropium 3.0-0.5 MG/3 ML Neb Soln NEB PRN (18:11)
[2023-12-31] MEDS ORDERED: Polyethylene Glycol 3350 Powder 17 GM Packet PO PRN (18:11)
[2023-12-31] MEDS ORDERED: Sodium Chloride 0.9% 10 ML Syringe FLUSH PRN (18:11)
[2023-12-31] MEDS ORDERED: Ondansetron 4 MG/2 ML SDV IVPUSH PRN (18:11)
[2023-12-31] MEDS ORDERED: Arformoterol 15 MCG/2 ML Neb Soln INH SCH (18:30)
[2023-12-31] MEDS ORDERED: Oxymetazoline 0.05% Nasal Spray 30 ML Bottle NASBOTH PRN (18:30)
[2023-12-31] MEDS: Budesonide 0.5 MG/2 ML Neb Susp NEB SCH (20:07)
[2023-12-31] MEDS: Arformoterol 15 MCG/2 ML Neb Soln INH SCH (20:08)
[2023-12-31] MEDS: Sodium Chloride 0.9% 1,000 ML IV ONE (20:10)
[2023-12-31] MEDS: Apixaban 5 MG Tab PO SCH (21:46)
[2023-12-31] MEDS: Tolterodine 2 MG Tab PO SCH (21:46)
[2023-12-31] MEDS: Gabapentin 100 MG Cap PO SCH (21:47)
[2023-12-31] MEDS: Sodium Chloride 0.9% 10 ML Syringe FLUSH SCH (21:47)
[2023-12-31] MEDS: rOPINIRole 0.25 MG Tab PO SCH (21:47)
[2023-12-31] MEDS: Melatonin 3 MG Tab PO SCH (21:47)
[2023-12-31] MEDS: Morphine 15 MG Tab.ER PO ONE (23:05)
[2023-12-31] MEDS: YUPELRI 175 MCG/3 ML INH SCH (23:49)
[2024-01-01 03:15] LABS: APPEARANCE,URINE CLOUDY (CLEAR); BILIRUBIN,URINE NEGATIVE (NEGATIVE); COLOR,URINE YELLOW (YELLOW); GLUCOSE,URINE NEGATIVE (NEGATIVE); KETONES,URINE NEGATIVE (NEGATIVE); LEUKOCYTE ESTERASE,URINE SMALL (NEGATIVE); NITRITE,URINE NEGATIVE (NEGATIVE); OCCULT BLOOD,URINE TRACE-INTACT (NEGATIVE); PH,URINE 5.5 (5.0-9.0); PROTEIN,URINE NEGATIVE (NEGATIVE); UROBILINOGEN,URINE 0.2 mg/dL (0.2-1.0)
[2024-01-01 03:26] LABS: BACTERIA,URINE MODERATE /HPF (0-FEW/HPF); EPITHELIAL CELLS,URINE FEW /HPF (NOT SEEN); WBC,URINE >100 /HPF (0-5/HPF)
[2024-01-01] MEDS ORDERED: Sodium Chloride 0.9% 1,000 ML IV SCH (03:30)
[2024-01-01] MEDS: REVEFENACIN INH SCH (05:42)
[2024-01-01 06:34] LABS: BASOPHILS PERCENT AUTO 0.3 % (0.0-1.0); EOSINOPHILS PERCENT AUTO 2.6 % (1.0-3.0); HEMATOCRIT 39.3 % (37.0-47.0); HEMOGLOBIN 12.4 g/dL (12.0-16.0); LYMPHOCYTES PERCENT AUTO 15.2 % (20.5-50.1); MEAN CORPUSCULAR HGB CONC 31.6 g/dL (33.0-35.0); MEAN CORPUSCULAR VOLUME 101.6 fL (80-100); MONOCYTES PERCENT AUTO 10.2 % (2-8); NEUTROPHILS PERCENT AUTO 71.7 % (42.2-75.2); PLATELET COUNT,PLT 294 10^3/uL (150-450); RED BLOOD CELL COUNT 3.87 10^6/uL (4.2-5.4); WHITE BLOOD CELL COUNT,WBC 12.1 10^3/uL (5.0-10.0)
[2024-01-01 06:54] LABS: ALBUMIN 2.5 g/dL (3.4-5.0); ANION GAP 13.9 mEq/L (7-13); BILIRUBIN TOTAL 0.6 mg/dL (0.2-1.0); BUN/CREATININE RATIO 19.6 (No establ ref range); CALCIUM 9.2 mg/dL (8.5-10.1); CREATININE 1.94 mg/dL (0.55-1.02); EST CRCL DRUG DOSING (CG) 16.06 mL/min; MAGNESIUM 2.2 mg/dL (1.8-2.4); POTASSIUM,K 4.9 mmol/L (3.5-5.1)
[2024-01-01 06:59] LABS: A/G RATIO 0.71
[2024-01-01 07:24] LABS: INR 1.1 (0.9-1.2); PROTHROMBIN TIME 11.3 SEC (9.0-12.0)
[2024-01-01] MEDS: DULoxetine 30 MG Cap PO SCH (09:17)
[2024-01-01] MEDS: Aspirin 81 MG Tab.EC PO SCH (09:18)
[2024-01-01] MEDS: Pantoprazole 40 MG Tab.CR PO SCH (09:19)
[2024-01-01] MEDS: Ferrous Sulfate 325 MG Tab PO SCH (09:24)
[2024-01-01] MEDS: Bumetanide 1 MG Tab PO SCH ×2 (09:25→13:06)
[2024-01-01] MEDS ORDERED: Oxymetazoline 0.05% Nasal Spray 30 ML Bottle NASBOTH PRN (09:27)
[2024-01-01] MEDS: Metoprolol Succinate 25 MG Tab.ER PO SCH (09:27)
[2024-01-01] MEDS: Morphine 15 MG Tab.ER PO ONE (10:00)
[2024-01-01] MEDS: Budesonide 0.5 MG/2 ML Neb Susp NEB SCH (16:44)
[2024-01-01] MEDS: Sodium Chloride 0.9% 1,000 ML IV SCH (18:07)
[2024-01-01] MEDS: Morphine 15 MG Tab.ER PO SCH (20:59)
[2024-01-02 06:32] LABS: BASOPHILS PERCENT AUTO 0.4 % (0.0-1.0); EOSINOPHILS PERCENT AUTO 3.7 % (1.0-3.0); HEMOGLOBIN 12.9 g/dL (12.0-16.0); LYMPHOCYTES PERCENT AUTO 17.5 % (20.5-50.1); MEAN CORPUSCULAR HEMOGLOBIN 33.2 pg (27.0-34.0); MEAN CORPUSCULAR HGB CONC 33.1 g/dL (33.0-35.0); MEAN CORPUSCULAR VOLUME 100.3 fL (80-100); MONOCYTES PERCENT AUTO 10.5 % (2-8); NEUTROPHILS PERCENT AUTO 67.9 % (42.2-75.2); PLATELET COUNT,PLT 290 10^3/uL (150-450); RED BLOOD CELL COUNT 3.89 10^6/uL (4.2-5.4); WHITE BLOOD CELL COUNT,WBC 9.5 10^3/uL (5.0-10.0)
[2024-01-02 07:54] LABS: ALBUMIN 2.5 g/dL (3.4-5.0); ANION GAP 10.4 mEq/L (7-13); BILIRUBIN TOTAL 0.6 mg/dL (0.2-1.0); BUN/CREATININE RATIO 15.6 (No establ ref range); CALCIUM 9.5 mg/dL (8.5-10.1); CREATININE 1.6 mg/dL (0.55-1.02); EST CRCL DRUG DOSING (CG) 19.47 mL/min; POTASSIUM,K 4.4 mmol/L (3.5-5.1); PROTEIN TOTAL,TP 6.2 g/dL (6.4-8.2)
[2024-01-02 07:58] LABS: A/G RATIO 0.68
[2024-01-02] MEDS ORDERED: Sodium Chloride 0.9% 1,000 ML IV SCH (08:15)
[2024-01-02] MEDS: Potassium Chloride 10 MEQ Tab.ER PO SCH (09:16)
[2024-01-02] MEDS: YUPELRI 175 MCG/3 ML INH SCH (09:49)
[2024-01-02] MEDS: Acetaminophen 325 MG Tab PO PRN (12:48)
[2024-01-03] MEDS: Docusate Sodium 100 MG Cap PO PRN (03:06)
[2024-01-03 06:00] LABS: BASOPHILS PERCENT AUTO 0.6 % (0.0-1.0); HEMATOCRIT 38.8 % (37.0-47.0); HEMOGLOBIN 12.9 g/dL (12.0-16.0); MEAN CORPUSCULAR HEMOGLOBIN 32.5 pg (27.0-34.0); MEAN CORPUSCULAR HGB CONC 33.2 g/dL (33.0-35.0); MEAN CORPUSCULAR VOLUME 97.7 fL (80-100); MONOCYTES PERCENT AUTO 11.1 % (2-8); NEUTROPHILS PERCENT AUTO 66.3 % (42.2-75.2); PLATELET COUNT,PLT 296 10^3/uL (150-450); RED BLOOD CELL COUNT 3.97 10^6/uL (4.2-5.4); WHITE BLOOD CELL COUNT,WBC 10.4 10^3/uL (5.0-10.0)
[2024-01-03 06:21] LABS: A/G RATIO 0.68; ALBUMIN 2.5 g/dL (3.4-5.0); ANION GAP 10.1 mEq/L (7-13); BILIRUBIN TOTAL 0.6 mg/dL (0.2-1.0); BUN/CREATININE RATIO 14.9 (No establ ref range); CALCIUM 9.9 mg/dL (8.5-10.1); CREATININE 1.48 mg/dL (0.55-1.02); EST CRCL DRUG DOSING (CG) 21.05 mL/min; POTASSIUM,K 4.1 mmol/L (3.5-5.1); PROTEIN TOTAL,TP 6.2 g/dL (6.4-8.2)
[2024-01-03] MEDS ORDERED: Spironolactone 25 MG Tab PO SCH (09:45)
[2024-01-03] MEDS: Spironolactone 25 MG Tab PO SCH (10:35)
[2024-01-04 06:17] LABS: BASOPHILS PERCENT AUTO 0.5 % (0.0-1.0); EOSINOPHILS PERCENT AUTO 4.8 % (1.0-3.0); LYMPHOCYTES PERCENT AUTO 21.9 % (20.5-50.1); MEAN CORPUSCULAR HEMOGLOBIN 32.5 pg (27.0-34.0); MEAN CORPUSCULAR HGB CONC 33.3 g/dL (33.0-35.0); MEAN CORPUSCULAR VOLUME 97.5 fL (80-100); MONOCYTES PERCENT AUTO 11.4 % (2-8); NEUTROPHILS PERCENT AUTO 61.4 % (42.2-75.2); PLATELET COUNT,PLT 322 10^3/uL (150-450); WHITE BLOOD CELL COUNT,WBC 10.8 10^3/uL (5.0-10.0)
[2024-01-04 06:39] LABS: A/G RATIO 0.74; ALBUMIN 2.8 g/dL (3.4-5.0); ANION GAP 11.9 mEq/L (7-13); BILIRUBIN TOTAL 0.3 mg/dL (0.2-1.0); BUN/CREATININE RATIO 15.6 (No establ ref range); CALCIUM 10.1 mg/dL (8.5-10.1); CREATININE 1.47 mg/dL (0.55-1.02); EST CRCL DRUG DOSING (CG) 21.19 mL/min; POTASSIUM,K 3.9 mmol/L (3.5-5.1); PROTEIN TOTAL,TP 6.6 g/dL (6.4-8.2)
[2024-01-04] MEDS: Fluconazole 100 MG Tab PO ONE (09:34)
== END 2024-01-04 11:00 | DRG 683 ==
LOC: DL.ED 14:38 → DL.MS 17:21
PROVIDERS: ADMIT Emergency Medicine; ATTEND Internal Medicine
DX: N17.9 Acute kidney failure, unspecified (principal); N39.0 Urinary tract infection, site not specified; I95.9 Hypotension, unspecified; I48.91 Unspecified atrial fibrillation; I25.10 Atherosclerotic heart disease of native coronary artery without angina pectoris; J44.9 Chronic obstructive pulmonary disease, unspecified; D72.829 Elevated white blood cell count, unspecified; Z86.16 Personal history of COVID-19; Z66 Do not resuscitate; I50.9 Heart failure, unspecified; E66.9 Obesity, unspecified; I25.2 Old myocardial infarction; Z79.82 Long term (current) use of aspirin; Z88.0 Allergy status to penicillin; Z88.8 Allergy status to other drugs, medicaments and biological substances; K21.9 Gastro-esophageal reflux disease without esophagitis; D64.9 Anemia, unspecified; E87.5 Hyperkalemia; E86.0 Dehydration; M19.90 Unspecified osteoarthritis, unspecified site; Z79.01 Long term (current) use of anticoagulants; Z79.52 Long term (current) use of systemic steroids; Z87.891 Personal history of nicotine dependence; Z79.899 Other long term (current) drug therapy; Z95.5 Presence of coronary angioplasty implant and graft; Z90.49 Acquired absence of other specified parts of digestive tract; Z90.89 Acquired absence of other organs; Z98.49 Cataract extraction status, unspecified eye; Z90.721 Acquired absence of ovaries, unilateral; Z96.659 Presence of unspecified artificial knee joint; Z98.890 Other specified postprocedural states; Z86.73 Personal history of transient ischemic attack (TIA), and cerebral infarction without residual deficits; Z68.34 Body mass index [BMI] 34.0-34.9, adult
CPT/HCPCS: 36415; 51702; 70450; 71045; 71046; 80053; 81001; 82803; 82947; 83605; 83690; 83735; 83880; 84145; 84484; 85025; 85610; 85730; 87040; 87086; 93005; 93010; 93971; 94640; 96374; 97165-GO; 99223; 99233; 99239; 99284; 99285-25; A9270-GY; J0696; J3490; J7030; J7040

== ENCOUNTER 2024-02-11 08:44 | Emergency (ER) | payer MEDICARE, MEDICAID | END 2024-02-11 11:38 | disposition home or self-care (01) | LOC: DL.ED 08:44 | DX: S29.012A Strain of muscle and tendon of back wall of thorax, initial encounter (principal); S00.93XA Contusion of unspecified part of head, initial encounter; I25.2 Old myocardial infarction; J44.9 Chronic obstructive pulmonary disease, unspecified; K21.9 Gastro-esophageal reflux disease without esophagitis; E66.9 Obesity, unspecified; Z86.16 Personal history of COVID-19; Z95.5 Presence of coronary angioplasty implant and graft; Z90.49 Acquired absence of other specified parts of digestive tract; Z79.899 Other long term (current) drug therapy; Z79.82 Long term (current) use of aspirin; Z79.891 Long term (current) use of opiate analgesic; Z79.01 Long term (current) use of anticoagulants; Z88.8 Allergy status to other drugs, medicaments and biological substances; Z88.0 Allergy status to penicillin; W19.XXXA Unspecified fall, initial encounter | CPT/HCPCS: 70450; 72128; 99283 ==

== ENCOUNTER 2024-02-16 01:28 | Inpatient (IN) | payer MEDICARE, MEDICAID ==
[2024-02-16] MEDS ORDERED: Sodium Chloride 0.9% 10 ML Syringe FLUSH PRN (01:37)
[2024-02-16] MEDS: Albuterol/Ipratropium 3.0-0.5 MG/3 ML Neb Soln NEB ONE (01:50)
[2024-02-16 02:00] LABS: BASOPHILS PERCENT AUTO 0.4 % (0.0-1.0); EOSINOPHILS PERCENT AUTO 0.8 % (1.0-3.0); HEMATOCRIT 41.6 % (37.0-47.0); HEMOGLOBIN 13.4 g/dL (12.0-16.0); MEAN CORPUSCULAR HEMOGLOBIN 31.5 pg (27.0-34.0); MEAN CORPUSCULAR HGB CONC 32.2 g/dL (33.0-35.0); MEAN CORPUSCULAR VOLUME 97.9 fL (80-100); MONOCYTES PERCENT AUTO 13.7 % (2-8); NEUTROPHILS PERCENT AUTO 74.1 % (42.2-75.2); PLATELET COUNT,PLT 276 10^3/uL (150-450); RED BLOOD CELL COUNT 4.25 10^6/uL (4.2-5.4); WHITE BLOOD CELL COUNT,WBC 12.3 10^3/uL (5.0-10.0)
[2024-02-16 02:23] LABS: ALBUMIN 3.1 g/dL (3.4-5.0); ANION GAP 15.3 mEq/L (7-13); BUN/CREATININE RATIO 14.5 (No establ ref range); C-REACTIVE PROTEIN 7.99 ng/dL (<=0.50); CALCIUM 9.7 mg/dL (8.5-10.1); CREATININE 1.72 mg/dL (0.55-1.02); EST CRCL DRUG DOSING (CG) 18.11 mL/min; MAGNESIUM 2.1 mg/dL (1.8-2.4); POTASSIUM,K 4.3 mmol/L (3.5-5.1); PROTEIN TOTAL,TP 7.1 g/dL (6.4-8.2)
[2024-02-16 02:25] LABS: A/G RATIO 0.78
[2024-02-16 02:28] LABS: APPEARANCE,URINE CLOUDY (CLEAR); BILIRUBIN,URINE NEGATIVE (NEGATIVE); COLOR,URINE YELLOW (YELLOW); GLUCOSE,URINE NEGATIVE (NEGATIVE); KETONES,URINE NEGATIVE (NEGATIVE); LEUKOCYTE ESTERASE,URINE TRACE (NEGATIVE); NITRITE,URINE NEGATIVE (NEGATIVE); OCCULT BLOOD,URINE TRACE-INTACT (NEGATIVE); PH,URINE 5.5 (5.0-9.0); PROTEIN,URINE 30 (NEGATIVE); UROBILINOGEN,URINE 0.2 mg/dL (0.2-1.0)
[2024-02-16 02:40] LABS: BACTERIA,URINE MANY /HPF (0-FEW/HPF); EPITHELIAL CELLS,URINE FEW /HPF (NOT SEEN); RBC,URINE 0-5 /HPF (0-5); WBC,URINE 20-30 /HPF (0-5/HPF)
[2024-02-16] MEDS: methylPREDNISolone Sodium Succinate 40 MG/1 ML SDV IVPUSH ONE (02:43)
[2024-02-16] MEDS: Azithromycin 500 MG in Sodium Chloride 0.9% 250 ML IV ONE (02:55)
[2024-02-16] MEDS ORDERED: Magnesium Hydroxide 400 MG/5 ML Susp 30 ML Cup PO PRN (02:56)
[2024-02-16] MEDS ORDERED: Polyethylene Glycol 3350 Powder 17 GM Packet PO PRN (02:56)
[2024-02-16] MEDS ORDERED: Bisacodyl 5 MG Tab PO PRN (02:56)
[2024-02-16] MEDS ORDERED: Naloxone 2 MG/2 ML Syringe IVPUSH PRN (02:56)
[2024-02-16] MEDS ORDERED: Ondansetron 4 MG/2 ML SDV IVPUSH PRN (02:56)
[2024-02-16] MEDS: cefTRIAXone 1 GM Vial IVPUSH ONE (03:00)
[2024-02-16] MEDS ORDERED: Metoprolol Tartrate 5 MG/5 ML SDV IVPUSH PRN (03:06)
[2024-02-16] MEDS ORDERED: hydrALAZINE 20 MG/ML SDV IVPUSH PRN (03:06)
[2024-02-16] MEDS: methylPREDNISolone Sodium Succinate 40 MG/1 ML SDV IVPUSH SCH (06:24)
[2024-02-16] MEDS: Pantoprazole 40 MG Tab.CR PO SCH (06:24)
[2024-02-16] MEDS: Sodium Chloride 0.9% 1,000 ML IV SCH (06:25)
[2024-02-16] MEDS: Arformoterol 15 MCG/2 ML Neb Soln NEB SCH (06:25)
[2024-02-16] MEDS ORDERED: Glucagon,Human Recombinant 1 MG Vial IM PRN (06:41)
[2024-02-16] MEDS ORDERED: 50% Dextrose in Water 50 ML Syringe IVPUSH PRN (06:41)
[2024-02-16] MEDS ORDERED: Magnesium Sulfate/D5W 1 GM/100 ML BAG IV ONE (08:00)
[2024-02-16 08:05] LABS: CORONAVIRUS COVID-19 NAA NEGATIVE (NEGATIVE); INFLUENZA A NAA NEGATIVE (NEGATIVE); INFLUENZA B NAA NEGATIVE (NEGATIVE); RESPIRATORY SYNCYTIAL VIR NAA NEGATIVE (NEGATIVE)
[2024-02-16] MEDS ORDERED: guaiFENesin 600 MG Tab.ER PO SCH (09:00)
[2024-02-16] MEDS ORDERED: Ferrous Sulfate 325 MG Tab PO SCH (09:00)
[2024-02-16] MEDS ORDERED: Non-Formulary Medication 1 Each (Formoterol Fumarate [Formoterol Fumarate] 20 MCG/2 ML Via IH SCH (09:00)
[2024-02-16] MEDS ORDERED: DULoxetine 30 MG Cap PO SCH (09:00)
[2024-02-16] MEDS ORDERED: APIXABAN 5 MG PO SCH (09:00)
[2024-02-16] MEDS: Aspirin 81 MG Tab.EC PO SCH (09:26)
[2024-02-16] MEDS: guaiFENesin 600 MG Tab.ER PO ONE (09:27)
[2024-02-16] MEDS: DULoxetine 30 MG Cap PO SCH (09:27)
[2024-02-16] MEDS: Magnesium Oxide 400 MG Tab PO SCH (09:27)
[2024-02-16] MEDS: Metoprolol Succinate 25 MG Tab.ER PO SCH (09:28)
[2024-02-16] MEDS: Tolterodine 2 MG Tab PO SCH (09:29)
[2024-02-16] MEDS: Budesonide 0.5 MG/2 ML Neb Susp NEB SCH (09:45)
[2024-02-16] MEDS: Insulin Lispro 100 Units/ML 3 ML Vial SUBCUT SCH (09:45)
[2024-02-16] MEDS: Magnesium Sulfate/D5W 1 GM IV ONE (09:47)
[2024-02-16] MEDS: Morphine 15 MG Tab.ER PO SCH (09:57)
[2024-02-16] MEDS: YUPELRI INH ONE (13:36)
[2024-02-16] MEDS: guaiFENesin 600 MG Tab.ER PO SCH (13:36)
[2024-02-16] MEDS: Midodrine 5 MG Tab PO SCH (17:17)
[2024-02-16] MEDS: Rivaroxaban 10 MG Tab PO SCH (17:17)
[2024-02-16] MEDS: traMADol 50 MG Tab PO PRN (18:16)
[2024-02-16] MEDS: HYDROmorphone 0.5 MG/0.5 ML Syringe IVPUSH PRN (19:11)
[2024-02-17] MEDS: rOPINIRole 0.25 MG Tab PO SCH (00:37)
[2024-02-17] MEDS: Ferrous Sulfate 325 MG Tab PO SCH (00:38)
[2024-02-17] MEDS: Ascorbic Acid 500 MG Tab PO SCH (00:38)
[2024-02-17] MEDS: Albuterol/Ipratropium 3.0-0.5 MG/3 ML Neb Soln NEB PRN (03:08)
[2024-02-17] MEDS: Benzocaine/Cetylpyridinium/Menthol Lozenge MUCMEM PRN (03:09)
[2024-02-17] MEDS: Pantoprazole 40 MG Tab.CR PO SCH (05:13)
[2024-02-17] MEDS: YUPELRI INH SCH (06:57)
[2024-02-17] MEDS: Azithromycin 500 MG in Sodium Chloride 0.9% 250 ML IV SCH (09:15)
[2024-02-17] MEDS: cefTRIAXone 2 GM Vial IVPUSH SCH (09:15)
[2024-02-17] MEDS: Melatonin 3 MG Tab PO PRN (21:51)
[2024-02-17] MEDS: Ziprasidone Mesylate 20 MG Vial IM PRN (23:47)
[2024-02-18 06:18] LABS: HEMATOCRIT 39.8 % (37.0-47.0); HEMOGLOBIN 12.8 g/dL (12.0-16.0); LYMPHOCYTES PERCENT AUTO 5.2 % (20.5-50.1); MEAN CORPUSCULAR HEMOGLOBIN 30.8 pg (27.0-34.0); MEAN CORPUSCULAR HGB CONC 32.2 g/dL (33.0-35.0); MEAN CORPUSCULAR VOLUME 95.9 fL (80-100); MONOCYTES PERCENT AUTO 2.7 % (2-8); NEUTROPHILS PERCENT AUTO 92.1 % (42.2-75.2); PLATELET COUNT,PLT 346 10^3/uL (150-450); RED BLOOD CELL COUNT 4.15 10^6/uL (4.2-5.4); WHITE BLOOD CELL COUNT,WBC 15.7 10^3/uL (5.0-10.0)
[2024-02-18 06:42] LABS: ALBUMIN 2.9 g/dL (3.4-5.0); ANION GAP 15.3 mEq/L (7-13); BILIRUBIN TOTAL 0.4 mg/dL (0.2-1.0); BUN/CREATININE RATIO 22.4 (No establ ref range); CREATININE 1.61 mg/dL (0.55-1.02); EST CRCL DRUG DOSING (CG) 19.35 mL/min; MAGNESIUM 2.6 mg/dL (1.8-2.4); POTASSIUM,K 4.3 mmol/L (3.5-5.1); PROTEIN TOTAL,TP 6.8 g/dL (6.4-8.2)
[2024-02-18 06:45] LABS: A/G RATIO 0.74
[2024-02-18] MEDS: Modafinil 100 MG Tab PO ONE (10:27)
[2024-02-19 06:36] LABS: BASOPHILS PERCENT AUTO 0.1 % (0.0-1.0); HEMATOCRIT 40.1 % (37.0-47.0); HEMOGLOBIN 12.6 g/dL (12.0-16.0); LYMPHOCYTES PERCENT AUTO 5.9 % (20.5-50.1); MEAN CORPUSCULAR HEMOGLOBIN 30.4 pg (27.0-34.0); MEAN CORPUSCULAR HGB CONC 31.4 g/dL (33.0-35.0); MEAN CORPUSCULAR VOLUME 96.6 fL (80-100); MONOCYTES PERCENT AUTO 4.5 % (2-8); NEUTROPHILS PERCENT AUTO 89.5 % (42.2-75.2); PLATELET COUNT,PLT 332 10^3/uL (150-450); RED BLOOD CELL COUNT 4.15 10^6/uL (4.2-5.4); WHITE BLOOD CELL COUNT,WBC 10.2 10^3/uL (5.0-10.0)
[2024-02-19 07:05] LABS: ALBUMIN 2.8 g/dL (3.4-5.0); ANION GAP 12.4 mEq/L (7-13); BILIRUBIN TOTAL 0.4 mg/dL (0.2-1.0); BUN/CREATININE RATIO 26.5 (No establ ref range); C-REACTIVE PROTEIN 0.83 ng/dL (<=0.50); CALCIUM 9.9 mg/dL (8.5-10.1); CREATININE 1.51 mg/dL (0.55-1.02); EST CRCL DRUG DOSING (CG) 20.63 mL/min; MAGNESIUM 2.7 mg/dL (1.8-2.4); POTASSIUM,K 4.4 mmol/L (3.5-5.1); PROTEIN TOTAL,TP 6.5 g/dL (6.4-8.2)
[2024-02-19 07:07] LABS: A/G RATIO 0.76
[2024-02-19] MEDS: Modafinil 100 MG Tab PO SCH (10:29)
[2024-02-19] MEDS: Apixaban 5 MG Tab PO SCH (10:29)
[2024-02-19] MEDS: methylPREDNISolone Sodium Succinate 40 MG/1 ML SDV IVPUSH SCH (15:08)
[2024-02-19 17:17] LABS: O2 DELIVERY DEVICE NASAL CANNULA
[2024-02-19 17:19] LABS: O2 SATURATION ARTERIAL 97 % (95-100); PCO2 ARTERIAL 32 mmHg (35-45); PH,ARTERIAL 7.45 (7.35-7.45); PO2 ARTERIAL 78 mmHg (70-100)
[2024-02-19 17:20] LABS: ALLEN TEST POSITIVE; BASE EXCESS ARTERIAL -2 mmol/L ((-2)-(+3)); BICARBONATE,ARTERIAL 21.3 mmol/L (22-26)
[2024-02-20 06:50] LABS: HEMATOCRIT 40.1 % (37.0-47.0); HEMOGLOBIN 12.8 g/dL (12.0-16.0); MEAN CORPUSCULAR HEMOGLOBIN 30.5 pg (27.0-34.0); MEAN CORPUSCULAR HGB CONC 31.9 g/dL (33.0-35.0); MEAN CORPUSCULAR VOLUME 95.7 fL (80-100); PLATELET COUNT,PLT 316 10^3/uL (150-450); RED BLOOD CELL COUNT 4.19 10^6/uL (4.2-5.4); WHITE BLOOD CELL COUNT,WBC 9.9 10^3/uL (5.0-10.0)
[2024-02-20 07:16] LABS: LYMPHOCYTES PERCENT AUTO 8.2 % (20.5-50.1); MONOCYTES PERCENT AUTO 5.4 % (2-8); NEUTROPHILS PERCENT AUTO 86.4 % (42.2-75.2)
[2024-02-20 07:24] LABS: ALANINE AMINOTRANSFERASE,ALT 31 U/L (14-59); ALBUMIN 2.8 g/dL (3.4-5.0); ALKALINE PHOSPHATASE 129 U/L (46-116); ANION GAP 15.6 mEq/L (7-13); ASPARTATE AMNIOTRANSFERASE,AST 20 U/L (15-37); BILIRUBIN TOTAL 0.4 mg/dL (0.2-1.0); BLOOD UREA NITROGEN,BUN 44 mg/dL (7-18); BUN/CREATININE RATIO 28.6 (No establ ref range); CALCIUM 9.5 mg/dL (8.5-10.1); CARBON DIOXIDE,CO2 24 mmol/L (21-32); CHLORIDE,CL 103 mmol/L (98-107); CREATININE 1.54 mg/dL (0.55-1.02); EST CRCL DRUG DOSING (CG) 20.23 mL/min; GLUCOSE RANDOM 168 mg/dL (70-99); MAGNESIUM 2.6 mg/dL (1.8-2.4); POTASSIUM,K 4.6 mmol/L (3.5-5.1); PROTEIN TOTAL,TP 6.3 g/dL (6.4-8.2); SODIUM,NA 138 mmol/L (136-145)
[2024-02-20 07:30] LABS: C-REACTIVE PROTEIN < 0.50 ng/dL (<=0.50); ESTIMATED GFR 34 mL/min (>=60)
[2024-02-20 07:45] LABS: LYMPHOCYTES PERCENT MAN 6 % (20-50); MONOCYTES PERCENT MAN 4 % (2-8); SEG NEUTROPHILS PERCENT MAN 90 % (42-75)
[2024-02-20] MEDS: Acetaminophen 325 MG Tab PO PRN (09:54)
[2024-02-20] MEDS: Morphine 15 MG Tab.ER PO ONE (10:35)
[2024-02-20] MEDS: rOPINIRole 0.25 MG Tab PO ONE ×2 (13:37→15:02)
[2024-02-20] MEDS: Gabapentin 100 MG Cap PO ONE ×2 (13:37→15:02)
[2024-02-20] MEDS: methylPREDNISolone Sodium Succinate 40 MG/1 ML SDV IVPUSH SCH (20:49)
[2024-02-20] MEDS: Morphine 15 MG Tab.ER PO SCH (20:50)
[2024-02-21 07:04] LABS: BASOPHILS PERCENT AUTO 0.1 % (0.0-1.0); HEMATOCRIT 42.8 % (37.0-47.0); HEMOGLOBIN 13.7 g/dL (12.0-16.0); MEAN CORPUSCULAR HEMOGLOBIN 30.6 pg (27.0-34.0); MEAN CORPUSCULAR VOLUME 95.7 fL (80-100); MONOCYTES PERCENT AUTO 6.4 % (2-8); NEUTROPHILS PERCENT AUTO 87.5 % (42.2-75.2); PLATELET COUNT,PLT 335 10^3/uL (150-450); RED BLOOD CELL COUNT 4.47 10^6/uL (4.2-5.4); WHITE BLOOD CELL COUNT,WBC 12.3 10^3/uL (5.0-10.0)
[2024-02-21 07:25] LABS: ALANINE AMINOTRANSFERASE,ALT 35 U/L (14-59); ALBUMIN 2.9 g/dL (3.4-5.0); ALKALINE PHOSPHATASE 136 U/L (46-116); ASPARTATE AMNIOTRANSFERASE,AST 20 U/L (15-37); BILIRUBIN TOTAL 0.5 mg/dL (0.2-1.0); BLOOD UREA NITROGEN,BUN 42 mg/dL (7-18); BUN/CREATININE RATIO 26.4 (No establ ref range); CALCIUM 9.4 mg/dL (8.5-10.1); CARBON DIOXIDE,CO2 28 mmol/L (21-32); CHLORIDE,CL 103 mmol/L (98-107); CREATININE 1.59 mg/dL (0.55-1.02); EST CRCL DRUG DOSING (CG) 19.59 mL/min; GLUCOSE RANDOM 175 mg/dL (70-99); MAGNESIUM 2.7 mg/dL (1.8-2.4); PROTEIN TOTAL,TP 6.5 g/dL (6.4-8.2); SODIUM,NA 139 mmol/L (136-145)
[2024-02-21 07:30] LABS: A/G RATIO 0.81; C-REACTIVE PROTEIN < 0.50 ng/dL (<=0.50); ESTIMATED GFR 32 mL/min (>=60)
[2024-02-21] MEDS: DULoxetine 30 MG Cap PO SCH (08:02)
[2024-02-21] MEDS: Tolterodine 2 MG Tab PO SCH (20:37)
[2024-02-22 06:32] LABS: HEMATOCRIT 41.4 % (37.0-47.0); HEMOGLOBIN 13.3 g/dL (12.0-16.0); LYMPHOCYTES PERCENT AUTO 6.6 % (20.5-50.1); MEAN CORPUSCULAR HEMOGLOBIN 30.6 pg (27.0-34.0); MEAN CORPUSCULAR HGB CONC 32.1 g/dL (33.0-35.0); MEAN CORPUSCULAR VOLUME 95.4 fL (80-100); MONOCYTES PERCENT AUTO 6.5 % (2-8); NEUTROPHILS PERCENT AUTO 86.9 % (42.2-75.2); PLATELET COUNT,PLT 342 10^3/uL (150-450); RED BLOOD CELL COUNT 4.34 10^6/uL (4.2-5.4); WHITE BLOOD CELL COUNT,WBC 13.2 10^3/uL (5.0-10.0)
[2024-02-22 07:03] LABS: ALANINE AMINOTRANSFERASE,ALT 37 U/L (14-59); ALBUMIN 2.9 g/dL (3.4-5.0); ALKALINE PHOSPHATASE 130 U/L (46-116); ANION GAP 12.9 mEq/L (7-13); ASPARTATE AMNIOTRANSFERASE,AST 11 U/L (15-37); BILIRUBIN TOTAL 0.3 mg/dL (0.2-1.0); BLOOD UREA NITROGEN,BUN 39 mg/dL (7-18); BUN/CREATININE RATIO 27.3 (No establ ref range); CALCIUM 9.1 mg/dL (8.5-10.1); CARBON DIOXIDE,CO2 25 mmol/L (21-32); CHLORIDE,CL 103 mmol/L (98-107); CREATININE 1.43 mg/dL (0.55-1.02); EST CRCL DRUG DOSING (CG) 21.79 mL/min; GLUCOSE RANDOM 164 mg/dL (70-99); POTASSIUM,K 4.9 mmol/L (3.5-5.1); PROTEIN TOTAL,TP 6.1 g/dL (6.4-8.2); SODIUM,NA 136 mmol/L (136-145)
[2024-02-22 07:05] LABS: A/G RATIO 0.91; C-REACTIVE PROTEIN < 0.50 ng/dL (<=0.50); ESTIMATED GFR 37 mL/min (>=60)
[2024-02-22] MEDS: Spironolactone 25 MG Tab PO SCH (08:56)
[2024-02-22] MEDS: Bumetanide 1 MG Tab PO SCH (08:56)
[2024-02-22] MEDS ORDERED: DULoxetine 30 MG Cap PO SCH (09:00)
[2024-02-22] MEDS ORDERED: Morphine 15 MG Tab.ER PO SCH (09:30)
[2024-02-22] MEDS: FLU (Fluad Triv) TS24-25 (65UP)/MF59C/PF 45 MCG/0.5 ML Syringe IM ONE (12:29)
[2024-02-22] MEDS ORDERED: rOPINIRole 0.25 MG Tab PO SCH (21:00)
== END 2024-02-22 13:12 | DRG 189 ==
LOC: DL.ED 01:28 → DL.MS 02:47
PROVIDERS: ADMIT Internal Medicine; ATTEND Internal Medicine
DX: J43.9 Emphysema, unspecified (principal); J96.21 Acute and chronic respiratory failure with hypoxia; N30.00 Acute cystitis without hematuria; G93.41 Metabolic encephalopathy; N39.0 Urinary tract infection, site not specified; E66.9 Obesity, unspecified; Z86.16 Personal history of COVID-19; J44.1 Chronic obstructive pulmonary disease with (acute) exacerbation; Z79.82 Long term (current) use of aspirin; Z79.01 Long term (current) use of anticoagulants; Z79.899 Other long term (current) drug therapy; Z66 Do not resuscitate; K21.9 Gastro-esophageal reflux disease without esophagitis; I12.9 Hypertensive chronic kidney disease with stage 1 through stage 4 chronic kidney disease, or unspecified chronic kidney disease; D63.1 Anemia in chronic kidney disease; F03.90 Unspecified dementia, unspecified severity, without behavioral disturbance, psychotic disturbance, mood disturbance, and anxiety; E83.52 Hypercalcemia; G25.81 Restless legs syndrome; E88.09 Other disorders of plasma-protein metabolism, not elsewhere classified; E66.812 Obesity, class 2; B96.20 Unspecified Escherichia coli [E. coli] as the cause of diseases classified elsewhere; R73.9 Hyperglycemia, unspecified; N18.30 Chronic kidney disease, stage 3 unspecified; I25.10 Atherosclerotic heart disease of native coronary artery without angina pectoris; Z96.653 Presence of artificial knee joint, bilateral; Z95.5 Presence of coronary angioplasty implant and graft; Z86.73 Personal history of transient ischemic attack (TIA), and cerebral infarction without residual deficits; Z87.891 Personal history of nicotine dependence; Z68.35 Body mass index [BMI] 35.0-35.9, adult; Z91.148 Patient's other noncompliance with medication regimen for other reason; Z88.0 Allergy status to penicillin; Z88.8 Allergy status to other drugs, medicaments and biological substances; I25.2 Old myocardial infarction; Z98.42 Cataract extraction status, left eye; Z98.41 Cataract extraction status, right eye; Z90.49 Acquired absence of other specified parts of digestive tract; Z90.722 Acquired absence of ovaries, bilateral; T42.8X5A Adverse effect of antiparkinsonism drugs and other central muscle-tone depressants, initial encounter; T40.2X5A Adverse effect of other opioids, initial encounter; T42.6X5A Adverse effect of other antiepileptic and sedative-hypnotic drugs, initial encounter; Y92.89 Other specified places as the place of occurrence of the external cause
CPT/HCPCS: 0241U; 36415; 36600; 70450; 71045; 80053; 81001; 82803; 82947; 83735; 83880; 84484; 85025; 86140; 87081; 87086; 87088; 87186; 87428; 87430; 90653; 94640; 96374; 97165; 97530; 99285; 99284; A9270-GY; G0008; J0456; J0696; J1171; J1815-GY; J2919; J3475; J3486; J3490; J7030; J7050; J7620-GY

== ENCOUNTER 2024-03-26 16:23 | Emergency (ER) | payer MEDICARE, MEDICAID ==
[2024-03-26 17:08] LABS: HEMATOCRIT 42.5 % (37.0-47.0); HEMOGLOBIN 12.9 g/dL (12.0-16.0); MEAN CORPUSCULAR HEMOGLOBIN 29.7 pg (27.0-34.0); MEAN CORPUSCULAR HGB CONC 30.4 g/dL (33.0-35.0); MEAN CORPUSCULAR VOLUME 97.9 fL (80-100); PLATELET COUNT,PLT 323 10^3/uL (150-450); RED BLOOD CELL COUNT 4.34 10^6/uL (4.2-5.4); WHITE BLOOD CELL COUNT,WBC 15.1 10^3/uL (5.0-10.0)
[2024-03-26 17:12] LABS: BASOPHILS PERCENT AUTO 0.7 % (0.0-1.0); EOSINOPHILS PERCENT AUTO 1.5 % (1.0-3.0); LYMPHOCYTES PERCENT AUTO 14.9 % (20.5-50.1); MONOCYTES PERCENT AUTO 12.4 % (2-8); NEUTROPHILS PERCENT AUTO 70.5 % (42.2-75.2)
[2024-03-26 17:26] LABS: LYMPHOCYTES PERCENT MAN 17 % (20-50); MONOCYTES PERCENT MAN 16 % (2-8); SEG NEUTROPHILS PERCENT MAN 65 % (42-75)
[2024-03-26 17:27] LABS: EOSINOPHILS PERCENT MAN 2 % (1-3)
[2024-03-26 17:34] LABS: ALANINE AMINOTRANSFERASE,ALT 13 U/L (14-59); ALBUMIN 3.2 g/dL (3.4-5.0); ALKALINE PHOSPHATASE 224 U/L (46-116); ANION GAP 11.3 mEq/L (7-13); ASPARTATE AMNIOTRANSFERASE,AST 14 U/L (15-37); BILIRUBIN TOTAL 0.4 mg/dL (0.2-1.0); BLOOD UREA NITROGEN,BUN 29 mg/dL (7-18); BUN/CREATININE RATIO 16.9 (No establ ref range); CALCIUM 9.6 mg/dL (8.5-10.1); CARBON DIOXIDE,CO2 31 mmol/L (21-32); CHLORIDE,CL 104 mmol/L (98-107); CREATININE 1.72 mg/dL (0.55-1.02); GLUCOSE RANDOM 127 mg/dL (70-99); MAGNESIUM 2.5 mg/dL (1.8-2.4); POTASSIUM,K 5.3 mmol/L (3.5-5.1); PROTEIN TOTAL,TP 6.9 g/dL (6.4-8.2); SODIUM,NA 141 mmol/L (136-145)
[2024-03-26 17:40] LABS: A/G RATIO 0.86; ESTIMATED GFR 29 mL/min (>=60)
[2024-03-26] MEDS: Albuterol/Ipratropium 3.0-0.5 MG/3 ML Neb Soln NEB ONE (17:59)
[2024-03-26 20:38] LABS: APPEARANCE,URINE CLEAR (CLEAR); BILIRUBIN,URINE NEGATIVE (NEGATIVE); COLOR,URINE YELLOW (YELLOW); GLUCOSE,URINE NEGATIVE (NEGATIVE); KETONES,URINE NEGATIVE (NEGATIVE); LEUKOCYTE ESTERASE,URINE MODERATE (NEGATIVE); NITRITE,URINE NEGATIVE (NEGATIVE); OCCULT BLOOD,URINE TRACE-INTACT (NEGATIVE); PH,URINE 5.5 (5.0-9.0); PROTEIN,URINE NEGATIVE (NEGATIVE); UROBILINOGEN,URINE 0.2 mg/dL (0.2-1.0)
[2024-03-26] MEDS: Take Home: Ciprofloxacin HCl 500 MG, 6 Tab Pack PO ONE (20:50)
[2024-03-26 20:58] LABS: BACTERIA,URINE MANY /HPF (0-FEW/HPF); EPITHELIAL CELLS,URINE MODERATE /HPF (NOT SEEN); WBC,URINE >100 /HPF (0-5/HPF)
== END 2024-03-26 21:53 | disposition home or self-care (01) ==
LOC: DL.ED 16:23
DX: N30.00 Acute cystitis without hematuria (principal); I25.10 Atherosclerotic heart disease of native coronary artery without angina pectoris; I25.2 Old myocardial infarction; I48.91 Unspecified atrial fibrillation; I12.9 Hypertensive chronic kidney disease with stage 1 through stage 4 chronic kidney disease, or unspecified chronic kidney disease; N18.30 Chronic kidney disease, stage 3 unspecified; J44.89 Other specified chronic obstructive pulmonary disease; K21.9 Gastro-esophageal reflux disease without esophagitis; M19.90 Unspecified osteoarthritis, unspecified site; E66.9 Obesity, unspecified; Z86.16 Personal history of COVID-19; Z90.49 Acquired absence of other specified parts of digestive tract; Z90.722 Acquired absence of ovaries, bilateral; Z96.659 Presence of unspecified artificial knee joint; Z86.73 Personal history of transient ischemic attack (TIA), and cerebral infarction without residual deficits; Z88.0 Allergy status to penicillin; Z88.8 Allergy status to other drugs, medicaments and biological substances; Z79.01 Long term (current) use of anticoagulants; Z79.51 Long term (current) use of inhaled steroids; Z79.82 Long term (current) use of aspirin; Z79.899 Other long term (current) drug therapy; W01.198A Fall on same level from slipping, tripping and stumbling with subsequent striking against other object, initial encounter
CPT/HCPCS: 36415; 70450; 71045; 72125; 73521; 80053; 81001; 83735; 83880; 84484; 85025; 87086; 93005; 99284; A9270; C1758; 87088; 87186; J7620-GY

== ENCOUNTER 2024-03-29 07:46 | Emergency (ER) | payer MEDICARE, MEDICAID ==
[2024-03-29 08:35] LABS: BASOPHILS PERCENT AUTO 0.4 % (0.0-1.0); EOSINOPHILS PERCENT AUTO 0.9 % (1.0-3.0); HEMATOCRIT 38.2 % (37.0-47.0); LYMPHOCYTES PERCENT AUTO 15.2 % (20.5-50.1); MEAN CORPUSCULAR HEMOGLOBIN 30.1 pg (27.0-34.0); MEAN CORPUSCULAR HGB CONC 31.4 g/dL (33.0-35.0); MEAN CORPUSCULAR VOLUME 95.7 fL (80-100); MONOCYTES PERCENT AUTO 10.6 % (2-8); NEUTROPHILS PERCENT AUTO 72.9 % (42.2-75.2); PLATELET COUNT,PLT 293 10^3/uL (150-450); RED BLOOD CELL COUNT 3.99 10^6/uL (4.2-5.4); WHITE BLOOD CELL COUNT,WBC 9.6 10^3/uL (5.0-10.0)
[2024-03-29 09:09] LABS: ANION GAP 9.5 mEq/L (7-13); BILIRUBIN TOTAL 0.6 mg/dL (0.2-1.0); BUN/CREATININE RATIO 14.6 (No establ ref range); CALCIUM 9.8 mg/dL (8.5-10.1); CREATININE 1.57 mg/dL (0.55-1.02); EST CRCL DRUG DOSING (CG) 19.84 mL/min; POTASSIUM,K 4.5 mmol/L (3.5-5.1); PROTEIN TOTAL,TP 6.4 g/dL (6.4-8.2)
[2024-03-29] MEDS: fentaNYL 100 MCG/2 ML SDV IVPUSH ONE (09:10)
[2024-03-29 09:11] LABS: A/G RATIO 0.88
[2024-03-29 09:12] LABS: INR 1.1 (0.9-1.2)
[2024-03-29] MEDS: Morphine 2 MG/ML SYRINGE IVPUSH ONE (09:39)
[2024-03-29] MEDS: Gabapentin 100 MG Cap PO ONE (10:35)
[2024-03-29] MEDS: Morphine 15 MG Tab.ER PO ONE (10:35)
== END 2024-03-29 11:15 ==
LOC: DL.ED 07:46
DX: M25.551 Pain in right hip (principal); I48.91 Unspecified atrial fibrillation; I25.2 Old myocardial infarction; I25.10 Atherosclerotic heart disease of native coronary artery without angina pectoris; I12.9 Hypertensive chronic kidney disease with stage 1 through stage 4 chronic kidney disease, or unspecified chronic kidney disease; N18.30 Chronic kidney disease, stage 3 unspecified; J44.89 Other specified chronic obstructive pulmonary disease; K21.9 Gastro-esophageal reflux disease without esophagitis; M19.90 Unspecified osteoarthritis, unspecified site; E66.9 Obesity, unspecified; Z68.32 Body mass index [BMI] 32.0-32.9, adult; Z86.73 Personal history of transient ischemic attack (TIA), and cerebral infarction without residual deficits; Z86.16 Personal history of COVID-19; Z90.49 Acquired absence of other specified parts of digestive tract; Z96.659 Presence of unspecified artificial knee joint; Z88.0 Allergy status to penicillin; Z88.8 Allergy status to other drugs, medicaments and biological substances; Z79.51 Long term (current) use of inhaled steroids; Z79.01 Long term (current) use of anticoagulants; Z79.82 Long term (current) use of aspirin; Z79.899 Other long term (current) drug therapy; W19.XXXA Unspecified fall, initial encounter; Y92.129 Unspecified place in nursing home as the place of occurrence of the external cause
CPT/HCPCS: 36415; 70450; 80053; 84484; 85025; 85610; 93005; 93010; 96374; 96375; 99284; 99285-25; A9270-GY; J2270; J3010

== ENCOUNTER 2024-05-18 11:18 | Inpatient (IN) | payer MEDICARE, MEDICAID ==
[2024-05-18 11:51] LABS: BASOPHILS PERCENT AUTO 0.4 % (0.0-1.0); EOSINOPHILS PERCENT AUTO 4.1 % (1.0-3.0); HEMATOCRIT 42.5 % (37.0-47.0); HEMOGLOBIN 13.3 g/dL (12.0-16.0); LYMPHOCYTES PERCENT AUTO 15.9 % (20.5-50.1); MEAN CORPUSCULAR HEMOGLOBIN 28.5 pg (27.0-34.0); MEAN CORPUSCULAR HGB CONC 31.3 g/dL (33.0-35.0); NEUTROPHILS PERCENT AUTO 68.6 % (42.2-75.2); PLATELET COUNT,PLT 212 10^3/uL (150-450); RED BLOOD CELL COUNT 4.67 10^6/uL (4.2-5.4); WHITE BLOOD CELL COUNT,WBC 6.9 10^3/uL (5.0-10.0)
[2024-05-18] MEDS: methylPREDNISolone Sodium Succinate 40 MG/1 ML SDV IVPUSH ONE (12:01)
[2024-05-18 12:10] LABS: B-TYPE NATRIURETIC PEPTIDE,BNP 132 pg/ml (0-100)
[2024-05-18 12:11] LABS: A/G RATIO 0.83; ALANINE AMINOTRANSFERASE,ALT 19 U/L (14-59); ALBUMIN 2.9 g/dL (3.4-5.0); ALKALINE PHOSPHATASE 185 U/L (46-116); ANION GAP 13.2 mEq/L (7-13); ASPARTATE AMNIOTRANSFERASE,AST 16 U/L (15-37); BILIRUBIN TOTAL 0.5 mg/dL (0.2-1.0); BLOOD UREA NITROGEN,BUN 20 mg/dL (7-18); CALCIUM 9.6 mg/dL (8.5-10.1); CARBON DIOXIDE,CO2 29 mmol/L (21-32); CHLORIDE,CL 103 mmol/L (98-107); CREATININE 1.43 mg/dL (0.55-1.02); ESTIMATED GFR 37 mL/min (>=60); GLUCOSE RANDOM 187 mg/dL (70-99); POTASSIUM,K 4.2 mmol/L (3.5-5.1); PROTEIN TOTAL,TP 6.4 g/dL (6.4-8.2); SODIUM,NA 141 mmol/L (136-145)
[2024-05-18] MEDS: Albuterol/Ipratropium 3.0-0.5 MG/3 ML Neb Soln NEB ONE (12:44)
[2024-05-18] MEDS ORDERED: Docusate Sodium 100 MG Cap PO PRN (14:05)
[2024-05-18] MEDS ORDERED: Polyethylene Glycol 3350 Powder 17 GM Packet PO PRN (14:05)
[2024-05-18] MEDS ORDERED: Acetaminophen 325 MG Tab PO PRN (14:05)
[2024-05-18] MEDS ORDERED: Sennosides/Docusate Sodium 50-8.6 MG Tab PO PRN (14:05)
[2024-05-18] MEDS ORDERED: Ondansetron 4 MG/2 ML SDV IVPUSH PRN (14:05)
[2024-05-18] MEDS: Albuterol/Ipratropium 3.0-0.5 MG/3 ML Neb Soln NEB SCH (14:56)
[2024-05-18] MEDS: Azithromycin 500 MG in Sodium Chloride 0.9% 250 ML IV SCH (16:17)
[2024-05-18] MEDS: methylPREDNISolone Sodium Succinate 40 MG/1 ML SDV IVPUSH SCH (16:17)
[2024-05-18 16:18] LABS: CORONAVIRUS COVID-19 NAA NEGATIVE (NEGATIVE); INFLUENZA A NAA NEGATIVE (NEGATIVE); INFLUENZA B NAA NEGATIVE (NEGATIVE); RESPIRATORY SYNCYTIAL VIR NAA NEGATIVE (NEGATIVE)
[2024-05-18] MEDS: Formoterol/Mometasone 200-5 MCG 8.8 GM Inhaler INH SCH (17:34)
[2024-05-18] MEDS: Acetaminophen/HYDROcodone 325-5 MG Tab PO PRN (19:49)
[2024-05-18] MEDS: guaiFENesin 600 MG Tab.ER PO SCH (20:14)
[2024-05-18] MEDS: Morphine 15 MG Tab.ER PO SCH (20:52)
[2024-05-18] MEDS: Tolterodine 2 MG Tab PO SCH (20:52)
[2024-05-18] MEDS: Melatonin 3 MG Tab PO PRN (20:53)
[2024-05-18] MEDS: Gabapentin 100 MG Cap PO SCH (20:53)
[2024-05-18] MEDS: Apixaban 5 MG Tab PO SCH (20:53)
[2024-05-18] MEDS: Sodium Chloride 0.9% 10 ML Syringe FLUSH SCH (23:31)
[2024-05-19] MEDS: Pantoprazole 40 MG Tab.CR PO SCH (05:52)
[2024-05-19] MEDS: Tiotropium Bromide 4 GM Inhalation Spray (2.5mcg/1 dose; 10 doses) INH SCH (05:54)
[2024-05-19 06:26] LABS: BASOPHILS PERCENT AUTO 0.1 % (0.0-1.0); HEMATOCRIT 42.2 % (37.0-47.0); HEMOGLOBIN 12.9 g/dL (12.0-16.0); LYMPHOCYTES PERCENT AUTO 6.4 % (20.5-50.1); MEAN CORPUSCULAR HEMOGLOBIN 27.9 pg (27.0-34.0); MEAN CORPUSCULAR HGB CONC 30.6 g/dL (33.0-35.0); MEAN CORPUSCULAR VOLUME 91.1 fL (80-100); MONOCYTES PERCENT AUTO 3.3 % (2-8); NEUTROPHILS PERCENT AUTO 90.2 % (42.2-75.2); PLATELET COUNT,PLT 234 10^3/uL (150-450); RED BLOOD CELL COUNT 4.63 10^6/uL (4.2-5.4); WHITE BLOOD CELL COUNT,WBC 10.9 10^3/uL (5.0-10.0)
[2024-05-19 06:41] LABS: PROTHROMBIN TIME 10.4 SEC (9.0-12.0); PTT,PARTIAL THROMBOPLSTIN TIME 29.5 SEC (22.0-34.0)
[2024-05-19 06:54] LABS: ALBUMIN 2.9 g/dL (3.4-5.0); ANION GAP 18.6 mEq/L (7-13); BILIRUBIN TOTAL 0.6 mg/dL (0.2-1.0); BUN/CREATININE RATIO 13.9 (No establ ref range); CALCIUM 10.2 mg/dL (8.5-10.1); CREATININE 1.66 mg/dL (0.55-1.02); EST CRCL DRUG DOSING (CG) 21.61 mL/min; MAGNESIUM 2.5 mg/dL (1.8-2.4); POTASSIUM,K 4.6 mmol/L (3.5-5.1); PROTEIN TOTAL,TP 6.6 g/dL (6.4-8.2)
[2024-05-19 06:59] LABS: A/G RATIO 0.78
[2024-05-19] MEDS ORDERED: Bumetanide 1 MG Tab PO SCH (08:00)
[2024-05-19] MEDS ORDERED: Spironolactone 25 MG Tab PO SCH (09:00)
[2024-05-19] MEDS: cefTRIAXone 1 GM Vial IVPUSH SCH (10:08)
[2024-05-19] MEDS: DULoxetine 30 MG Cap PO SCH (10:13)
[2024-05-19] MEDS: Metoprolol Succinate 25 MG Tab.ER PO SCH (10:13)
[2024-05-19] MEDS: Ascorbic Acid 500 MG Tab PO SCH (10:13)
[2024-05-19] MEDS: rOPINIRole 0.25 MG Tab PO SCH ×2 (10:13→21:30)
[2024-05-19] MEDS: Potassium Chloride 10 MEQ Tab.ER PO SCH (10:13)
[2024-05-19] MEDS: Morphine 15 MG Tab.ER PO SCH (10:14)
[2024-05-19] MEDS: Ferrous Sulfate 325 MG Tab PO SCH (10:14)
[2024-05-19 13:51] LABS: HEMOGLOBIN A1C 6.4 % (<5.7)
[2024-05-19] MEDS: Ketorolac 30 MG/ML SDV IVPUSH PRN (15:43)
[2024-05-20] MEDS: Sodium Chloride 0.9% 10 ML Syringe FLUSH PRN (05:21)
[2024-05-20 07:51] LABS: BASOPHILS PERCENT AUTO 0.1 % (0.0-1.0); HEMOGLOBIN 12.8 g/dL (12.0-16.0); LYMPHOCYTES PERCENT AUTO 4.8 % (20.5-50.1); MEAN CORPUSCULAR HEMOGLOBIN 28.1 pg (27.0-34.0); MEAN CORPUSCULAR HGB CONC 31.2 g/dL (33.0-35.0); MEAN CORPUSCULAR VOLUME 90.1 fL (80-100); MONOCYTES PERCENT AUTO 5.5 % (2-8); NEUTROPHILS PERCENT AUTO 89.6 % (42.2-75.2); PLATELET COUNT,PLT 254 10^3/uL (150-450); RED BLOOD CELL COUNT 4.55 10^6/uL (4.2-5.4); WHITE BLOOD CELL COUNT,WBC 15.5 10^3/uL (5.0-10.0)
[2024-05-20 08:09] LABS: ANION GAP 12.6 mEq/L (7-13); BILIRUBIN TOTAL 0.4 mg/dL (0.2-1.0); BUN/CREATININE RATIO 20.4 (No establ ref range); CALCIUM 10.3 mg/dL (8.5-10.1); CREATININE 1.67 mg/dL (0.55-1.02); EST CRCL DRUG DOSING (CG) 21.48 mL/min; MAGNESIUM 2.4 mg/dL (1.8-2.4); POTASSIUM,K 4.6 mmol/L (3.5-5.1); PROTEIN TOTAL,TP 6.6 g/dL (6.4-8.2)
[2024-05-20 08:10] LABS: A/G RATIO 0.83
== END 2024-05-20 09:15 | DRG 192 ==
LOC: DL.ED 11:18 → DL.MS 12:44
PROVIDERS: ADMIT Internal Medicine; ATTEND Student in an Organized Health Care Education/Training Program
DX: J44.1 Chronic obstructive pulmonary disease with (acute) exacerbation (principal); K21.9 Gastro-esophageal reflux disease without esophagitis; E66.9 Obesity, unspecified; N18.9 Chronic kidney disease, unspecified; F03.90 Unspecified dementia, unspecified severity, without behavioral disturbance, psychotic disturbance, mood disturbance, and anxiety; H26.9 Unspecified cataract; M19.90 Unspecified osteoarthritis, unspecified site; I12.9 Hypertensive chronic kidney disease with stage 1 through stage 4 chronic kidney disease, or unspecified chronic kidney disease; E88.09 Other disorders of plasma-protein metabolism, not elsewhere classified; E83.52 Hypercalcemia; R79.89 Other specified abnormal findings of blood chemistry; Z96.653 Presence of artificial knee joint, bilateral; E66.811 Obesity, class 1; Z99.81 Dependence on supplemental oxygen; Z79.82 Long term (current) use of aspirin; S42.002D Fracture of unspecified part of left clavicle, subsequent encounter for fracture with routine healing; W18.30XD Fall on same level, unspecified, subsequent encounter; Z88.0 Allergy status to penicillin; Z88.8 Allergy status to other drugs, medicaments and biological substances; Z79.01 Long term (current) use of anticoagulants; Z79.899 Other long term (current) drug therapy; Z79.1 Long term (current) use of non-steroidal anti-inflammatories (NSAID); I25.2 Old myocardial infarction; Z95.5 Presence of coronary angioplasty implant and graft; Z87.440 Personal history of urinary (tract) infections; Z86.73 Personal history of transient ischemic attack (TIA), and cerebral infarction without residual deficits; Z86.16 Personal history of COVID-19; Z90.49 Acquired absence of other specified parts of digestive tract; Z87.891 Personal history of nicotine dependence; Z79.51 Long term (current) use of inhaled steroids
CPT/HCPCS: 0241U; 36415; 71045; 73030; 80053; 83036; 83735; 83880; 85025; 85610; 85730; 94640; 94664; 96374; 99284; 99285; 99222; 99232; 99238; A9270-GY; J0456; J0696; J1885; J2919; J7050; J7620-GY

== ENCOUNTER 2024-06-11 09:04 | Inpatient (IN) | payer MEDICARE, MEDICAID ==
[2024-06-11] MEDS: Albuterol/Ipratropium 3.0-0.5 MG/3 ML Neb Soln NEB ONE ×2 (08:07→09:50)
[2024-06-11 08:17] LABS: BASOPHILS PERCENT AUTO 0.2 % (0.0-1.0); HEMATOCRIT 41.4 % (37.0-47.0); LYMPHOCYTES PERCENT AUTO 11.1 % (20.5-50.1); MEAN CORPUSCULAR HEMOGLOBIN 28.1 pg (27.0-34.0); MEAN CORPUSCULAR HGB CONC 31.4 g/dL (33.0-35.0); MEAN CORPUSCULAR VOLUME 89.6 fL (80-100); MONOCYTES PERCENT AUTO 9.4 % (2-8); NEUTROPHILS PERCENT AUTO 77.3 % (42.2-75.2); PLATELET COUNT,PLT 205 10^3/uL (150-450); RED BLOOD CELL COUNT 4.62 10^6/uL (4.2-5.4); WHITE BLOOD CELL COUNT,WBC 9.5 10^3/uL (5.0-10.0)
[2024-06-11] MEDS: methylPREDNISolone Sodium Succinate 40 MG/1 ML SDV IVPUSH ONE (08:22)
[2024-06-11 08:32] LABS: INR 1.1 (0.9-1.2); PROTHROMBIN TIME 11.9 SEC (9.0-12.0)
[2024-06-11 08:34] LABS: B-TYPE NATRIURETIC PEPTIDE,BNP 157 pg/ml (0-100)
[2024-06-11 08:38] LABS: ALANINE AMINOTRANSFERASE,ALT 19 U/L (14-59); ALBUMIN 2.6 g/dL (3.4-5.0); ALKALINE PHOSPHATASE 136 U/L (46-116); ASPARTATE AMNIOTRANSFERASE,AST 19 U/L (15-37); BLOOD UREA NITROGEN,BUN 24 mg/dL (7-18); BUN/CREATININE RATIO 14.5 (No establ ref range); CALCIUM 9.9 mg/dL (8.5-10.1); CARBON DIOXIDE,CO2 27 mmol/L (21-32); CREATININE 1.65 mg/dL (0.55-1.02); GLUCOSE RANDOM 112 mg/dL (70-99); MAGNESIUM 1.9 mg/dL (1.8-2.4); PROTEIN TOTAL,TP 6.6 g/dL (6.4-8.2)
[2024-06-11 08:42] LABS: ANION GAP 11.9 mEq/L (7-13); CHLORIDE,CL 100 mmol/L (98-107); POTASSIUM,K 4.9 mmol/L (3.5-5.1); SODIUM,NA 134 mmol/L (136-145)
[2024-06-11 08:46] LABS: A/G RATIO 0.65; ESTIMATED GFR 31 mL/min (>=60)
[2024-06-11] MEDS: Sodium Chloride 0.9% 500 ML IV ONE (09:40)
[2024-06-11] MEDS ORDERED: Sodium Chloride 0.9% 10 ML Syringe FLUSH PRN (11:48)
[2024-06-11] MEDS ORDERED: Polyethylene Glycol 3350 Powder 17 GM Packet PO PRN (11:48)
[2024-06-11] MEDS ORDERED: Ondansetron 4 MG/2 ML SDV IVPUSH PRN (11:48)
[2024-06-11] MEDS ORDERED: Acetaminophen 325 MG Tab PO PRN (11:48)
[2024-06-11] MEDS ORDERED: Sennosides/Docusate Sodium 50-8.6 MG Tab PO PRN (11:48)
[2024-06-11] MEDS ORDERED: Docusate Sodium 100 MG Cap PO PRN (11:48)
[2024-06-11] MEDS ORDERED: Azithromycin 500 MG in Sodium Chloride 0.9% 250 ML IV SCH (12:00)
[2024-06-11] MEDS: Albuterol/Ipratropium 3.0-0.5 MG/3 ML Neb Soln NEB SCH (12:34)
[2024-06-11] MEDS: guaiFENesin 600 MG Tab.ER PO SCH ×2 (14:22→14:34)
[2024-06-11] MEDS: methylPREDNISolone Sodium Succinate 40 MG/1 ML SDV IVPUSH SCH ×2 (14:23→14:34)
[2024-06-11] MEDS: Levofloxacin/Dextrose 5%-Water 500 MG in Premix Bag 1 BAG IV ONE ×2 (14:23→14:33)
[2024-06-11] MEDS: Formoterol/Mometasone 200-5 MCG 8.8 GM Inhaler INH SCH (17:45)
[2024-06-11] MEDS: Gabapentin 100 MG Cap PO SCH (21:58)
[2024-06-11] MEDS: Morphine 15 MG Tab PO PRN (21:58)
[2024-06-11] MEDS: Apixaban 5 MG Tab PO SCH (21:58)
[2024-06-11] MEDS: Melatonin 3 MG Tab PO PRN (21:58)
[2024-06-11] MEDS: Sodium Chloride 0.9% 10 ML Syringe FLUSH SCH (22:00)
[2024-06-11] MEDS: Tolterodine 2 MG Tab PO SCH (22:00)
[2024-06-11] MEDS: rOPINIRole 0.25 MG Tab PO SCH (22:00)
[2024-06-12] MEDS: Acetaminophen/HYDROcodone 325-5 MG Tab PO PRN (05:53)
[2024-06-12 06:50] LABS: MEAN CORPUSCULAR HEMOGLOBIN 27.9 pg (27.0-34.0); MEAN CORPUSCULAR HGB CONC 31.7 g/dL (33.0-35.0); PLATELET COUNT,PLT 204 10^3/uL (150-450); RED BLOOD CELL COUNT 4.66 10^6/uL (4.2-5.4); WHITE BLOOD CELL COUNT,WBC 6.4 10^3/uL (5.0-10.0)
[2024-06-12 06:55] LABS: BASOPHILS PERCENT AUTO 0.2 % (0.0-1.0); LYMPHOCYTES PERCENT AUTO 7.2 % (20.5-50.1); MONOCYTES PERCENT AUTO 3.8 % (2-8); NEUTROPHILS PERCENT AUTO 88.8 % (42.2-75.2)
[2024-06-12 07:08] LABS: ALBUMIN 2.5 g/dL (3.4-5.0); ANION GAP 13.6 mEq/L (7-13); BILIRUBIN TOTAL 0.9 mg/dL (0.2-1.0); BUN/CREATININE RATIO 15.1 (No establ ref range); CALCIUM 10.3 mg/dL (8.5-10.1); CREATININE 1.59 mg/dL (0.55-1.02); EST CRCL DRUG DOSING (CG) 20.58 mL/min; POTASSIUM,K 4.6 mmol/L (3.5-5.1); PROTEIN TOTAL,TP 6.6 g/dL (6.4-8.2)
[2024-06-12 07:24] LABS: A/G RATIO 0.61
[2024-06-12 07:29] LABS: INR 1.2 (0.9-1.2); PROTHROMBIN TIME 12.4 SEC (9.0-12.0)
[2024-06-12 08:08] LABS: BAND PERCENT MAN 1 %; LYMPHOCYTES PERCENT MAN 5 % (20-50); MONOCYTES PERCENT MAN 4 % (2-8); SEG NEUTROPHILS PERCENT MAN 91 % (42-75)
[2024-06-12] MEDS: DULoxetine 30 MG Cap PO SCH (08:34)
[2024-06-12] MEDS: Pantoprazole 40 MG Tab.CR PO SCH ×2 (08:34→17:09)
[2024-06-12] MEDS: Ascorbic Acid 500 MG Tab PO SCH (08:35)
[2024-06-12] MEDS: Spironolactone 25 MG Tab PO SCH (08:35)
[2024-06-12] MEDS: Ferrous Sulfate 325 MG Tab PO SCH (08:36)
[2024-06-12] MEDS: Metoprolol Succinate 25 MG Tab.ER PO SCH (08:36)
[2024-06-12] MEDS: Levofloxacin/Dextrose 5%-Water 500 MG in Premix Bag 1 BAG IV SCH (13:08)
[2024-06-12] MEDS: Bumetanide 1 MG Tab PO SCH (13:08)
[2024-06-12] MEDS ORDERED: Naloxone 2 MG/2 ML Syringe IVPUSH PRN (14:59)
[2024-06-12] MEDS ORDERED: Ziprasidone Mesylate 20 MG Vial IM PRN (15:00)
[2024-06-12] MEDS: Morphine 15 MG Tab PO PRN ×2 (15:04→23:52)
[2024-06-12] MEDS ORDERED: 50% Dextrose in Water 50 ML Syringe IVPUSH PRN (15:13)
[2024-06-12] MEDS ORDERED: Glucagon,Human Recombinant 1 MG Vial IM PRN (15:13)
[2024-06-12] MEDS ORDERED: Aminophylline 500 MG in Sodium Chloride 0.9% 500 ML IV SCH (15:15)
[2024-06-12] MEDS: Sodium Chloride 0.9% 1,000 ML IV SCH (15:30)
[2024-06-12] MEDS: Azithromycin 500 MG in Sodium Chloride 0.9% 250 ML IV ONE (15:48)
[2024-06-12] MEDS: Ziprasidone Mesylate 20 MG Vial IM ONE ×2 (15:59→16:00)
[2024-06-12] MEDS: Morphine 2 MG/ML SYRINGE IVPUSH ONE (16:00)
[2024-06-12] MEDS: methylPREDNISolone Sodium Succinate 40 MG/1 ML SDV IVPUSH SCH (17:09)
[2024-06-12] MEDS: Magnesium Oxide 400 MG Tab PO SCH (17:09)
[2024-06-12] MEDS: Insulin Lispro 100 Units/ML 3 ML Vial SUBCUT SCH (17:15)
[2024-06-12] MEDS: Budesonide 0.5 MG/2 ML Neb Susp NEB SCH (17:22)
[2024-06-12] MEDS: Albuterol/Ipratropium 3.0-0.5 MG/3 ML Neb Soln NEB PRN (17:24)
[2024-06-12] MEDS ORDERED: methylPREDNISolone Sodium Succinate 40 MG/1 ML SDV IVPUSH SCH (18:00)
[2024-06-12] MEDS ORDERED: Bumetanide 1 MG Tab PO SCH (18:00)
[2024-06-12] MEDS: Aminophylline 500 MG in Sodium Chloride 0.9% 500 ML IV SCH (19:00)
[2024-06-12] MEDS: Arformoterol 15 MCG/2 ML Neb Soln NEB SCH (20:25)
[2024-06-12] MEDS: Saccharomyces Boulardii (Probiotic) 250 MG Cap PO SCH (20:31)
[2024-06-12] MEDS: Ziprasidone Mesylate 20 MG Vial IM PRN (20:41)
[2024-06-12] MEDS ORDERED: QUEtiapine 25 MG Tab PO SCH (21:00)
[2024-06-13] MEDS: Ziprasidone Mesylate 20 MG Vial IM ONE (00:14)
[2024-06-13 06:46] LABS: HEMATOCRIT 38.7 % (37.0-47.0); HEMOGLOBIN 12.2 g/dL (12.0-16.0); LYMPHOCYTES PERCENT AUTO 5.1 % (20.5-50.1); MEAN CORPUSCULAR HEMOGLOBIN 27.9 pg (27.0-34.0); MEAN CORPUSCULAR HGB CONC 31.5 g/dL (33.0-35.0); MEAN CORPUSCULAR VOLUME 88.4 fL (80-100); MONOCYTES PERCENT AUTO 4.4 % (2-8); NEUTROPHILS PERCENT AUTO 90.5 % (42.2-75.2); PLATELET COUNT,PLT 228 10^3/uL (150-450); RED BLOOD CELL COUNT 4.38 10^6/uL (4.2-5.4); WHITE BLOOD CELL COUNT,WBC 9.5 10^3/uL (5.0-10.0)
[2024-06-13 07:19] LABS: ALBUMIN 2.4 g/dL (3.4-5.0); ANION GAP 13.8 mEq/L (7-13); BILIRUBIN TOTAL 0.5 mg/dL (0.2-1.0); BUN/CREATININE RATIO 14.9 (No establ ref range); C-REACTIVE PROTEIN 2.82 ng/dL (<=0.50); CALCIUM 10.1 mg/dL (8.5-10.1); CREATININE 1.54 mg/dL (0.55-1.02); EST CRCL DRUG DOSING (CG) 21.25 mL/min; MAGNESIUM 2.1 mg/dL (1.8-2.4); POTASSIUM,K 3.8 mmol/L (3.5-5.1); PROTEIN TOTAL,TP 6.2 g/dL (6.4-8.2)
[2024-06-13 07:28] LABS: A/G RATIO 0.63
[2024-06-13] MEDS: Budesonide 0.5 MG/2 ML Neb Susp INH SCH ×2 (07:44→18:07)
[2024-06-13] MEDS ORDERED: Hydrochlorothiazide/Triamterene 25-37.5 Tab PO SCH (09:00)
[2024-06-13] MEDS ORDERED: Non-Formulary Medication 1 Each (Umeclidinium Bromide [Incruse Ellipta*] 62.5 MCG Blst.W.D INH SCH (09:00)
[2024-06-13] MEDS: Azithromycin 500 MG in Sodium Chloride 0.9% 250 ML IV SCH (10:24)
[2024-06-13] MEDS: Polyethylene Glycol 3350 Powder 17 GM Packet PO SCH (10:25)
[2024-06-13] MEDS: Modafinil 100 MG Tab PO SCH (10:25)
[2024-06-13] MEDS: cefTRIAXone 1 GM Vial IVPUSH SCH (10:28)
[2024-06-13] MEDS ORDERED: Menthol/Zinc Oxide Ointment 113 GM Tube TOP PRN (11:19)
[2024-06-13] MEDS: Tiotropium Bromide 4 GM Inhalation Spray (2.5mcg/1 dose; 10 doses) INH SCH (13:59)
[2024-06-13] MEDS ORDERED: methylPREDNISolone Sodium Succinate 40 MG/1 ML SDV IVPUSH SCH (14:00)
[2024-06-13] MEDS: methylPREDNISolone Sodium Succinate 40 MG/1 ML SDV IVPUSH SCH (17:24)
[2024-06-13] MEDS: Arformoterol 15 MCG/2 ML Neb Soln NEB SCH (18:06)
[2024-06-13] MEDS: Gabapentin 100 MG Cap PO SCH (21:25)
[2024-06-14 06:23] LABS: HEMATOCRIT 39.9 % (37.0-47.0); HEMOGLOBIN 12.6 g/dL (12.0-16.0); MEAN CORPUSCULAR HEMOGLOBIN 27.9 pg (27.0-34.0); MEAN CORPUSCULAR HGB CONC 31.6 g/dL (33.0-35.0); MEAN CORPUSCULAR VOLUME 88.5 fL (80-100); PLATELET COUNT,PLT 251 10^3/uL (150-450); RED BLOOD CELL COUNT 4.51 10^6/uL (4.2-5.4); WHITE BLOOD CELL COUNT,WBC 10.9 10^3/uL (5.0-10.0)
[2024-06-14 06:26] LABS: MONOCYTES PERCENT AUTO 4.9 % (2-8); NEUTROPHILS PERCENT AUTO 89.9 % (42.2-75.2)
[2024-06-14 06:27] LABS: BASOPHILS PERCENT AUTO 0.1 % (0.0-1.0); EOSINOPHILS PERCENT AUTO 0.1 % (1.0-3.0)
[2024-06-14 06:46] LABS: LYMPHOCYTES PERCENT MAN 3 % (20-50); MONOCYTES PERCENT MAN 4 % (2-8); SEG NEUTROPHILS PERCENT MAN 93 % (42-75)
[2024-06-14 06:49] LABS: ALBUMIN 2.5 g/dL (3.4-5.0); ANION GAP 5.1 mEq/L (7-13); BILIRUBIN TOTAL 0.4 mg/dL (0.2-1.0); BUN/CREATININE RATIO 15.9 (No establ ref range); C-REACTIVE PROTEIN 1.17 ng/dL (<=0.50); CALCIUM 10.2 mg/dL (8.5-10.1); CREATININE 1.51 mg/dL (0.55-1.02); EST CRCL DRUG DOSING (CG) 21.68 mL/min; MAGNESIUM 2.3 mg/dL (1.8-2.4); POTASSIUM,K 4.1 mmol/L (3.5-5.1); PROTEIN TOTAL,TP 6.1 g/dL (6.4-8.2)
[2024-06-14 06:50] LABS: A/G RATIO 0.69
[2024-06-14] MEDS: Modafinil 100 MG Tab PO SCH (09:13)
[2024-06-14] MEDS ORDERED: LORazepam 2 MG/ML SDV IVPUSH PRN (15:07)
[2024-06-14] MEDS ORDERED: Morphine 4 MG/ML Syringe IVPUSH PRN (15:58)
[2024-06-14] MEDS ORDERED: Atropine 1% Ophth Soln 5 ML Bottle SL PRN (16:00)
[2024-06-14] MEDS: Pantoprazole 40 MG Vial IVPUSH SCH (16:19)
[2024-06-14] MEDS: Scopalamine 1mg/3day Transdermal Patch TOP ONE (18:25)
[2024-06-14] MEDS: LORazepam 2 MG/ML SDV IVPUSH PRN (21:00)
[2024-06-14] MEDS: Check SCOPOLAMINE Patch TRDERM SCH (21:01)
[2024-06-14] MEDS: Morphine 4 MG/ML Syringe IVPUSH PRN (22:04)
[2024-06-14] MEDS: Morphine 4 MG/ML Syringe IVPUSH ONE (23:31)
[2024-06-14] MEDS: Ziprasidone Mesylate 20 MG Vial IM ONE (23:31)
[2024-06-15] MEDS: Morphine 4 MG/ML Syringe IVPUSH PRN (01:52)
[2024-06-15] MEDS ORDERED: Hydrochlorothiazide/Triamterene 25-37.5 Tab PO SCH (09:00)
== END 2024-06-15 09:45 | disposition other institution (70) | DRG 189 ==
LOC: DL.ED 09:04 → DL.MS 10:03
PROVIDERS: ADMIT Internal Medicine; ATTEND Internal Medicine
DX: J96.01 Acute respiratory failure with hypoxia (principal); J96.21 Acute and chronic respiratory failure with hypoxia; G93.41 Metabolic encephalopathy; E66.9 Obesity, unspecified; J44.1 Chronic obstructive pulmonary disease with (acute) exacerbation; E87.1 Hypo-osmolality and hyponatremia; Z79.2 Long term (current) use of antibiotics; Z66 Do not resuscitate; Z51.5 Encounter for palliative care; Z68.33 Body mass index [BMI] 33.0-33.9, adult; I48.91 Unspecified atrial fibrillation; I25.10 Atherosclerotic heart disease of native coronary artery without angina pectoris; N18.9 Chronic kidney disease, unspecified; I13.10 Hypertensive heart and chronic kidney disease without heart failure, with stage 1 through stage 4 chronic kidney disease, or unspecified chronic kidney disease; F03.90 Unspecified dementia, unspecified severity, without behavioral disturbance, psychotic disturbance, mood disturbance, and anxiety; K21.9 Gastro-esophageal reflux disease without esophagitis; K80.20 Calculus of gallbladder without cholecystitis without obstruction; E86.0 Dehydration; E83.52 Hypercalcemia; R73.9 Hyperglycemia, unspecified; G62.9 Polyneuropathy, unspecified; E88.09 Other disorders of plasma-protein metabolism, not elsewhere classified; R44.1 Visual hallucinations; G89.4 Chronic pain syndrome; M19.90 Unspecified osteoarthritis, unspecified site; E66.811 Obesity, class 1; Z95.5 Presence of coronary angioplasty implant and graft; Z96.653 Presence of artificial knee joint, bilateral; D63.1 Anemia in chronic kidney disease; F91.9 Conduct disorder, unspecified; I25.2 Old myocardial infarction; Z86.73 Personal history of transient ischemic attack (TIA), and cerebral infarction without residual deficits; Z79.01 Long term (current) use of anticoagulants; Z79.899 Other long term (current) drug therapy; Z88.8 Allergy status to other drugs, medicaments and biological substances; Z88.0 Allergy status to penicillin; Z86.16 Personal history of COVID-19; Z98.49 Cataract extraction status, unspecified eye; Z90.49 Acquired absence of other specified parts of digestive tract; Z90.79 Acquired absence of other genital organ(s); Z87.891 Personal history of nicotine dependence; Z87.440 Personal history of urinary (tract) infections; Z90.722 Acquired absence of ovaries, bilateral
CPT/HCPCS: 36415; 71045; 80053; 83735; 83880; 84484; 85025; 85610; 87428; 93005; 93010; 94640 ×4; 96374; 99285 ×2; A9270 ×2; J2919; J7040; 80198; 82947; 85730; 86140; 94664; 97161-GP; 97165-GO; J0280; J0456; J0696; J1815-GY; J1956; J2060; J2270; J3486; J3490; J7030; J7050